=== PATIENT | female | born 1960 | race Caucasian/White ===

== ENCOUNTER 2023-08-29 21:48 | Outpatient (CLI) | payer MEDICAID, SELFPAY | END 2023-08-29 21:49 | disposition home or self-care (01) | LOC: AMB 09-05 05:24 | PROVIDERS: Visit Provider Emergency Medicine | DX: R07.89 Other chest pain (principal) | CPT/HCPCS: A0425; A0427 ==

== ENCOUNTER 2023-08-29 22:09 | Emergency (ER) | payer MEDICAID, SELFPAY ==
[2023-08-29 22:10] VITALS: BP 158/91; PULSE 96; RESP 16; TEMP 36.9; O2SAT 94; BMI 26.6
--- NOTE | 2023-08-29 22:28 | XR_ITS ---
Patient: SKY DUNN Facility:?[facility] Patient ID:?[id number] Site Patient ID:?[id number]. Site :?[id number] Study:?XRay-Chest 2v-08/29/2023 11:49:17 PM Ordering Physician:KWAKU Final Report: INDICATION: Chest pain. TECHNIQUE: Chest 2 views. COMPARISON: None. FINDINGS: Cardiovascular and mediastinum: Cardiomediastinal silhouette is within normal limits Lungs and pleural spaces: Lungs are clear. No sign of pleural effusion. No pneumothorax. Bones and soft tissues: No significant findings. IMPRESSION: No acute or significant findings. Dictated by John Ferrari MD @ 08/30/2023 1:07:24 AM Signed by:?John Ferrari MD @08/30/2023 1:07:24 AM (Electronic Signature)
--- NOTE | 2023-08-29 22:51 | ED.GENADULT ---
HPI - General Adult General Date Seen: 08/29/23 Chief complaint: Chest Pain Stated complaint: chest pain Time Seen by Provider: 08/29/23 22:28 History of Present Illness HPI narrative: 63-year-old female with a complex past medical history brought to the ER today by EMS from her independent. It past medical history according to the patient includes pancreatitis (possibly idiopathic, possibly related to gallbladder polyps? ) Chronic iron deficiency anemia, and 2 previous heart attacks (apparently had an angiogram done at [facility] in [facility] about 2 or 3 years ago after her 1st heart attack that showed no blockages). She is also on metoprolol for high blood pressure. No cholesterol meds. No diabetes. She had a hysterectomy at age 25 heavy vaginal bleeding. She has chronic neuropathy causing difficulty with sensory miramontes in her arms and legs which makes it hard for her to walk. She says it is possibly Cwebptf-Debty-Mjfmf. She has been rehabbing in 1st a shelter, then assisted living, and now an independent living for the past several months. She says she has been her current independent living since the end of June. She says initially she was not very nice when she got there because she had 3 friends who had in rapid succession. She was apparently told by the management today that they do not like her and that they want her to move out. Tonight she says she was in her apartment. She was worrying about her living situation. At around 9:00 p.m. or so she started having chest pain. She says she was just thinking about her situation with the pain started. It is in the center of her chest. It is not radiate. She felt short of breath. Her heart was racing. She was nauseous. She vomited 1 time per EMS. She is not able to describe the pain. No other symptoms. She called 911. Paramedics did an EKG that showed no ST elevations. Patient was refusing an IV. She had already taken aspirin 320 have 5 mg today so EMS did not administer any more. They did give 1 nitro which seemed to help her chest pain. She was nauseous and vomited once EN route. Initial heart rate was 130 but came down to about 100 in the rig. She does have chronic lower extremity edema worse in the right lower extremity than the left. This is unchanged from normal. No recent cough. No fever. In review of medical records I see she was in the hospital at [facility] last February. Past medical history according to [facility] care link includes: Coronary artery disease TIA Hypertension Graves disease Thyroidectomy Hypothyroidism Acute pancreatitis Foot cellulitis Degeneration of retina Posterior vitreous detachment Fatty liver Cervical radiculopathy Migraine headache Depressive disorder PTSD Alcohol use disorder, mild Tobacco use She was admitted to [facility] January 2023 for pancreatitis of unclear etiology. She had presented to the ER with right-sided abdominal pain radiating through to the back. Gallbladder ultrasound showed a polyp and possible stones. She was to follow up with surgery as an outpatient. She was seen in the ER 03/08/2023 for chest pain. D-dimer was normal. Troponin was normal. White count was 13.7. Hemoglobin 13.6. EKG showed sinus rhythm with an inferior infarct. Chest x-ray was normal. 2 hour delta troponin was ordered but the patient decline and requested to go home. Related Data Home Medications Medication Instructions Recorded Confirmed acyclovir 5 % topical ointment 1 applic topical 6XD 08/29/23 08/29/23 aspirin 81 mg capsule 81 mg PO DAILY 08/29/23 08/29/23 baclofen 10 mg tablet 10 mg PO Q8H 08/29/23 08/29/23 calcium carbonate 200 mg calcium 200 mg PO Q6H PRN 08/29/23 08/29/23 (500 mg) chewable tablet (Antacid (calcium carbonate)) cyanocobalamin (vitamin B-12) 1,000 mcg PO DAILY 08/29/23 08/29/23 1,000 mcg capsule folic acid 1 mg tablet 1 mg PO DAILY 08/29/23 08/29/23 furosemide 20 mg tablet (Lasix) 20 mg PO DAILY 08/29/23 08/29/23 gabapentin 300 mg capsule 900 mg PO Q8H 08/29/23 08/29/23 levothyroxine 112 mcg tablet 112 mcg PO DAILY 08/29/23 08/29/23 (Synthroid) loperamide 2 mg capsule (Imodium 2 mg PO Q6H PRN 08/29/23 08/29/23 A-D) methocarbamol 750 mg tablet 750 mg PO Q6H 08/29/23 08/29/23 metoprolol succinate 25 mg 25 mg PO DAILY 08/29/23 08/29/23 tablet,extended release 24 hr skvsxgle-dev-hpyzu acid 0.4 1 tab PO DAILY 08/29/23 08/29/23 mg-lycopene 300 mcg-lutein 250 mcg tablet (Cerovite Senior) ondansetron HCl 4 mg tablet 4 mg PO Q6-8H PRN 08/29/23 08/29/23 oxycodone-acetaminophen 5 mg-325 1 tab PO Q6H 08/29/23 08/29/23 mg tablet pantoprazole 40 mg tablet,delayed 40 mg PO BID 08/29/23 08/29/23 release (Protonix) peg 400-propylene glycol (PF) 0.4 1 drp ophthalmic (eye) DAILY PRN 08/29/23 08/29/23 %-0.3 % eye drops in a dropperette (Systane (PF)) prednisone 20 mg tablet 40 mg PO DAILY 08/29/23 08/29/23 sodium chloride 0.65 % nasal spray 1 spray intranasal Q4H PRN 08/29/23 08/29/23 aerosol (Saline Nasal) thiamine HCl (vitamin B1) 250 mg 250 mg PO DAILY 08/29/23 08/29/23 tablet triamcinolone acetonide 0.1 % 1 applic topical BID 08/29/23 08/29/23 topical cream Allergies Allergy/AdvReac Type Severity Reaction Status Date / Time clindamycin Allergy Severe Anaphylaxis Verified 08/29/23 22:46 cephalexin Allergy Mild Rash Verified 08/29/23 22:46 codeine Allergy Mild Itching Verified 08/29/23 22:46 erythromycin base Allergy Mild Rash Verified 08/29/23 22:46 meperidine [From Demerol] Allergy Mild Rash Verified 08/29/23 22:46 morphine Allergy Mild Rash Verified 08/29/23 22:46 propoxyphene Allergy Mild Rash Verified 08/29/23 22:46 Sulfa (Sulfonamide Allergy Mild Rash Verified 08/29/23 22:46 Antibiotics) tetracycline Allergy Mild Itching Verified 08/29/23 22:46 Penicillins Allergy Unknown Verified 08/29/23 22:46 cyclobenzaprine AdvReac Mild Anxiety Verified 08/29/23 22:46 Exam Narrative: Exam Narrative: Constitutional: Appears well-developed and well-nourished. Alert. Conversant. Non toxic. HENT: Head: Atraumatic. Nose: Nose normal. Mouth/Throat: Oral mucosa is clear and moist. no trismus. Pharynx normal. Tonsils symmetric. No tonsillar enlargement, erythema, or exudate. Eyes: Conjunctivae normal. EOM normal. Pupils equal, round, and reactive to light. No scleral icterus. Neck: Normal range of motion. Neck supple. No tracheal deviation present. No JVD Cardiovascular: Normal rate, regular rhythm. No gallop. No friction rub. No murmur heard. Symmetric radial and PT artery pulses Pulmonary/Chest: Effort normal. No stridor. No respiratory distress. No wheezes. No rales. No rhonchi . No tenderness. Abdominal: Soft. Bowel sounds normal. No distension. No mass. No tenderness. No rebound. No guarding. Musculoskeletal: RUE: Normal range of motion. No tenderness. No deformity LUE: Normal range of motion. No tenderness. No deformity RLE: Normal range of motion. 1+ edema. No tenderness. No deformity LLE: Normal range of motion. Trace edema. No tenderness. No deformity Patient's that she has has chronic asymmetric R>L lower extremity edema Neurological: Alert and oriented to person, place, and time. Normal strength. CN II-VII intact. No sensory deficit. GCS eye subscore is 4. GCS verbal subscore is 5. GCS motor subscore is 6. Normal coordination Skin: Skin is warm and dry. No rash noted. No pallor. Normal capillary refill. Psychiatric: Somewhat poor eye contact. She has a rambling historian. She is talking a lot about her difficult upbringing. She talks for a while about how she had heavy. Throughout her adolescent that led to a hysterectomy at age 21. She says her family does not like her and tell her that she is faking all of her illness. She says that the people at her independent living do not like her and have asked her to move out. She does not know why they do not like her. She says that 3 of her friends shortly after she moved into her independent living so she was ?not a very nice person for a while?. While she was grieving for their . She says she was told today that she would have to move out of the appended living. She has superficial healed scars on her left forearm which are apparently from self-harming behavior that occurred when she was an adolescent. She has not self harming lately. No thoughts of suicide. While the nurses are trying to start an IV to get a workup done she has an angry outburst at them. She initially shout that she just wants to go home. I responded to the room. I was able to deescalate her with verbal deescalation. Ultimately she agrees to allow them to try to start an IV and at least check labs. Const: Vital Signs, click to edit/add: Vital Signs - 24 hr 08/29/23 22:10 08/29/23 23:48 Temperature 98.4 F 98.6 F Pulse Rate [Pulse Oximeter] 96 86 Respiratory Rate 16 16 Blood Pressure [Le ft Upper Arm] 158/91 H 161/85 H Pulse Oximetry 94 93 Oxygen Delivery Me thod Room Air Room Air Course Course ED Course: Recheck-as the nurse was working on starting her IV she became angry and insisted on discharging to home. I went back to a room. I was able to calm her down. She agreed to go ahead with workup and allowed lab draw. Reevaluation(s) Reevaluation #1: Recheck-nurses are reporting that she has a difficult stick and they are having hard time getting an IV so we decided is to labs with butterfly. Patient does not want any further attempts at IV. We decided to go ahead with butterfly because At least we can get troponin to rule out NSTEMI that would be sufficient. If she does rule in she would need an IV for heparinization and further meds. Reevaluation #2: Recheck-labs were successfully drawn. Reevaluation #3: Recheck-at about 1145 patient is insisting on discharge. Unclear why she has changed her mind about staying. She wants discharge home. EKG nonischemic troponin negative. D-dimer pending. My review her chest x-ray shows no acute abnormality but formal radiology interpretation is not back yet. Vital Signs Vital signs: Initial Vital Signs Temperature 98.4 F 08/29/23 22:10 Temperature Source Temporal Artery Scan 08/29/23 22:10 Pulse Rate 96 08/29/23 22:10 Respiratory Rate 16 08/29/23 22:10 Blood Pressure 158/91 H 08/29/23 22:10 Blood Pressure Mean 113 H 08/29/23 22:10 Blood Pressure Position Supine 08/29/23 22:10 Pulse Oximetry 94 08/29/23 22:10 Oxygen Delivery Method Room Air 08/29/23 22:10 Vital Signs Temperature 98.4 F 08/29/23 22:10 Pulse Rate 96 08/29/23 22:10 Respiratory Rate 16 08/29/23 22:10 Blood Pressure 158/91 H 08/29/23 22:10 Pulse Oximetry 94 08/29/23 22:10 Oxygen Delivery Method Room Air 08/29/23 22:10 Temperature 98.6 F 08/29/23 23:48 Pulse Rate 86 08/29/23 23:48 Respiratory Rate 16 08/29/23 23:48 Blood Pressure 161/85 H 08/29/23 23:48 Pulse Oximetry 93 08/29/23 23:48 Oxygen Delivery Method Room Air 08/29/23 23:48 Medical Decision Making MDM Narrative Medical decision making narrative: This patient presents to the ER today for evaluation of chest pain that began about an hour prior to arrival tonight.. Differential was broad. No evidence of palpitations, syncope or other cardiac dysrhythmia. We considered possible ACS, however workup with EKG and troponin is negative. Given time since onset of symptoms this evening I do recommend that we keep the patient here in the ER for 2nd set of troponins. First troponin is normal but not enough time has elapsed since onset of her symptoms to confidently rule out ACS/NSTEMI. However the patient is adamantly demanding discharge and does not want stay. I expressed to her my concern that her chest pain is a concerning symptom and that I had advised her to stay here for further workup. However she is refusing. I do think she understands the diagnosis in question and the potential consequences of missed SC and the risk of . Ultimately I think she does have medical decision-making capacity and we cannot force her to stay in the ER for further workup. EKG shows no evidence for pericarditis. Clinical presentation not suggestive of myocarditis. Chest x-ray shows no evidence for pneumonia, pneumothorax, pulmonary edema, pleural effusion, rib fracture, cardiomegaly. Mediastinum is normal on the x-ray. The patient has no ripping or tearing pain through to the back and has symmetric pulses on exam, no other acute neuro findings so I doubt aortic dissection. Risk of radiation and contrast exposure would outweigh the benefit of CT angiogram. We considered PE for this patient. D-dimer is normal. Overall low risk for PE so would hold off on CT scan for now. She does have bilateral lower extremity edema, right more so than left. This is chronic for her and really not changed from baseline. Does not indicate the presence of an acute DVT. No wheezing or bronchospasm to suggest COPD/asthma. No signs of chest wall cellulitis, shingles, injury. She was very angry about her living situation. She apparently says that the management at her admitted living told her that they do not like her that she has to move out. She was angry and thinking about that tonight when her chest pain started. However she is requesting to be discharged back to her independent living at this time. Although it is against my advice medical advice, we will discharge the patient per her wishes. Discussed return precautions. Questions answered. Patient voices agreement with the plan. Lab Data Labs: Lab Results 08/29/23 Range/Units 23:20 WBC 8.78 (4.50-11.00) K/uL RBC 4.95 (4.00-5.20) m/uL Hgb 12.7 (12.0-16.0) gm/dL Hct 42.1 (33.0-51.0) % MCV 85 (80-100) fL MCH 26 (26-34) pg MCHC 30 L (32-36) gm/dL RDW Coeff of Sung 17.6 H (11.5-15.5) % Plt Count 197 (140-440) K/uL Neut % (Auto) 61.1 (42.0-72.0) % Lymph % (Auto) 27.3 (20-44) % Edmunds % (Auto) 9.3 (0.0-11.0) % Eos % (Auto) 0.5 (0.0-7.0) % Baso % (Auto) 0.9 (0.0-3.0) % Neut # (Auto) 5.36 (1.7-7.0) K/uL Lymph # (Auto) 2.40 (0.90-2.90) K/uL Edmunds # (Auto) 0.80 (0.00-0.90) K/UL Eos # (Auto) 0.04 (0.00-0.50) K/uL Baso # (Auto) 0.08 (0.00-0.30) K/uL Abs Immat Gran (auto) 0.08 (0.00-0.30) K/uL Imm/Tot Granulo (auto) 0.9 % D-Dimer Quant (PE/DVT) 0.44 (0.00-0.50) ug/ml Sodium 144 (135-149) mmol/L Potassium 4.0 (3.6-5.1) mmol/L Chloride 106 (96-114) mmol/L Carbon Dioxide 30 (20-32) mmol/L Anion Gap 8 (7-15) mEq/L BUN 12 (7-30) mg/dL Creatinine 0.6 (0.5-1.5) mg/dL Estimated Creat Clear 60.96 Estimated GFR 101 ml/min Glucose 118 H (60-115) mg/dL Calcium 9.1 (8.4-10.6) mg/dL Total Bilirubin 0.4 (0.1-1.5) mg/dL AST 19 (12-35) U/L ALT 13 (4-35) U/L Alkaline Phosphatase 93 (40-150) U/L Troponin I < 0.01 L (0.01-0.04) ng/mL Total Protein 7.3 (6.0-8.3) g/dL Albumin 4.2 (3.3-5.0) g/dL Lipase 82 (23-300) U/L Imaging Data Chest x-ray: My impression: Normal cardiac silhouette. Normal mediastinum. Lung stevens clear. No acute infiltrate. No pulmonary edema. No pleural effusion. No pneumothorax. Radiologist's impression: Formal radiology interpretation still pending at the time of discharge. Patient was insisting on discharge back to her independent living. ECG Data Attestation: I personally reviewed and interpreted this ECG as follows: Interpretation: Normal sinus rhythm . Artifact in leads V4, V5, V6 suggest possible PVCs but I do not see any on my read. Rate: 90 NH: 170 QRS axis: Normal axis. Tiny Q-waves in leads 2, 3. ST segment/T wave: No ST segment elevation or depression. QTc: 450 Discharge Plan Discharge Clinical Impression: Chest pain Patient Disposition: Home, Self-Care Condition: Stable Instructions: Chest Pain (DC) Additional Instructions: Please return to the ER right away if you have any worsening symptoms such as worsening chest pain, trouble breathing, dizzy spells, palpitations, or any other concerns. Even if you get better, please follow-up with your doctor within 2-4 days for a recheck Prescriptions: No Action ondansetron HCl 4 mg tablet 4 mg PO Q6-8H PRN oxycodone-acetaminophen 5-325 mg tablet 1 tab PO Q6H metoprolol succinate 25 mg tablet extended release 24 hr 25 mg PO DAILY loperamide [Imodium A-D] 2 mg capsule 2 mg PO Q6H PRN methocarbamol 750 mg tablet 750 mg PO Q6H thiamine HCl (vitamin B1) 250 mg tablet 250 mg PO DAILY triamcinolone acetonide 0.1 % cream 1 applic topical BID Saline Nasal 0.65 % aerosol,spray 1 spray intranasal Q4H PRN pantoprazole [Protonix] 40 mg tablet,delayed release (DR/EC) 40 mg PO BID prednisone 20 mg tablet 40 mg PO DAILY Rx Instructions: days 11-21 of therapy levothyroxine [Synthroid] 112 mcg tablet 112 mcg PO DAILY baclofen 10 mg tablet 10 mg PO Q8H calcium carbonate [Antacid (calcium carbonate)] 200 mg calcium (500 mg) tablet,chewable 200 mg PO Q6H PRN aspirin 81 mg capsule 81 mg PO DAILY acyclovir 5 % ointment 1 applic topical 6XD Systane (PF) 0.4-0.3 % dropperette 1 drp ophthalmic (eye) DAILY PRN furosemide [Lasix] 20 mg tablet 20 mg PO DAILY gabapentin 300 mg capsule 900 mg PO Q8H folic acid 1 mg tablet 1 mg PO DAILY Cerovite Senior 0.4 mg-300 mcg- 250 mcg tablet 1 tab PO DAILY cyanocobalamin (vitamin B-12) 1,000 mcg capsule 1,000 mcg PO DAILY Follow Up/Referrals: Provider,Not a Local [Primary Care Provider] - Stand Alone Forms: LOC&ALL Info Instructions
[2023-08-29 23:30] LABS: Basophils Absolute Auto 0.08 K/uL (0.00-0.30); Basophils Percent Auto 0.9 % (0.0-3.0); Eosinophils Absolute Auto 0.04 K/uL (0.00-0.50); Eosinophils Percent Auto 0.5 % (0.0-7.0); Hematocrit 42.1 % (33.0-51.0); Hemoglobin* 12.7 gm/dL (12.0-16.0); Immature Granulocytes Abs Auto 0.08 K/uL (0.00-0.30); Immature Granulocytes Pct Auto 0.9 %; Lymphocytes Percent Auto 27.3 % (20-44); Mean Corpuscular HGB Conc 30 gm/dL (32-36); Mean Corpuscular Hemoglobin 26 pg (26-34); Mean Corpuscular Volume 85 fL (80-100); Monocytes Percent Auto 9.3 % (0.0-11.0); Neutrophils Absolute Auto 5.36 K/uL (1.7-7.0); Neutrophils Percent Auto 61.1 % (42.0-72.0); Platelet Count* 197 K/uL (140-440); RDW Coefficient of Variation % 17.6 % (11.5-15.5); Red Blood Count 4.95 m/uL (4.00-5.20); White Blood Count* 8.78 K/uL (4.50-11.00)
[2023-08-29 23:40] LABS: Slide Review Reflex No
[2023-08-29 23:42] LABS: Albumin* 4.2 g/dL (3.3-5.0); Chloride* 106 mmol/L (96-114); Sodium* 144 mmol/L (135-149)
[2023-08-29 23:44] LABS: Creatinine* 0.6 mg/dL (0.5-1.5); Est. Creatinine Clearance* 60.96; Estimated Glomerular Filt Rate 101 ml/min
[2023-08-29 23:45] LABS: Alanine Aminotransferase* 13 U/L (4-35); Alkaline Phosphatase* 93 U/L (40-150); Anion Gap 8 mEq/L (7-15); Aspartate Amino Transferase* 19 U/L (12-35); Bilirubin Total* 0.4 mg/dL (0.1-1.5); Blood Urea Nitrogen* 12 mg/dL (7-30); Calcium* 9.1 mg/dL (8.4-10.6); Carbon Dioxide* 30 mmol/L (20-32); Glucose* 118 mg/dL (60-115); Lipase* 82 U/L (23-300); Total Protein* 7.3 g/dL (6.0-8.3)
[2023-08-29 23:48] VITALS: BP 161/85; PULSE 86; RESP 16; TEMP 37; O2SAT 93
[2023-08-29 23:48] LABS: D Dimer Quantitative* 0.44 ug/ml (0.00-0.50)
[2023-08-29 23:58] LABS: Troponin I* < 0.01 ng/mL (0.01-0.04)
== END 2023-08-30 00:24 | disposition home or self-care (01) ==
PROVIDERS: Emergency Provider Emergency Medicine
DX: R07.9 Chest pain, unspecified (principal)
CPT/HCPCS: 36415; 71046; 80053; 83690; 84484; 85025; 85379; 93005; 99284; 99285

== ENCOUNTER 2023-08-30 00:20 | Outpatient (CLI) | payer MEDICAID, SELFPAY | END 2023-08-30 00:21 | disposition home or self-care (01) | PROVIDERS: Visit Provider Family Medicine | DX: R51.9 Headache, unspecified (principal); Z99.3 Dependence on wheelchair | CPT/HCPCS: A0425; A0428 ==

== ENCOUNTER 2023-09-03 10:40 | Outpatient (CLI) | payer MEDICAID, SELFPAY | END 2023-09-03 10:41 | disposition home or self-care (01) | LOC: AMB 09-05 10:55 | PROVIDERS: Visit Provider Emergency Medicine | DX: R07.89 Other chest pain (principal) | CPT/HCPCS: A0998 ==

== ENCOUNTER 2023-09-20 23:47 | Outpatient (CLI) | payer MEDICAID, SELFPAY | END 2023-09-20 23:48 | disposition home or self-care (01) | LOC: AMB 09-26 07:21 | PROVIDERS: Visit Provider Internal Medicine | DX: S61.012A Laceration without foreign body of left thumb without damage to nail, initial encounter (principal); X78.1XXA Intentional self-harm by knife, initial encounter; Y92.030 Kitchen in apartment as the place of occurrence of the external cause | CPT/HCPCS: A0998 ==

== ENCOUNTER 2023-11-27 12:31 | Outpatient (CLI) | payer MEDICAID, SELFPAY ==
--- OUTSIDE RECORDS SUMMARY | 2023-11-27 12:39 | XMS_ITS | Encounter Summary ---
Author Organization [employer] Address [address], [place] [address] Care Team Providers Care Home Connect Lpn Name Role Phone Aashish Sosa MD Primary Care Provider [phone] Reason for Visit * Reason Comments Follow-up Encounter Details Date Type Department Care Team (Late st Contact Info) Description 11/25/2023 Telephone [facility] [address] [facility] [place] [phone] Aashish Sosa MD [address] [place] [phone] Follow-up Social History Tobacco Use Types Packs/Day Years Used Date Smoking Tobacco: Some Days Cigarettes 0.3 30 Started: 02/24/1990; Last attempted to quit: 02/25/2020 Smokeless Tobacco: Never Comments:rare Alcohol Use Standard Drinks/Week Comments Not Currently 0 (1 standard drink = 0.6 oz pur e alcohol) rare Sex and Gender Information Value Date Recorded Sex Assigned at Not on file Gender Identity Not on file Sexual Orientation Not on file documented as of this encounter Nursing Notes * Alaina Dillon RN - 11/25/2023 1:57 PM CDT Addressed in TE Orders 11/21 and refill 11/21. documented in this encounter Plan of Treatment Upcoming Encounters Date Type Department Care Team (Late st Contact Info) Description 01/21/2024 11:00 AM CDT Appointment [facility] [address] [facility] [place] [address] Aashish Sosa MD [address] [place] [phone] documented as of this encounter Visit Diagnoses Not on filedocumented in this encounter Care Teams Home Connect Lpn Relationship Specialty Start Date End Date Aashish Sosa MD [address] [place] [address] [place] [id number] PCP - General Family Practice 09/30/20 documented as of this encounter
--- OUTSIDE RECORDS SUMMARY | 2023-11-27 12:39 | XMS_ITS | Encounter Summary ---
Author Organization [employer] Address [address] [address] Care Team Providers Care Size Tester Name Role Phone Aashish Sosa MD Primary Care Provider Reason for Referral * Procedure/Equipment (Routine) - Incomplete Specialty Diagnoses / Procedures Referred By Contkierra t Referred To Contact Diagnoses Encounter for screening mammogram for malignant neoplasm of breast Procedures MM Mammogram Screening Bilat Aashish Dominique MD [address] [place] [address] [place] [address] Referral ID Status Reason Start Date Expiration Date V isits Requested Visits Authorized [id number] Incomplete 11/25/2023 02/23/2025 1 1 Reason for Visit * Reason Comments ORDERS Encounter Details Date Type Department Care Team (Late st Contact Info) Description 11/22/2023 Telephone [facility] [address] [facility] [place] [phone] Aashish Sosa MD [address] [place] [phone] ORDERS Social History Tobacco Use Types Packs/Day Years [...] as of this encounter Nursing Notes * Analilia Anthony MA - 11/25/2023 2:30 PM CDT Spoke to patient and advised that we just spoke with [facility] and they do have the orders so she can call and make appointment. * Alaina Dillon RN - 11/25/2023 1:53 PM CDT Pt states she called [place] [facility] and no faxed orders have been received. Routing to [facility] to follow up. * Analilia Anthony MA - 11/25/2023 10:30 AM CDT Spoke to patient and advised of the below. Patient verbalized understanding. Patient also inquired about oxyCODONE-acetaminophen (PERCOCET) 5-325 MG tablet and the refill. Advised that we are waitingon PCP to sign medication. See Refill Encounter 11.22.2023. * Analilia Anthony MA - 11/25/2023 10:[address] Abd Pelvis W IV Cont and CT Fusion Sinus WO IV Cont orders and faxed to [facility] [phone]. Ordered mammogram, printed, and faxed to [facility] [phone] * Subha Gates RN - 11/22/2023 10:50 AM CDT Patient wonders about having imaging orders sent to [facility] near her to have completed instead of doing at [facility]. Requesting the orders for CT Abd Pelvis W IV Cont and CT Fusion Sinus WO IV Cont that were ordered back in April to be sent to [facility]. Patient does not have the fax number, but the phone number for [facility] is [phone]. She is also due for a mammogram and wonders if there is way to have this ordered to [facility] as well? documented in this encounter Plan of Treatment Upcoming Encounters Date Type Department Care Team (Late st Contact Info) Description 01/21/2024 11:00 AM CDT Appointment [facility] [address] [facility] [place] [address] Aashish Sosa MD [address] [place] [phone] Scheduled Orders Name Type Priority Associated Diagnoses Orde r Schedule MM Mammogram Screening Bilat W CAD Imaging New Routine Encounter for screening mammogram for malignant neoplasm of breast Expected: 11/25/2023 (Approximate), Expires: 11/24/2024 documented as of this encounter Visit Diagnoses Diagnosis Encounter for screening mammogram for malignant neoplasm of breast- Primary Other screening mammogram documented in this encounter Care Teams Size Tester Relationship Specialty Start Date End Date Aashish Sosa MD [address] [place] [address] [place] [phone] PCP - General Family Practice 09/30/20 documented as of this encounter
--- OUTSIDE RECORDS SUMMARY | 2023-11-27 12:39 | XMS_ITS | Clinical Summary ---
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 3:10 PM CDT 03/06/2019 3:10 PM CDT Aashish Sosa MD LAB_1 [facility] [address] [place] [address], [facility] [address] [place] [id number], [facility] [phone] * CT Chest WO IV Cont Lung Screening (12/20/2017 10:55 AM CDT) Anatomical Region Laterality Modality Chest, Lung Computed Tomogra phy 12/20/2017 10:4 6 AM CDT Impressions 12/20/2017 12:58 PM CDT IMPRESSION: Stable 4 mm nodule right upper lobe. No new suspicious findings. ACR Lung-RADS Category 2: Benign appearance or behavior. Nodules with a very low likelihood of becoming a clinically active cancer due to size or lack of growth. Continue annual screening with low-dose chest CT in 12 months. Narrative 12/20/2017 12:58 PM CDT COMPARISON: 02/14/2017 TECHNIQUE: Images through the chest were obtained without contrast using a low dose lung screening technique. FINDINGS: The 4 mm nodule in the right upper lobe is unchanged now seen on slice 33 of series 4. No other new nodules. Minimal fibrotic changes at the lung bases left greater than right, stable. No new since or suspicious adenopathy. Minimal coronary calcifications. Upper abdomen grossly unremarkable. No aggressive bony lesions. Aashish Sosa MD RAD CT from Last 3 Months or Most Recently Relevant to Health Maintenance Advance Directives * Full Code (Latest Code Status on File) Date Activated Date Inactivated Comments 02/23/2019 4:36 PM 02/28/2019 1:13 PM Care Teams Emergency Management System Director Relationship Specialty Start Date End Date Aashish Sosa MD [address] [place] [address] [place] [address] PCP - General Family Practice 09/30/20
--- OUTSIDE RECORDS SUMMARY | 2023-11-27 12:39 | XMS_ITS | Encounter Summary ---
Author Organization [facility] Address [address], [place] [address] Care Team Providers Care Guide Alpine Name Role Phone Aashish Sosa MD Primary Care Provider Reason for Referral * Procedure/Equipment (Routine) - New Request Specialty Diagnoses / Procedures Referred By Contkierra t Referred To Contact Diagnoses Chronic bilateral low back pain with right-sided sciatica (HRC) Idiopathic peripheral neuropathy Unsteadiness Procedures Wheelchair - Manual Aashish Sosa MD [address] [place] [address] [place] [address] Referral ID Status Reason Start Date Expiration Date V isits Requested Visits Authorized [id number] New Request 11/14/2023 05/12/2024 1 1 Reason for Visit * Reason Comments Dme Supply Encounter Details Date Type Department Care Team (Late st Contact Info) Description 11/14/2023 Telephone [facility] Medicine [address] [facility] [place] [phone] Aashish Sosa MD [address] [place] [phone] Dme Supply Social History Tobacco Use Types Packs/Day Years [...] as of this encounter Nursing Notes * Suzi Monsivais CNA - 11/14/2023 3:59 PM CDT Wheelchair order faxed to caseworker at [phone] * Aashish Sosa MD - 11/14/2023 3:52 PM CDT DME order signed for manual wheelchair. Thank you. WK. * Suzi Monsivais CNA - 11/14/2023 2:50 PM CDT Clinician: Route to [facility] Patient/animal care taker request: New Order: DME wheelchair Specific Request: [facility] requesting order for manual wheel chair due to mobility issues. Order pended, please sign if appropriate documented in this encounter Plan of Treatment Upcoming Encounters Date Type Department Care Team (Late st Contact Info) Description 01/21/2024 11:00 AM CDT Appointment [facility] Medicine [address] [facility] [place] [address] Aashish Sosa MD [address] [place] [address] [place] [address] documented as of this encounter Visit Diagnoses Diagnosis Chronic bilateral low back pain with right-sided sciatica (HRC)- Primary Idiopathic peripheral neuropathy Unspecified hereditary and idiopathic peripheral neuropathy Unsteadiness Abnormality of gait documented in this encounter Care Teams Guide Alpine Relationship Specialty Start Date End Date Aashish Sosa MD [address] [place] [address] [place] [address] PCP - General Family Practice 09/30/20 documented as of this encounter
--- OUTSIDE RECORDS SUMMARY | 2023-11-27 12:39 | XMS_ITS | Encounter Summary ---
Author Organization [facility] Address [address] [address] Care Team Providers Care Chief Embalmer Name Role Phone Aashish Sosa MD Primary Care Provider [phone] Reason for Visit * Reason Comments Refill Oxycodone Encounter Details Date Type Department Care Team (Late st Contact Info) Description 11/22/2023 Refill [facility] Medicine [address] [facility] [place] [phone] Aashish Sosa MD [address] [place] [address] Refill (Oxycodone) Social History Tobacco Use Types Packs/Day Years [...] Notes * Alaina Dillon RN - 11/25/2023 1:54 PM CDT Notified pt Rx has been sent. * Subha Gates RN - 11/22/2023 10:43 AM CDT Further Assistance Needed on Refill from Clinician RN reviewed. Signed order needed. Medication not on Organizational Ambulatory Medication List Patient requesting refill of Oxycodone. Will need it filled Saturday so her pharmacy can deliver it prior to running out by Saturday morning. Last prescribed #180 tablets on 10/29/23. Last visit with PCP was 10/29/23. Has upcoming visit scheduled: Future Appointments Date Time Provider Department Center 01/21/2024 11:00 AM Aashish Sosa MD [facility] Review pended order for accuracy and sign if appropriate and Patient is expecting call back Requested Prescriptions Pending Prescriptions Disp Refills oxyCODONE-acetaminophen (PERCOCET) 5-325 MG tablet 180 Tablet 0 Sig: TAKE 1-2 TABLETS BY MOUTH EVERY 4-6 HOURS NEEDED FOR PAIN. Do not start before November 26, 2023. documented in this encounter Plan of Treatment Upcoming Encounters Date Type Department Care Team (Late st Contact Info) Description 01/21/2024 11:00 AM CDT Appointment [facility] [address] [place] [address] [place] [address] Aashish Sosa MD [address] [place] [address] [place] [address] documented as of this encounter Visit Diagnoses Diagnosis Chronic bilateral low back pain with right-sided sciatica (HRC) documented in this encounter Care Teams Chief Embalmer Relationship Specialty Start Date End Date Aashish Sosa MD [address] [place] [address] [place] [address] PCP - General Family Practice 09/30/20 documented as of this encounter
--- OUTSIDE RECORDS SUMMARY | 2023-11-27 12:39 | XMS_ITS | Encounter Summary ---
Author Organization [facility] Address [address] [place] [address] Care Team Providers Care Tool And Fixture Repairer Name Role Phone Aashish Sosa MD Primary Care Provider Reason for Visit * Reason Comments Order Questions Encounter Details Date Type Department Care Team (Late st Contact Info) Description 11/25/2023 Telephone [facility] Medicine [address] [facility] [place] [phone] Aashish Sosa MD [address] [facility] [place] [phone] Order Questions Social History Tobacco Use Types Packs/Day Years [...] Notes * Analilia Anthony MA - 11/25/2023 2:28 PM CDT Spoke to Sara at [place] and clarified what she had said regarding a sinus CT scan. Sara stated they have never seen ordered as CT Fusion but they will go ahead and get a CT scan done of the sinuses in the head region. * Emmie Weiner 11/25/2023 2:02 PM CDT Other Questions/Concerns/FYI Is this a symptom? No What is your question or concern? [facility] calling needsa call back unsure what CT Fusion sinus means. Please advise Have you recently been seen for this? N/A Preferred communication method: Phone Call. Is it okay to leave a detailed message on your voicemail? Yes Is there anything else I can help you with today? No documented in this encounter Plan of Treatment Upcoming Encounters Date Type Department Care Team (Late st Contact Info) Description 01/21/2024 11:00 AM CDT Appointment [facility] Medicine [address] [facility] [place] [address] Aashish Sosa MD [address] [place] [address] documented as of this encounter Visit Diagnoses Not on filedocumented in this encounter Care Teams Tool And Fixture Repairer Relationship Specialty Start Date End Date Aashish Sosa MD [address] [place] [address] PCP - General Family Practice 09/30/20 documented as of this encounter
--- OUTSIDE RECORDS SUMMARY | 2023-11-27 12:40 | XMS_ITS | Encounter Summary ---
Author Organization [employer] [facility] Address [address] [address] Care Team Providers Care Loading Machine Adjuster Name Role Phone Aashish Sosa MD Primary Care Provider Reason for Visit * Reason Comments Care Coordination Encounter Details Date Type Department Care Team (Late Contact Info) Description 03/11/2018 Care Conference [address] [place] [address] Aashish Sosa MD [address] [place] [address] [place] [address] Social History Tobacco Use Types Packs/Day Years Used Date Smoking Tobacco: Some Days Cigarettes Smokeless Tobacco: Never Comments:2 cig/day Alcohol Use Standard Drinks/Week Comments Yes 0 (1 standard drink = 0.6 oz pur e alcohol) rare Sex and Gender Information Value Date Recorded Sex Assigned at Not on file Gender Identity Not on file Sexual Orientation Not on file documented as of this encounter Plan of Treatment Upcoming Encounters Date Type Department Care Team ([facility] Contact Info) Description 01/21/2024 11:00 AM CDT Appointment [facility] Medicine [address] [facility] [place] [address] Aashish Sosa MD [address] [place] [address] [place] [address] documented as of this encounter Visit Diagnoses Not on filedocumented in this encounter Care Teams Loading Machine Adjuster Relationship Specialty Start Date End Date Aashish Sosa MD [address] [place] [address] PCP - General Family Practice 09/30/20 documented as of this encounter
--- OUTSIDE RECORDS SUMMARY | 2023-11-27 12:40 | XMS_ITS | Encounter Summary ---
Author Organization [facility] Address [address], [place] [address] Care Team Providers Care Information Manager Name Role Phone Aashish Sosa MD Primary Care Provider Reason for Referral * Therapies (Routine) - New Request Specialty Diagnoses / Procedures Referred By Erick t Referred To Contact Diagnoses Hammer toe of second toe of right foot Chronic bilateral low back pain with right-sided sciatica (HRC) Rotator cuff syndrome of left shoulder Aashish Sosa MD [address] [place] [address] [place] [address] Referral ID Status Reason Start Date Expiration Date V isits Requested Visits Authorized [id number] New Request 10/29/2023 10/28/2024 1 1 Scheduling Instructions This order is your clinician's recommendation for a service and is not an insurance referral which authorizes payment. The recommended service and/or location may not be covered by your insurance plan. Please call the number on your insurance card to find out your specific benefits and coverage for the recommended services and/or location. If you need help scheduling the recommended services, please ask your clinician's staff to assist you. Question Answer Appointment Urgency? Non-Urgent Requested Services Evaluate and treat May use saline for irrigation or cleansing Yes dexamethasone use Yes May check glucose per protocol (see policy link below) or if patient has symptoms? Yes Comments Reason for Visit * Reason Comments Follow-up Encounter Details Date Type Department Care Team (Late st Contact Info) Description 10/29/2023 11:00 AM CDT Office Visit [facility] [address] [place] [address] Aashish Sosa MD [address] [place] [address] Other chronic sinusitis (Primary Dx); Vasomotor rhinitis; Chronic pain syndrome; Chronic bilateral low back pain with right-sided sciatica (HRC); Rotator cuff syndrome of left shoulder; Type 2 diabetes mellitus with obesity (HRC); Hammer toe of second toe of right foot Social History Tobacco Use Types Packs/Day Years [...] on file documented as of this encounter Last Filed Vital Signs Vital Sign Reading Time Taken Comments Blood Pressure 151/70 10/29/2023 11:28 AM CDT Pulse 77 10/29/2023 11:28 AM CDT Temperature - - Respiratory Rate - - Oxygen Saturation - - Inhaled Oxygen Concentration - - Weight 78.5 kg (173 lb) 10/29/2023 11:28 AM CDT Height - - Body Mass Index 27.92 01/08/2023 2:38 PM CDT documented in this encounter Patient Instructions * Patient Instructions* Aashish Sosa MD - 10/29/2023 11:00 AM CDT PT for shoulder, back, foot. Refill oxycodone. Labs today. Enjoy [place]. See you in 3 months. documented in this encounter Progress Notes * Aashish Sosa MD - 10/29/2023 11:00 AM CDT SUBJECTIVE: Chief Complaint Patient presents with Follow-up HPI: Comes in today regarding chronic sinusitis rhinorrhea, chronic pain, diabetes. Chronic sinusitis and chronic vasomotor rhinitis. She has taken steroids low dose several times a year because of her chronic sinusitis vasomotor rhinitis. She has an upcoming appointment with ENT inthe next month. She has had recurrent sinus infections, chronic congestion, facial pain. The only thing relieves it as steroids. Her nose runs quite a bit as well. She has not tolerate nasal steroids as she gets bloody nose. No fever or chills now. No purulent drainage or epistaxis at this time. Nohistory of nasal polyps or NSAID allergy. Chronic pain syndrome, bilateral low back pain, rotator cuff syndrome left shoulder. She takes Percocet which he has been taking chronically. She has also peripheral neuropathy which she takes pain medications as well as gabapentin. Needs refill of her Percocet. Use has been stable. Painful right 2nd toe. This rubs on her shoe. She is form toe. She is never seen Podiatry. She doesnot do much walking as she is mostly wheelchair-bound but starting. He is being to walk more noticing more pain. Type 2 diabetes mellitus patient requiring medication. She has due for an A1c. She does have chronic peripheral neuropathy which has been evaluated by Neurology and not related to diabetes. Medications: Outpatient Medications Prior to Visit Medication Sig acetaminophen (SM PAIN RELIEVER) 325 MG tablet 2 TABS (650MG) BY MOUTH THREE TIMES DAILY (DX: PAIN)NOT TO EXCEED 4000MG APAP/24HRS acyclovir (ZOVIRAX) 5 % ointment APPLY TO AFFECTED AREA TOPICALLY DIRECTED NEEDED ammonium lactate (LAC-HYDRIN) 12 % lotion Apply topically two times a day. ANTIFUNGAL 2 % powder Apply topically two times a day. aspirin EC (ASPIRIN LOW DOSE) 81 MG enteric coated tablet Take 1 Tablet (81 mg) by mouth daily. azithromycin (ZITHROMAX) 250 MG tablet Take 1 Tablet (250 mg) by mouth daily. baclofen (LIORESAL) 10 MG tablet Take 1 Tablet (10 mg) by mouth three times a day. calcium carbonate (TUMS) 500 MG chewable tablet Chew and swallow 2 Tablets (1,000 mg) by mouth every 6 hours as needed for Heartburn. cholecalciferol (VITAMIN D3) 50 MCG (2000 UT) tablet TAKE 1 TABLET BY MOUTH ONCE DAILY EPINEPHrine (EPIPEN) 0.3 MG/0.3ML injection Inject 0.3 mL intramuscularly once as needed. ferrous sulfate 325 (65 Fe) MG tablet Take 1 Tablet (325 mg) by mouth daily with meal. fluticasone propionate (FLONASE) 50 MCG/ACT nasal solution Place 2 Sprays into both nostrils daily. folic acid 1 MG tablet Take 1 Tablet (1 mg) by mouth daily. furosemide (LASIX) 20 MG tablet Take 1 Tablet (20 mg) by mouth daily. gabapentin (NEURONTIN) 300 MG capsule TAKE 3 CAPSULES (900MG) BY MOUTH THREE TIMES DAILY gabapentin (NEURONTIN) 400 MG capsule Take 1 Capsule (400 mg) by mouth three times a day. HYDROXYPROPYL METHYLCELLULOSE (ISOPTO TEARS) 0.5 % eye drop solution INSTILL 1 DROP IN BOTH EYES FOUR TIMES DAILY ketoconazole (NIZORAL) 2 % shampoo Apply topically daily as needed levothyroxine (SYNTHROID) 112 MCG tablet Take 1 Tablet (112 mcg) by mouth daily. lidocaine (SALONPAS PAIN RELIEVING) 4 % patch Apply 1 Patch to skin daily. Leave on for up to 12 hours in a 24 hour period, then remove. loperamide (IMODIUM) 2 MG capsule Take 1 Capsule (2 mg) by mouth 4 times daily as needed for Diarrhea. methocarbamol (ROBAXIN) 750 MG tablet Take 1 Tablet (750 mg) by mouth 4 times a day. metoprolol succinate (TOPROL XL) 25 MG 24 hour release tablet Take 1 Tablet (25 mg) by mouth daily. Multiple Vitamins-Minerals (SENTRY SENIOR) TABS Take 1 Tablet by mouth daily. nicotine (NICODERM CQ) 21 MG/24HR patch Apply 1 Patch to skin every 24 hours. Remove old patch prior to new patch application nystatin (MYCOSTATIN) 328141 UNIT/GM powder APPLY TO AFFECTED AREA TOPICALLY DIRECTED ondansetron (ZOFRAN) 4 MG tablet Take 1 Tablet (4 mg) by mouth every 8 hours as needed. ondansetron (ZOFRAN-ODT) 4 MG disintegrating tablet Take 1 Tablet (4 mg) by mouth every 8 hours as needed for Nausea. pantoprazole DR (PROTONIX) 40 MG tablet Take 1 Tablet (40 mg) by mouth two times a day. polyethyl-propylene glycol (SYSTANE) 0.4-0.3 % PF eye drops Place 1-2 Drops into both eyes as needed for Dry Eyes. polyethylene glycol-propylene glycol (SYSTANE) 0.4-0.3 % eye drop solution Place 1-2 Drops into both eyes every 24 hours as needed. Pyridoxine HCl (VITAMIN B-6) 100 MG tablet TAKE 2 AND 1/2 TABLETS BY MOUTH ONCE DAILY. saline (OCEAN) 0.65 % nasal solution Place 2 Sprays into both nostrils every 2 hours as needed for Congestion. sucralfate (CARAFATE) 1 GM/10ML suspension Take 10 mL (1 g) by mouth 4 times a day. triamcinolone acetonide (KENALOG) 0.1 % ointment Apply topically two times a day. vitamin B-12 (AKA: CYANOCOBALAMIN) 1000 MCG tablet Take 1 Tablet (1,000 mcg) by mouth daily. [DISCONTINUED] oxyCODONE-acetaminophen (PERCOCET) 5-325 MG tablet TAKE 1-2 TABLETS BY MOUTH EVERY 4-6 HOURS NEEDED FOR PAIN. [DISCONTINUED] predniSONE (DELTASONE) 10 MG tablet Take 1 Tablet (10 mg) by mouth daily. [DISCONTINUED] thiamine 100 MG tablet VIALS* TAKE 2.5 TABS (250MG) BY MOUTH ONCE DAILY No facility-administered medications prior to visit. Adverse Drug Reactions: Allergies Allergen Reactions Clindamycin Hives and Rash Codeine Itching Doxycycline Other, see comments esophagitis Morphine Hives, Rash and Throat Irritation Penicillins Hives and Rash Sulfa Antibiotics Hives and Rash Flexeril [Cyclobenzaprine] Mental reaction Social: Nonsmoker. Review of systems: Cardiac, respiratory, neurologic negative other than the present complaints OBJECTIVE: Vital Signs: BP (!) 151/70 (BP Location: Left Arm, BP Cuff Size: Large) Pulse 77 Wt 173 lb (78.5 kg) BMI 27.92 kg/m?? General: Alert and oriented in no apparent distress. Eyes: Full EOM, PERRLA, without lesions or injection. Ears: Canals and TMs normal. Nose: Patent, without deformity. Neck: Supple, without masses, lymphadenopathy, or tenderness. Throat: Moist mucous membranes without lesions, erythema, or exudate. Heart: RR without murmurs, rubs, or gallops. Respiratory: Normal respiratory effort. Lungs clear with good breath sounds. Abdomen: Flat, soft and nontender without guarding rebound or masses. Normal bowel sounds. Extremities: No clubbing, cyanosis or edema. ASSESSMENT/PLAN: 1. Chronic sinusitis 2. Vasomotor rhinitis Assessment: I am very hesitant to give her steroids she has been on them several times this year. He states low-dose steroids help. She is very adamant about taking them until she sees ENT least for few days. She is unable to sleep due to the congestion. Risks benefits side effects discussed regarding systemic corticosteroids. Plan: 1. Astelin spray 2 sprays in each nostril b.i.d. 2. Prednisone 10 mg daily for 10 days. 3. ENT consultation 4. Report any signs or symptoms sinusitis. 3. Chronic pain syndrome 4. Chronic bilateral low back pain 5. Rotator cuff syndrome left shoulder Assessment: Think she would benefit physical therapy. PDMP checked and stable. Plan: 1. Physical therapy for evaluation treatment. 2. Refill Percocet 3. Follow up in 1 month. 6. Type 2 diabetes mellitus controlled Assessment: She is gained weight. Has been less active. Check A1c Plan: 1. Continue to increase activity and improve diet 2. Check A1c comprehensive panel today. 7. Hammertoe 2nd right Assessment: Inspection he has a classic hammertoe. She will observe at this time. Plan: 1. P.r.n. consultation with Podiatry 2. She will wear accommodative shoes. This dictation was generated with voice recognition software and may contain typographical errors. documented in this encounter Plan of Treatment Upcoming Encounters Date Type Department Care Team (Late st Contact Info) Description 01/21/2024 11:00 AM CDT Appointment [facility] [address] [place] [address] [place] [address] Aashish Sosa MD [address] [place] [address] [place] [address] Scheduled Referrals Name Type Priority Associated Diagnoses Orde r Schedule Physical Therapy Referral Routine Hammer toe of second toe of right foot Chronic bilateral low back pain with right-sided sciatica (HRC) Rotator cuff syndrome of left shoulder Ordered: 10/29/2023 documented as of this encounter Visit Diagnoses Diagnosis Other chronic sinusitis- Primary Vasomotor rhinitis Allergic rhinitis, cause unspecified Chronic pain syndrome Chronic bilateral low back pain with right-sided sciatica (HRC) Rotator cuff syndrome of left shoulder Disorders of bursae and tendons in shoulder region, unspecified Type 2 diabetes mellitus with obesity (HRC) Hammer toe of second toe of right foot documented in this encounter Care Teams Information Manager Relationship Specialty Start Date End Date Aashish Sosa MD [address] [place] [address] PCP - General Family Practice 09/30/20 documented as of this encounter
--- OUTSIDE RECORDS SUMMARY | 2023-11-27 12:40 | XMS_ITS | Encounter Summary ---
Author Organization [employer] Address [address] [address] Care Team Providers Care Precision Market Insights Name Role Phone Aashish Sosa MD Primary Care Provider [phone] Reason for Visit * Reason Comments Appt. Work In Request Encounter Details Date Type Department Care Team (Late st Contact Info) Description 09/03/2023 Telephone [facility] Medicine 300 [facility] [place] [phone] Aashish Sosa MD [address] [place] [phone] Appt. Work In Request Social History Tobacco Use Types Packs/Day Years [...] as of this encounter Nursing Notes * Manjula Kate - 09/04/2023 4:11 PM CDT Spoke with Pt notified 10/07 is the soonest with PCP. Pt will keep appointment. * Aashish Sosa MD - 09/04/2023 3:27 PM CDT Please schedule phone or video visit at next available appointment. This is not urgent. If she needs to be seen sooner she can follow up with 1 of my partners. Thank you. WK. * Alaina Dillon RN - 09/03/2023 11:27 AM CDT Clinician: Review and advise, Route to [facility], and Patient is expecting a call back from [facility]. Patient/medicare contact specialist request: Appointment Work In: phone follow up. Route to Clinic RN for transportation assistance if provider would like to see pt in person as she reports not having transpiration. Specific Request: Pt requesting phone follow up with PCP in the next few weeks. Reports recently moving facilities, living in [place] now. Reports feeling stressed as she does not like her residence. ER visit on 08/30/23 due to Chest pain, SOB & HTN. Pt states she was evaluated by ambulance today 09/02 at her facility given chest pain and SOB during meeting with staff. Pt states symptoms have resolved. Inquiring on medication adjustments. Design Inserter advised follow up with PCP is recommended. Routing message to PCP to review. Advised returning to ER if chest pain or SOB returns. Pt verbalized understanding. Future Appointments Provider Department Center 10/08/2023 2:00 PM Asahish Sosa MD [facility] 10/29/2023 11:00 AM Aashish Sosa MD [facility] documented in this encounter Plan of Treatment Upcoming Encounters Date Type Department Care Team (Late st Contact Info) Description 01/21/2024 11:00 AM CDT Appointment [facility] [address] [place] [address] Aashish Sosa MD [address] [place] [address] [place] [address] documented as of this encounter Visit Diagnoses Not on filedocumented in this encounter Care Teams [employer] Market Insights Relationship Specialty Start Date End Date Aashish Sosa MD [address] [place] [address] PCP - General Family Practice 09/30/20 documented as of this encounter
--- OUTSIDE RECORDS SUMMARY | 2023-11-27 12:40 | XMS_ITS | Encounter Summary ---
Author Organization [employer] Address [address], [place] [address] Care Team Providers Care Lamination Spinner Name Role Phone Aashish Sosa MD Primary Care Provider [phone] Reason for Visit * Reason Comments Medication Pharmacy Encounter Details Date Type Department Care Team (Late st Contact Info) Description 10/29/2023 Telephone [facility] [place] [phone] Aashish Sosa MD [address] [facility] [place] [phone] Medication Pharmacy Social History Tobacco Use Types Packs/Day Years [...] Nursing Notes * Suzi Monsivais CNA - 10/30/2023 2:29 PM CDT Pharmacy notified * Aashish Sosa MD - 10/30/2023 2:17 PM CDT Please discontinue thiamine. She does not need this medication. Thank you. WK. * Analilia Anthony MA - 10/30/2023 8:45 AM CDT Please clarify. RX was sent on 10.29.2023 for Thiamine. Should pharmacy discontinue? * Aashish Sosa MD - 10/29/2023 4:10 PM CDT She will get all of the vitamins she needs including thiamine from an OTC multivitamin she can takeby mouth. She does not need to take extra thiamine. Thank you. WK * Alaina Dillon RN - 10/29/2023 1:23 PM CDT Clinician: Review and advise, Route to [facility], and Pharmacy is expecting a call back from [facility] Patient/healthcare management consultant request: Outside pharmacy questions Specific Request: Pt's pharmacy inquiring on rx wording in sig. States vials on tablet order. Would like PCP to clarify how pharmacy should fill- vials or tablets? thiamine 100 MG tablet [[id number]] Order Details Dose, Route, Frequency: As Directed Dispense Quantity: 75 Tablet Refills: 3 Sig: VIALS* TAKE 2.5 TABS (250MG) BY MOUTH ONCE DAILY * Bonny Castaneda - 10/29/2023 1:14 PM CDT Medications - Pharmacy Calls Is your question or concern about a Prior Authorization? No. What is the question or concern? Pharmacy needs clarification of medicine What is the name and dose of the medication? thiamine 100 MG tablet Who prescribed it? Aashish Sosa MD Is it okay to leave a detailed message on your voicemail? Yes Is there anything else I can help you with today? documented in this encounter Plan of Treatment Upcoming Encounters Date Type Department Care Team (Late st Contact Info) Description 01/21/2024 11:00 AM CDT Appointment [place] [place] [address] Aashish Sosa MD [address] [place] [address] documented as of this encounter Visit Diagnoses Not on filedocumented in this encounter Care Teams Lamination Spinner Relationship Specialty Start Date End Date Aashish Sosa MD [address] [place] [address] [place] [address] PCP - General Family Practice 09/30/20 documented as of this encounter
--- OUTSIDE RECORDS SUMMARY | 2023-11-27 12:40 | XMS_ITS | Encounter Summary ---
Author Organization [employer] Address [address] [place] [address] Care Team Providers Care Bark Tanner Name Role Phone Aashish Sosa MD Primary Care Provider [phone] Reason for Visit * Reason Comments Prior Authorization For Medication Encounter Details Date Type Department Care Team (Late st Contact Info) Description 08/09/2023 [facility] [address] [employer] [place] [phone] Aashish Sosa MD [address] [place] [address] Prior Authorization For Medication Social History Tobacco Use Types Packs/Day Years [...] as of this encounter Nursing Notes * Nicole He MA - 08/23/2023 11:34 AM CDT Prior Authorization not needed for EPINEPHrine (EPIPEN) 0.3 MG/0.3ML injection . Informed by insurance that a PA is not needed on this medication. Pharmacy has been notified via fax. * Carolann Kim - 08/18/2023 9:24 PM CDT Images from the original note were not included. Updated portal with [place] Medicaid * Alicia Sotomayor - 08/09/2023 3:57 PM CDT Prior authorization has been initiated for . EPINEPHrine (EPIPEN) 0.3 MG/0.3ML injection documented in this encounter Plan of Treatment Upcoming Encounters Date Type Department Care Team (Late st Contact Info) Description 01/21/2024 11:00 AM CDT Appointment [facility] [address] Aashish Sosa MD [address] [place] [address] documented as of this encounter Visit Diagnoses Not on filedocumented in this encounter Care Teams Bark Tanner Relationship Specialty Start Date End Date Aashish Sosa MD [address] [place] [address] PCP - General Family Practice 09/30/20 documented as of this encounter
--- OUTSIDE RECORDS SUMMARY | 2023-11-27 12:40 | XMS_ITS | Encounter Summary ---
Author Organization [employer] Address [address] [address] Care Team Providers Care Naval Gunfire Spotter Name Role Phone Aashish Sosa MD Primary Care Provider [phone] Encounter Details Date Type Department Care Team (Late Contact Info) Description 10/29/2023 12:10 PM CDT Lab Visit [facility] 300 [facility] [place]re Perez [place] [address] Iron deficiency anemia due to chronic blood loss; Type 2 diabetes mellitus with obesity (HRC); Thrombocytopenia (HRC) Social History Tobacco Use Types Packs/Day Years [...] Encounters Date Type Department Care Team (Late Contact Info) Description 01/21/2024 11:00 AM CDT Appointment [facility] [address] [place] [address] Aashish Sosa MD 300 [place] [address] documented as of this encounter Procedures Procedure Name Priority Date/Time Associated Diagnosis Comments CBC AND DIFFERENTIAL PANEL Routine 10/29/2023 12:18 PM CDT Iron deficiency anemia due to chronic blood loss Type 2 diabetes mellitus with obesity (HRC) Thrombocytopenia (HRC) COMPLETE BLOOD COUNT-W/DIFF Routine 10/29/2023 12:18 PM [...] diabetes mellitus with obesity (HRC) Thrombocytopenia (HRC) documented in this encounter Results * (ABNORMAL) Complete Blood Count-W/Diff (10/29/2023 12:18 PM CDT) [facility] WBC 11.3(H) 3.5 - 10.5 x10(9)/L 10/29/2023 12:26 PM CDT [facility] RBC 4.91 3.90 - 5.03 x10(12)/L 10/29/2023 12:26 PM CDT [facility] Hemoglobin 13.0 12.0 - 15.5 g/dL 10/29/2023 12:26 PM CDT [facility] HCT 42.6 34.9 - 44.5 % 10/29/2023 12:26 PM [facility] MCV 86.8 80.0 - 100.0 fL 10/29/2023 12:26 PM [facility] MCH 26.5(L) 27.6 - 33.3 pg 10/29/2023 12:26 PM [facility] MCHC 30.5(L) 31.5 - 35.2 g/dL 10/29/2023 12:26 PM [facility] RDW 15.7(H) 11.9 - 15.5 % 10/29/2023 12:26 PM [facility] Platelets 179 150 - 450 x10(9)/L 10/29/2023 12:26 PM [facility] Automated NRBC 0 <=0 /100 WBC 10/29/2023 12:26 PM [facility] Neutrophil Absolute 6.6 1.7 - 7.0 10(9)/L 10/29/2023 12:26 PM [facility] Lymphocyte Absolute 3.3 1.0 - 4.8 10(9)/L 10/29/2023 12:26 PM [facility] Monocyte Absolute 0.7 0.2 - 0.9 10(9)/L 10/29/2023 12:26 PM [facility] Eosinophil Absolute 0.6(H) 0.0 - 0.5 10(9)/L 10/29/2023 12:26 PM [facility] Basophil Absolute 0.1 0.0 - 0.3 10(9)/L 10/29/2023 12:26 PM [facility] Immature Granulocyte % 0.4 0.0 - 0.5 % 10/29/2023 12:26 PM [facility] Blood Venipuncture / Unknown 10/29/2023 12:18 PM CDT 10/29/2023 12:19 PM T Aashish Sosa MD LAB_[address] [id number], [facility] * (ABNORMAL) Hgb A1C (10/29/2023 12:18 PM CDT) [facility] Hemoglobin A1C 6.7(H) <=5.6 % 10/29/2023 9:59 PM CDT [facility] Estimated Average Glucose (Calc) 146 < 117 mg/dL 10/29/2023 9:59 PM CDT [facility] Comment:Estimated average gl ucose (eAG) converts A1c into glucose units (mg/dL) and estimates average glucose over the past approximately 3 months. The eAG reference interval (<117 mg/dL) corresponds to an A1c of <5.7%. Blood Venipuncture / Unknown 10/29/2023 12:18 PM CDT 10/29/2023 12:19 PM CDT Narrative [facility] - 10/29/2023 9:59 PM CDT For patients not previously diagnosed with diabetes: 5.7-6.4%: Increased risk for diabetes 6.5% and greater: Diagnostic for diabetes For patients diagnosed with diabetes: <8.0%: Goal of therapy for ages 18-75 Clinicians may recommend a higher or lower goal for specific individuals. Aashish Sosa MD LAB_1 [facility] [address] * Ferritin (10/29/2023 12:18 PM CDT) [facility] Ferritin 10 9 - 204 ng/mL 10/29/2023 5:41 PM CDT [facility] Blood Venipuncture / Unknown 10/29/2023 12:18 PM CDT 10/29/2023 12:19 PM CDT Aashish Sosa MD LAB_1 [facility] [address] * TSH (10/29/2023 12:18 PM CDT) TSH, Sensitive 0.76 0.30 - 4.50 uIU/mL 10/29/2023 5:41 PM CDT [facility] Blood Venipuncture / Unknown 10/29/2023 12:18 PM CDT 10/29/2023 12:19 PM CDT Aashish Sosa MD LAB_1 Performing Organization Address [facility] Phone Number [facility] [address] * Lipase (10/29/2023 12:18 PM CDT) Pathologist [facility] Lipase 27 <=60 U/L 10/29/2023 5:37 PM CDT [facility] Blood Venipuncture / Unknown 10/29/2023 12:18 PM CDT 10/29/2023 12:19 PM CDT Aashish Sosa MD LAB_1 Performing Organization Address [facility] Phone Number [facility] [address] * Comp Metabolic Panel (10/29/2023 12:18 PM CDT) Pathologist [facility] Sodium 140 136 - 145 mmol/L 10/29/2023 5:37 PM CDT [facility] Potassium 4.2 3.5 - 5.1 mmol/L 10/29/2023 5:37 PM CDT [facility] Chloride 102 98 - 109 mmol/L 10/29/2023 5:37 PM CDT [facility] CO2 29 20 - 29 mmol/L 10/29/2023 5:37 PM CDT [facility] Anion Gap 9 6 - 16 mmol/L 10/29/2023 5:37 PM CDT [facility] Calcium 9.5 8.4 - 10.4 mg/dL 10/29/2023 5:37 PM CDT [facility] BUN 10 7 - 26 mg/dL 10/29/2023 5:37 PM CDT [facility] Creatinine 0.75 0.55 - 1.02 mg/dL 10/29/2023 5:37 PM CDT [facility] Alkaline Phosphatase 86 40 - 150 U/L 10/29/2023 5:37 PM CDT [facility] AST (SGOT) 21 10 - 40 U/L 10/29/2023 5:37 PM CDT [facility] ALT (SGPT) 14 <=55 U/L 10/29/2023 5:37 PM CDT [facility] Bilirubin, Total 0.2 0.2 - 1.2 mg/dL 10/29/2023 5:37 PM CDT [facility] Protein, Total 7.2 6.4 - 8.3 g/dL 10/29/2023 5:37 PM CDT [facility] Albumin 3.7 3.5 - 5.0 g/dL 10/29/2023 5:37 PM CDT [facility] Glucose 94 70 - 100 mg/dL 10/29/2023 5:37 PM CDT [facility] Comment:The given reference range is for the fasting state. Non-fasting reference range for glucose is 70 - 180 mg/dL. GFR, Estimated >60 >60 mL/min/1.7 3m2 10/29/2023 5:37 PM CDT [facility] Hours Fasting 0.0 8 - 12 Hours 10/29/2023 5:37 PM CDT [facility] Blood Venipuncture / Unknown 10/29/2023 12:18 PM CDT 10/29/2023 12:19 PM CDT Aashish Sosa MD LAB_1 Performing Organization Address City/State/[facility] Co de Phone Number [facility] [address] documented in this encounter Visit Diagnoses Diagnosis Iron deficiency anemia due to chronic blood loss Iron deficiency anemia secondary to blood loss (chronic) Type 2 diabetes mellitus with obesity (HRC) Thrombocytopenia (HRC) Thrombocytopenia, unspecified documented in this encounter Care Teams Naval Gunfire Spotter Relationship Specialty Start Date End Date Aashish Sosa MD [address] [place] [address] PCP - General Family Practice 09/30/20 documented as of this encounter
--- OUTSIDE RECORDS SUMMARY | 2023-11-27 12:40 | XMS_ITS | Encounter Summary ---
Author Organization [employer] Address [address] [place] [address] Care Team Providers Care Hot Patcher Name Role Phone Aashish Sosa MD Primary Care Provider [phone] Reason for Visit * Reason Onset Date Comments Medication Request 08/26/2023 Encounter Details Date Type Department Care Team (Late st Contact Info) Description 08/26/2023 Refill [facility] Medicine 300 [facility] [place] [phone] Aashish Sosa MD [address] [place] [phone] Medication Request Social History Tobacco Use Types Packs/Day [...] as of this encounter Nursing Notes * Bria Kendrick RN - 08/28/2023 2:55 PM CDT Clinic RN Note Spoke with pt. She states she started PT/OT and it has been helping a lot. She started the Prednisone but she is still having SOB. She is having someone who lives in her building drive her to the ER tonight or tomorrow so she can get a CT scan done and address this issue. Pt lives at [facility]. She has been without assistance from a COLD SAW OPERATOR for 5 weeks which has increased her pain. This is another reason she is going to go to ER. She has been working with [facility]. She was approved to have someone come in once a week to helpher with cleaning her apartment and taking out the trash. She states their are no spike maker available [facility], but she found a company that will send someone to help give her a shower once a week. Pt states transportation is slim in [facility], there is a [employer] company that charges $10/ride. She ishoping to get these rides covered through [facility] [employer]. Pt feels like things are getting better and has no further questions/concerns for screenplay writer. * Ramya Vogt RN - 08/26/2023 9:18 AM CDT Clinician: Review order(s) and sign as appropriate, Route to [facility], Patient is expecting a call back from [facility], and Close encounter Patient/care management specialist request: referral Specific Request: PT, aide referral, medication refills Spoke to patient who is calling to provide a couple updates to PCP and to request refills of 2 medications. Patient was prescribed Prednisone 10 tablets in June which she states did improve symptoms. Since moving to her new independent living facility in [place], her symptoms have returned. She has bought a humidifier which is not helping improve symptoms. She is requesting a refill of prednisone to cover her until she can get an appointment with the [facility] locally. She is also having increased pain and back spasms and requesting a refill of this medication. When she moved, she was supposed to get an aide for 20 hours a week. She has not had an aide or assistance for 5 weeks now. States she has been having to do everything on her own. Pain level has been high which she is usingher pain medication to help relieve but is needing more of her robaxin due to increased back spasms. She also has not had PT in 5 weeks. She is requesting to get a PT referral which needs to be sent to [facility]. There is also no coat agent waiver services available. Unable to get to [facility] due to this. [facility] for aide for now. Patient will also work on finding other possible aide services and will call the clinic back if she is able to find any. Future Appointments Provider Department Center 10/29/2023 11:00 AM Aashish Sosa MD [facility] documented in this encounter Plan of Treatment Upcoming Encounters Date Type Department Care Team (Late st Contact Info) Description 01/21/2024 11:00 AM CDT Appointment [facility] 300 [facility] [place] [address] Aashish Sosa MD [address] [place] [address] documented as of this encounter Visit Diagnoses Diagnosis Other chronic sinusitis documented in this encounter Care Teams Hot Patcher Relationship Specialty Start Date End Date Aashish Sosa MD [address] [place] [address] [place] [address] PCP - General Family Practice 09/30/20 documented as of this encounter
--- OUTSIDE RECORDS SUMMARY | 2023-11-27 12:40 | XMS_ITS | Encounter Summary ---
Author Organization [employer] Address [address], [place] [address] Care Team Providers Care Screener And Blender Operator Name Role Phone Aashish Sosa MD Primary Care Provider [phone] Reason for Visit * Reason Comments ERRONEOUS ENTRY Encounter Details Date Type Department Care Team (Late Contact Info) Description 08/02/[address] [place] [address] Aashish Soas MD [address] [place] [address] [place] [address] ERRONEOUS ENTRY Social History Tobacco Use Types Packs/Day Years [...] as of this encounter Nursing Notes * Kristin Levi - 08/02/2023 1:57 PM CST error OR NEWSPAPER documented in this encounter Plan of Treatment Upcoming Encounters Date Type Department Care Team (Late Contact Info) Description 01/21/2024 11:00 AM CDT Appointment [facility] 300 [facility] [place] [phone] Aashish Sosa MD [address] [place] [address] documented as of this encounter Visit Diagnoses Not on filedocumented in this encounter Care Teams Screener And Blender Operator Relationship Specialty Start Date End Date Aashish Sosa MD [address] [place] [address] PCP - General Family Practice 09/30/20 documented as of this encounter
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
--- OUTSIDE RECORDS SUMMARY | 2023-11-27 12:40 | XMS_ITS | Encounter Summary ---
Author Organization [email or web address] Address [address] [place] [address] Care Team Providers Care Remote Computer Terminal Operator Name Role Phone Aashish Sosa MD Primary Care Provider [phone] Reason for Visit * Reason Comments Refill Pyridoxine HCl (RUDDY MIN B-6) 100 MG tablet [Pharmacy Med Name: VITAMIN B- 6 100 MG TABS 100 Tablet] Encounter Details Date Type Department Care Team (Late st Contact Info) Description 10/04/2023 Refill [facility] [address] [facility] [place] [address] Aashihs Sosa MD [address] [place] [phone] Refill (Pyridoxine HCl (VITAMIN B-6) 100 MG tablet [Pharmacy Med Name: VITAMIN B-6 100 MG TABS 100 Tablet]) Social History Tobacco Use Types Packs/Day Years [...] as of this encounter Nursing Notes * Vincent Zapata [employer] - 10/04/2023 2:53 PM CDT Pyridoxine HCl (VITAMIN B-6) 100 MG tablet [Pharmacy Med Name: VITAMIN B-6 100 MG TABS 100 Tablet] -> The medication cannot be found in the patient's medication history. -> Medication cannot be delegated. Last qualifying visit: 07/16/2023 (with AASHISH SOSA) Next scheduled visit: 10/08/2023 (with AASHISH SOSA) [employer] Embedded Refills, Reference: [id number], 10/04/2023 2:53:46 PM CDT, Pool: [facility] - Primary Care [[id number]] ([id number]) documented in this encounter Plan of Treatment Upcoming Encounters Date Type Department Care Team (Late st Contact Info) Description 01/21/2024 11:00 AM CDT Appointment [facility] Medicine [address] [place] [address] [place] [phone] Aashish Sosa MD [address] [place] [address] [place] [address] documented as of this encounter Visit Diagnoses Not on filedocumented in this encounter Care Teams Remote Computer Terminal Operator Relationship Specialty Start Date End Date Aashish Sosa MD [address] [place] [place], [place] [address] PCP - General Family Practice 09/30/20 documented as of this encounter
--- OUTSIDE RECORDS SUMMARY | 2023-11-27 12:40 | XMS_ITS | Encounter Summary ---
Author Organization [employer] Address [address], [place] [address] Care Team Providers Care Nuclear Instructor Name Role Phone Aashish Sosa MD Primary Care Provider [phone] Reason for Visit * Reason Comments Pharmacy Encounter Details Date Type Department Care Team (Late st Contact Info) Description 09/06/2023 Telephone [facility] 300 [facility] [place] [phone] Aashish Sosa MD [address] [facility] [place] [phone] Pharmacy Social History Tobacco Use Types Packs/Day [...] Nursing Notes * Nicole He MA - 09/19/2023 11:25 AM CDT Need Assistance Answering Questions for Oxycodone-Acetaminophen 5-325 MG tablet I am unable to answer all the necessary prior authorization questions. The [facility] Tool for the Assessment and Management of Persistent Pain form is REQUIRED when requesting prior authorization for most long-acting opioids. Will the required information be provided? The following link is the form that will need completion for the prior authorization. Once completeplease follow the below instructions to complete PA and fax the form to [phone] [email or web address] Clinicians, please follow next steps: Click ???Answer Questions?? button, found on toolbar. Answer any questions with a red (!) warning symbol. Click ???Send to Payer?? button when complete. * Cassi Woowdard RN - 09/06/2023 3:40 PM CDT Pharmacy calls back to advise prescription authorization has been approved. * Alyse Orta - 09/06/2023 3:30 PM CDT PA initiated electronically. Waiting for payer response. * Cassi Woodward RN - 09/06/2023 2:58 PM CDT Routing to for assistance. Triage nurse spoke with Itzel at [facility] pharmacy. She attempted to enter code noted below, this did not work. Advised per Chronic pain syndrome on problem list, offered code G89.4. Thisworks. However, Itzel notes a second hard stop per insurance: Missing place of service code. Invalid place of service with this payer for service provider. Concern is that PCP may be out of geographic range to prescribe this medication to patient going forward. No prior authorization is required at this time. Pharmacy cannot dispense medication for mendoza out of pocket until a PA denial is in place. * Aashish Sosa MD - 09/06/2023 2:45 PM CDT Please call her pharmacy and let the pharmacy know that the diagnosis associated with the Percocet is chronic pain syndrome G84.4. Medications already been filled. Thank you. WK * Denae Zavala, RN - 09/06/2023 2:06 PM CDT Clinician: Review and advise Patient/healthcare insurance sales agent request: Medication question Specific Request: Pharmacy requesting diagnosis code for oxyCODONE-acetaminophen (PERCOCET) * Piyush Carreno - 09/06/2023 1:00 PM CDT Medications - Pharmacy Calls Is your question or concern about a Prior Authorization? No. What is the question or concern? Needing diagnosis codes What is the name and dose of the medication? oxyCODONE-acetaminophen (PERCOCET) 5-325 MG tablet Who prescribed it? Aashish Sosa MD Is it okay to leave a detailed message on your voicemail? Yes Is there anything else I can help you with today? documented in this encounter Plan of Treatment Upcoming Encounters Date Type Department Care Team (Late st Contact Info) Description 01/21/2024 11:00 AM CDT Appointment [facility] 300 [facility] [place] [address] Aashish Sosa MD [address] [place] [address] documented as of this encounter Visit Diagnoses Not on filedocumented in this encounter Care Teams Nuclear Instructor Relationship Specialty Start Date End Date Aashish Sosa MD [address] [place] [address] PCP - General Family Practice 09/30/20 documented as of this encounter
--- OUTSIDE RECORDS SUMMARY | 2023-11-27 12:40 | XMS_ITS | Encounter Summary ---
Author Organization [employer] Address [address] [place] [address] Care Team Providers Care Records Associate Name Role Phone Aashish Sosa MD Primary Care Provider [phone] Reason for Visit * Reason Comments Refill oxyCODONE-acetaminop hen (PERCOCET) 5-325 MG tablet [Pharmacy Med Name: OXYCODONE-ACETAMIN 5-325MG 5-325 Tablet] Encounter Details Date Type Department Care Team (Late st Contact Info) Description 09/05/2023 Refill [facility] 300 [facility] [place], [place] [phone] Aashish Sosa MD [address] [facility] [place] [phone] Refill (oxyCODONE-acetaminophen (PERCOCET) 5-325 MG tablet [Pharmacy Med Name: OXYCODONE-ACETAMIN 5-325MG 5-325 Tablet]) Social History Tobacco Use Types Packs/Day [...] Nursing Notes * Vincent Zapata [employer] - 09/05/2023 9:14 AM CDT oxyCODONE-acetaminophen (PERCOCET) 5-325 MG tablet [Pharmacy Med Name: OXYCODONE-ACETAMIN 5-325MG 5-325 Tablet] Medication started: 09/27/2017 Last ordered by AASHISH SOSA: 08/09/2023 (27 days ago) QTY: 180, Refills: 0, Sig: vials* take1-2 tablets by mouth every 4-6 hours as needed (changed) -> Unable to determine if sig has changed, review required. -> Medication cannot be delegated. Last qualifying visit: 07/16/2023 (with AASHISH SOSA) Next scheduled visit: 10/08/2023 (with AASHISH SOSA) [facility] Refills, Reference: [id number], 09/05/2023 9:14:46 AM CDT, Solitario: [facility] Services - Primary Care [[id number]] ([id number]) * Vincent Zapata - 09/05/2023 9:14 AM CDT No [facility] documented in this encounter Plan of Treatment Upcoming Encounters Date Type Department Care Team (Late st Contact Info) Description 01/21/2024 11:00 AM CDT Appointment [address] [place] [address] Aashish Sosa MD [address] [employer] [place] [address] documented as of this encounter Visit Diagnoses Not on filedocumented in this encounter Care Teams Records Associate Relationship Specialty Start Date End Date Aashish Sosa MD [address] [place] [address] [place] [address] PCP - General Family Practice 09/30/20 documented as of this encounter
--- OUTSIDE RECORDS SUMMARY | 2023-11-27 12:40 | XMS_ITS | Encounter Summary ---
Author Organization [employer] Address [address] [place] [address] Care Team Providers Care Electromechanical Equipment Tester Name Role Phone Aashish Sosa MD Primary Care Provider [phone] Reason for Visit * Reason Comments Refill oxyCODONE-acetaminop hen (PERCOCET) 5-325 MG tablet [Pharmacy Med Name: OXYCODONE-ACETAMINOPHEN 5-3 5-325 Tablet] Encounter Details Date Type Department Care Team (Late st Contact Info) Description 10/01/2023 Refill [facility] Medicine [address] [place], [place] [phone] Aashish Sosa MD [address] [place] [id number] Refill (oxyCODONE-acetaminophen (PERCOCET) 5-325 MG tablet [Pharmacy Med Name: OXYCODONE-ACETAMINOPHEN 5-3 5-325 Tablet]) Social History Tobacco Use Types [...] as of this encounter Nursing Notes * Amna Bergeron RN - 10/01/2023 9:35 AM CDT Clinician: Review order(s) and sign as appropriate and Patient is expecting a call back from [facility] Patient/career and transition teacher request: New medication Specific Request: Pt requesting refill of Oxycodone-acetaminophen (percocet) 5-325. Pt reports that latest pharmacy deliver on Saturday10/04/23 is 2-4 PM and that it is critical that rx gets sent by then as she will be out on Saturday and pharmacy is closed on weekends. Pt reports that she last filled the rx on 09/05. Requesting early refill on 10/03 due to pharmacy being closed on weekends Further Assistance Needed on Refill from Clinician RN reviewed. Medication not listed on standing order. Last qualifying visit with PCP 07/16/23. Rx last written 09/05. Pt has future appointment scheduled 10/08/23 Requested Prescriptions Pending Prescriptions Disp Refills oxyCODONE-acetaminophen (PERCOCET) 5-325 MG tablet [Pharmacy Med Name: OXYCODONE-ACETAMINOPHEN 5-3 5-325 Tablet] 180 Tablet 0 Sig: TAKE 1-2 TABLETS BY MOUTH EVERY 4-6 HOURS NEEDED FOR PAIN. * Vincent Zapata [employer] - 10/01/2023 9:33 AM CDT oxyCODONE-acetaminophen (PERCOCET) 5-325 MG tablet [Pharmacy Med Name: OXYCODONE-ACETAMINOPHEN 5-3 5-325 Tablet] Medication started: 10/25/2017 Last ordered by AASHISH SOSA: 09/06/2023 (25 days ago) QTY: 180, Refills: 0, Sig: take 1-2 tablets by mouth every 4-6 hours as needed for pain. (unchanged) -> Medication cannot be delegated. Last qualifying visit: 07/16/2023 (with AASHISH SOSA) Next scheduled visit: 10/08/2023 (with AASHISH SOSA) [facility] Embedded Refills, Reference: [id number], 10/01/2023 9:33:30 AM CDT, Pool: ZAK Refill Centralized Services - Primary Care [[id number]] ([id number]) * Vincent Zapata - 10/01/2023 9:33 AM CDT No Careplan note found by [employer]. documented in this encounter Plan of Treatment Upcoming Encounters Date Type Department Care Team (Late st Contact Info) Description 01/21/2024 11:00 AM CDT Appointment [facility] 300 [facility] [place] [phone] Aashish Sosa MD [address] [place] [phone] documented as of this encounter Visit Diagnoses Not on filedocumented in this encounter Care Teams Electromechanical Equipment Tester Relationship Specialty Start Date End Date Aashish Sosa MD [address] [place] [phone] PCP - General Family Practice 09/30/20 documented as of this encounter
--- OUTSIDE RECORDS SUMMARY | 2023-11-27 12:40 | XMS_ITS | Encounter Summary ---
Author Organization [employer] Address [address] [place] [address] Care Team Providers Care Demonstrator Knitting Name Role Phone Aashish Sosa MD Primary Care Provider [phone] Reason for Visit * Reason Comments FYI Encounter Details Date Type Department Care Team (Late st Contact Info) Description 09/06/2023 Telephone [facility] 300 [facility] [place] [phone] Aashish Sosa MD [address] [facility] [place] [address] FYI Social History Tobacco Use Types Packs/Day Years [...] as of this encounter Nursing Notes * Cassi Woodward RN - 09/06/2023 3:41 PM CDT See other telephone encounter from today. Closing this encounter. * Darryl Motta - 09/06/2023 3:23 PM CDT Other Questions/Concerns/FYI Is this a symptom? No What is your question or concern? Claim is processed and pain. Have you recently been seen for this? No Is it okay to leave a detailed message on your voicemail? Yes Is there anything else I can help you with today? no documented in this encounter Plan of Treatment Upcoming Encounters Date Type Department Care Team (Late st Contact Info) Description 01/21/2024 11:00 AM CDT Appointment [facility] 300 [facility] [place] [address] Aashish Sosa MD [address] [place] [address] documented as of this encounter Visit Diagnoses Not on filedocumented in this encounter Care Teams Demonstrator Knitting Relationship Specialty Start Date End Date Aashish Sosa MD [address] [place] [address] [place] [address] PCP - General Family Practice 09/30/20 documented as of this encounter
--- OUTSIDE RECORDS SUMMARY | 2023-11-27 12:40 | XMS_ITS | Encounter Summary ---
Author Organization [facility] Address [address], [place] [address] Care Team Providers Care Loan Administrator Name Role Phone Aashish Sosa MD Primary Care Provider [phone] Encounter Details Date Type Department Care Team (Late st Contact Info) Description 08/20/2023 Notes/Orders [facility] [address] [facility] [place] [id number] Aashish Sosa MD [address] [facility] [place] [address] Right-sided low back pain with right-sided sciatica, unspecified chronicity (HRC) (Primary Dx); Radiculopathy of lumbosacral region; Chronic pain syndrome; Other specified polyneuropathies; Nontraumatic tear of left rotator cuff, unspecified tear extent Social History Tobacco Use Types Packs/Day Years [...] as of this encounter Progress Notes * Krystin Kaplan - 08/20/2023 11:59 PM CDT Home Health Care or Hospice Certification Covering dates of service from 08/20/2023 to 10/18/2023. Date of Video or Office Visit: 07/16/2023 Frontline Action: Pend Home Health Certification (G0180) order* and associate to diagnosis listed on [facility] form. *If this is for Hospice, do not pend an order. Route encounter to clinician and place paper form in inbox. Clinician Action: Review patient status, careplan, and Home Health Certification and Plan of Care Form ([facility] 485). Locate and sign paper form and place in outbox (for scanning). Sign pended order in Epic. (If hospice certification, there will not be an order to sign) Leave encounter open. * Aashish Sosa MD - 08/20/2023 11:59 PM CDT Medication recertification form signed. WK. Thank you. * Suzi Monsivais CNA - 08/20/2023 11:59 PM CDT Aashish Sosa MD reviewed patient status, careplan, and completed the Home Health Certification and Plan of Care Form ([facility] 485). Form faxed to [phone] on 08/27/2023. A copy of the form has also been scanned into this patient's record. Suzi Monsivais CNA documented in this encounter Plan of Treatment Upcoming Encounters Date Type Department Care Team (Late st Contact Info) Description 01/21/2024 11:00 AM CDT Appointment [facility] [address] [place] [address] Aashish Sosa MD [address] [place] [address] [place] [address] documented as of this encounter Visit Diagnoses Diagnosis Right-sided low back pain with right-sided sciatica, unspecified chronicity (HRC)- Primary Radiculopathy of lumbosacral region Thoracic or lumbosacral neuritis or radiculitis, unspecified Chronic pain syndrome Other specified polyneuropathies Nontraumatic tear of left rotator cuff, unspecified tear extent documented in this encounter Care Teams Loan Administrator Relationship Specialty Start Date End Date Aashish Sosa MD [address] [place] [address] PCP - General Family Practice 09/30/20 documented as of this encounter
--- OUTSIDE RECORDS SUMMARY | 2023-11-27 12:40 | XMS_ITS | Encounter Summary ---
Author Organization [facility] Address [address] [place] [address] Care Team Providers Care Model And Pattern Supervisor Name Role Phone Aashish Sosa MD Primary Care Provider [phone] Reason for Referral * Therapies (Routine) - New Request Specialty Diagnoses / Procedures Referred By Erick kennedy Referred To Contact Diagnoses Chronic pain syndrome Unsteadiness Aashish Sosa MD [address] [place] [address] [place] [address] Referral ID Status Reason Start Date Expiration Date V isits Requested Visits Authorized [id number] New Request 08/21/2023 08/19/2024 1 1 Scheduling Instructions Your clinician has recommended an appointment with Physical Therapy [facility] Rehabilitation Services. You can quickly make your appointment online at [email or web address]. You can also call [phone] for help scheduling your appointment. We suggest you call your health insurance company about your coverage and benefits for this appointment. Question Answer Appointment Urgency? Non-Urgent Requested Services Evaluate and treat May use saline for irrigation or cleansing Yes dexamethasone use Yes May check glucose per protocol (see policy link below) or if patient has symptoms? Yes * Therapies (Routine) - New Request Specialty Diagnoses / Procedures Referred By Erick kennedy Referred To Contact Occupational Therapy Diagnoses Chronic pain syndrome Unsteadiness Aashish Sosa MD [address] [place] [address] Occup[facility] Therapy [address] [place] [address]. [place] [address] Referral ID Status Reason Start Date Expiration Date V isits Requested Visits Authorized [id number] New Request 08/21/2023 08/19/2024 1 1 Scheduling Instructions Your clinician has recommended an appointment with Rehabilitation Services. You can quickly make your appointment online at [email or web address]. You can also call [phone] for help scheduling your appointment. We suggest you call your health insurance company about your coverage and benefits for this appointment. Question Answer Appointment Urgency? Non-Urgent Requested Services Evaluate and treat May use saline for irrigation or cleansing Yes dexamethasone use Yes May check glucose per protocol (see policy link below) or if patient has symptoms? Yes Reason for Visit * Reason Comments Orders Needed Encounter Details Date Type Department Care Team (Late Contact Info) Description 08/20/2023 Telephone [facility] [address] [place], [place] [phone] Aashish Sosa MD [address] [place] [address] Orders Needed Social History Tobacco Use Types Packs/Day Years [...] Nursing Notes * Suzi Monsivais CNA - 08/21/2023 3:17 PM CDT Order faxed to [facility] * Aashish Sosa MD - 08/21/2023 2:32 PM CDT PT and OT order signed epic. Thank you. WK. * Suzi Monsivais CNA - 08/20/2023 2:36 PM CDT Clinician: Route to [facility] Patient/healthcare consulting manager request: New Order: pt and ot Specific Request: [email or web address] requesting outpatient pt and ot orders. Orders pended * Binh Rosario - 08/20/2023 2:04 PM CDT Orders - Specialty/Other What order is being requested? outpatient OT, PT Why is this order being requested? Chronic pain and unsteadiness When were you seen last for this concern? By whom? Unknown Additional comments (related to the above concern): [facility] requesting outpatient PT, OT orders faxed to [facility] fax# , PH# [phone] Is it okay to leave a detailed message on your voicemail? Yes Is there anything else I can help you with today? documented in this encounter Plan of Treatment Upcoming Encounters Date Type Department Care Team (Late st Contact Info) Description 01/21/2024 11:00 AM CDT Appointment [facility] [address] [place] [address] [place] [address] Aashish Sosa MD [address] [place] [address] [place] [address] Scheduled Referrals Name Type Priority Associated Diagnoses Orde r Schedule Occupational Therapy Referral Routine Chronic pain syndrome Unsteadiness Ordered: 08/21/2023 Physical Therapy Referral Routine Chronic pain syndrome Unsteadiness Ordered: 08/21/2023 documented as of this encounter Visit Diagnoses Diagnosis Chronic pain syndrome- Primary Unsteadiness Abnormality of gait documented in this encounter Care Teams Model And Pattern Supervisor Relationship Specialty Start Date End Date Aashish Sosa MD [address] [place], [place] [address] PCP - General Family Practice 09/30/20 documented as of this encounter
--- OUTSIDE RECORDS SUMMARY | 2023-11-27 12:40 | XMS_ITS | Encounter Summary ---
Author Organization [facility] Address [address], [place] [address] Care Team Providers Care Custodian Supervisor Name Role Phone Aashish Sosa MD Primary Care Provider [phone] Reason for Visit * Reason Comments Refill gabapentin (NEURONTI N) 300 MG capsule [Pharmacy Med Name: GABAPENTIN 300 MG CAPS 300 Capsule] Encounter Details Date Type Department Care Team (Late st Contact Info) Description 11/02/2023 Refill [facility] 300 [facility] [address] Aashish Sosa MD 300 [facility] [place] [phone] Refill (gabapentin (NEURONTIN) 300 MG capsule [Pharmacy Med Name: GABAPENTIN 300 MG CAPS 300 Capsule]) Social History Tobacco Use Types Packs/Day Years [...] Nursing Notes * Vincent Zapata [facility] - 11/02/2023 11:59 AM CDT gabapentin (NEURONTIN) 300 MG capsule [Pharmacy Med Name: GABAPENTIN 300 MG CAPS 300 Capsule] Medication started: 11/15/2017 Last ordered by AASHISH SOSA: 08/09/2023 (85 days ago) QTY: 810, Refills: 0, Sig: take 3 capsules (900mg) by mouth three times daily (unchanged) -> The requested strength (300 mg oral capsule) was last ordered on 08/09/2023. The patient is taking 400 mg oral capsule as of 08/09/2023. -> The medication is active at more than one strength (300 mg on 08/09/2023, 400 mg on 08/09/2023). -> Medication cannot be delegated. Last qualifying visit: 10/29/2023 (with AASHISH SOSA) Next scheduled visit: None [facility] Embedded Refills, Reference: [id number], 11/02/2023 11:58:59 AM CDT, Solitario: ZAK Refill [facility] Services - Primary Care [23405] ([id number]) documented in this encounter Plan of Treatment Upcoming Encounters Date Type Department Care Team (Late st Contact Info) Description 01/21/2024 11:00 AM CDT Appointment [address] [place] [address] Aashish Sosa MD [address] [place] [address] [place] [address] documented as of this encounter Visit Diagnoses Not on filedocumented in this encounter Care Teams Custodian Supervisor Relationship Specialty Start Date End Date Aashish Sosa MD [address] [place] [address] PCP - General Family Practice 09/30/20 documented as of this encounter
--- OUTSIDE RECORDS SUMMARY | 2023-11-27 12:40 | XMS_ITS | Encounter Summary ---
Author Organization [employer] Address [address] [address] Care Team Providers Care Plant Mechanic Name Role Phone Aashish Sosa MD Primary Care Provider [phone] Encounter Details Date Type Department Care Team (Late st Contact Info) Description 09/20/2023 Notes/Orders [facility] [place] [phone] Aashish Sosa MD [address] [place], [place] [phone] Chronic pain syndrome (Primary Dx); Gastro-esophageal reflux disease without esophagitis; Dysphagia, unspecified type; Opioid dependence, uncomplicated (HRC) Social History Tobacco Use Types Packs/Day [...] as of this encounter Progress Notes * Manjula Kate - 09/20/2023 11:59 PM CDT Home Health Care or Hospice Certification Covering dates of service from 09/20/23 to 11/18/23. Date of Video or Office Visit: 07/16/23 Frontline Action: Pend Home Health Certification (G0180) order* and associate to diagnosis listed on [facility] form. *If this is for Hospice, do not pend an order. Route encounter to clinician and place paper form in inbox. Clinician Action: Review patient status, careplan, and Home Health Certification and Plan of Care Form ([facility] 485). Locate and sign paper form and place in outbox (for scanning). Sign pended order in Epic. (If hospice certification, there will not be an order to sign) Leave encounter open. * Aashish Sosa MD - 09/20/2023 11:59 PM CDT Medicare certification sign. WK. Thank you. * Alyse Orta - 09/20/2023 11:59 PM CDT Aashish Sosa MD reviewed patient status, careplan, and completed the Home Health Certification and Plan of Care Form ([facility] 485). Form faxed to [facility] on 10/22/2023. A copy of the form will be scanned into this patient's record. Alyse Orta documented in this encounter Plan of Treatment Upcoming Encounters Date Type Department Care Team (Late st Contact Info) Description 01/21/2024 11:00 AM CDT Appointment [facility] [address] [facility] [place] [address] Aashish Sosa MD [address] [place] [address] [place] [address] documented as of this encounter Visit Diagnoses Diagnosis Chronic pain syndrome- Primary Gastro-esophageal reflux disease without esophagitis Esophageal reflux Dysphagia, unspecified type Opioid dependence, uncomplicated (HRC) documented in this encounter Care Teams Plant Mechanic Relationship Specialty Start Date End Date Aashish Sosa MD NPI: [id number] [place] [address] [place] [address] PCP - General Family Practice 09/30/20 documented as of this encounter
--- NOTE | 2023-11-27 13:00 | CRLHL7_ITS ---
For Patients: As a result of the Century Cures Act, medical imaging exams and procedure reports are released immediately into your electronic medical record. You may view this report before your referring provider. If you have questions, please contact your health care provider. Indication: Chronic sinusitis. Technique: Noncontrast axial CT of the paranasal sinuses with coronal reformats are provided. No comparisons. Findings: 5 millimeter circumferential mucosal thickening within the right maxillary sinus. 2 millimeter mucosal thickening within floor the left maxillary sinus. Minor mucosal thickening in scattered ethmoid air cells. The remainder of the visualized paranasal sinuses are clear. The ostiomeatal complexes are patent bilaterally. Incidental right-sided kyrie bullosa. The visualized intraorbital contents appear within normal limits. Impression: 1. Moderate right and mild left maxillary sinus mucosal thickening with minor mucosal thickening in scattered ethmoid air cells. Please note that all CT scans at this facility use dose modulation, iterative reconstruction, and/or weight-based dosing when appropriate to reduce radiation dose to as low as reasonably achievable. Dictated by Edilberto Robertson MD @ 11/28/2023 12:48:20 PM (Electronically Signed)
[2023-11-27 13:22] LABS: Creatinine* 0.7 mg/dL (0.5-1.5); Estimated Glomerular Filt Rate 98 ml/min
--- NOTE | 2023-11-27 13:30 | CRLHL7_ITS ---
For Patients: As a result of the Century Cures Act, medical imaging exams and procedure reports are released immediately into your electronic medical record. You may view this report before your referring provider. If you have questions, please contact your health care provider. Indication: Chronic abd pain, abnormal weight loss Technique: CT Abdomen/Pelvis w/ 84cc [id number] Please note that all CT scans at this facility use dose modulation, iterative reconstruction, and/or weight-based dosing when appropriate to reduce radiation dose to as low as reasonably achievable. Comparison: 02/08/2023 Findings: Mild atelectasis noted in both lung bases. No pleural effusion. No intrahepatic mass. Gallbladder is normal. Normal tapering of the common bile duct. Pancreas is unremarkable. Normal spleen. Adrenal glands are normal. Normal kidneys. Atherosclerotic changes. No aneurysm. Bladder normal. No pelvic mass. Mild colonic diverticulosis. No diverticulitis. No free air, free fluid or abscess. Normal appendix. Chronic changes to the left posterior iliac bone and chronic postop changes to the left posterolateral flank soft tissues. Degenerative disc disease L3-4 and L4-5. Rightward curvature of the lumbar spine. A few scattered subcentimeter mesenteric lymph nodes are present. Impression: No bowel obstruction. Mild colonic diverticulosis. Postop changes to the left abdominal wall laterally. Please note that all CT scans at this facility use dose modulation, iterative reconstruction, and/or weight-based dosing when appropriate to reduce radiation dose to as low as reasonably achievable. Dictated by Gerald Perry MD @ 11/29/2023 1:02:03 PM (Electronically Signed)
== END 2023-11-27 12:32 | disposition home or self-care (01) ==
PROVIDERS: PCP Internal Medicine; Visit Provider Family Medicine
DX: J32.9 Chronic sinusitis, unspecified (principal); J32.0 Chronic maxillary sinusitis; R10.9 Unspecified abdominal pain; K57.30 Diverticulosis of large intestine without perforation or abscess without bleeding; R63.4 Abnormal weight loss; G89.29 Other chronic pain
CPT/HCPCS: 36415; 70486; 74177; 82565; Q9967

== ENCOUNTER 2024-02-03 14:37 | Outpatient (CLI) | payer MEDICAID, SELFPAY ==
--- OUTSIDE RECORDS SUMMARY | 2024-02-03 14:41 | XMS_ITS | Encounter Summary ---
Author Organization [facility] Address [address] [place] [address] Care Team Providers Care Color Maker Name Role Phone Aashish Sosa MD Primary Care Provider Reason for Referral * Consult/Transfer Care (Routine) - New Request Specialty Diagnoses / Procedures Referred By Erick kennedy Referred To Contact Diagnoses Interstitial cystitis Aashish Sosa MD [address] [place] [address] [place] [address] Referral ID Status Reason Start Date Expiration Date V isits Requested Visits Authorized [id number] New Request 01/21/2024 04/21/2025 1 1 Scheduling Instructions Your clinician has recommended an appointment with [facility]. You can quickly make your appointment online at Entitle/schedule. You can also call [phone] for help scheduling your appointment. We suggest you call your health insurance company about your coverage and benefits for this appointment. Question Answer Appointment Urgency? Non-Urgent Reason for visit? interstitial cystitis * Consult/Transfer Care (Routine) - New Request Specialty Diagnoses / Procedures Referred By Erick kennedy Referred To Contact Diagnoses Other chronic sinusitis Aashish Sosa MD [address] [place] [address] Referral ID Status Reason Start Date Expiration Date V isits Requested Visits Authorized [id number] New Request 01/21/2024 04/21/2025 1 1 Scheduling Instructions Your clinician has recommended an appointment with [facility] ([facility]) - Head & Neck [facility]. You may call [phone] for help scheduling your appointment. We suggest you call your health insurance company about your coverage and benefits for this appointment. Question Answer Appointment Urgency? Non-Urgent Reason for visit? chronic sinusitis * Procedure/Equipment (Routine) - New Request Specialty Diagnoses / Procedures Referred By Erick kennedy Referred To Contact Diagnoses Chronic bilateral low back pain with right-sided sciatica (HRC) Idiopathic peripheral neuropathy Disorder of rotator cuff of both shoulders Procedures Wheelchair - Manual Aashish Sosa MD [address] [place] [address] Referral ID Status Reason Start Date Expiration Date V isits Requested Visits Authorized [id number] New Request 01/21/2024 07/19/2024 1 1 Reason for Visit * Reason Comments Follow-up MEDICATION CHECK Encounter Details Date Type Department Care Team (Late st Contact Info) Description 01/21/2024 11:00 AM CDT Office Visit [facility] [address] [facility] [place] [id number] Aashish Sosa MD [address] [place] [phone] Dysuria (Primary Dx); Urinary frequency; Interstitial cystitis; Chronic bilateral low back pain with right-sided sciatica (HRC); Disorder of rotator cuff of both shoulders; Tinea corporis; Psoriasis; Other chronic sinusitis; Idiopathic peripheral neuropathy; Muscle cramp; Constipation, unspecified constipation type Social History Tobacco Use Types Packs/Day Years [...] Sign Reading Time Taken Comments Blood Pressure 151/61 01/21/2024 11:16 AM CDT Pulse 75 01/21/2024 11:16 AM CDT Temperature - - Respiratory Rate - - Oxygen Saturation - - Inhaled Oxygen Concentration - - Weight 80.3 kg (177 lb) 01/21/2024 11:16 AM CDT Height - - Body Mass Index 28.57 01/08/2023 2:38 PM CDT documented in this encounter Patient Instructions * Patient Instructions* Aashish Sosa MD - 01/21/2024 11:00 AM CDT Urinalysis today. Triamcinolone oint twice a day for up to one month for psoriasis. Ketoconazole cream twice a day for one month under breasts and on forehead. Wheelchair order. ENT consult. Urology consult. documented in this encounter Progress Notes * Aashish Sosa MD - 01/21/2024 11:00 AM CDT SUBJECTIVE: Chief Complaint Patient presents with Follow-up MEDICATION CHECK HPI: Comes in reporting chronic dysuria urinary frequency. She states that she has been told she has interstitial cystitis. She has not seen a urologist. Thinks she might have UTI now. She reports frequent urination and dysuria. No flank pain but she has a reports suprapubic pain which again is chronic. She had a recent CT scan of her abdomen pelvis did not show any abnormalities of the bladder or kidney. Chronic low back pain and chronic rotator cuff disease. She uses Percocet. She has been using this for many years. Use has been stable although she has wanted to increase the dose at times. No new symptoms. Rash under breasts. She gets recurrent fungal infection under her breast. She would like a refill of her ketoconazole cream. This is effective but it does recur. The cream as effective. She was psoriasis she has been diagnosed with she gets on her hands primarily sometimes on her trunk. Responds to triamcinolone. She has not seen a potter or ceramic artist for long time. Chronic sinusitis. She has recurrent he was congestion, recurrent sinusitis. She was going to see an ENT outside of our system but this was canceled. She would like to see ENT to determine if varus longer-term solution. Flonase usually not effective and she gets a few steroid burst orally every year. She knows this is not healthy weight to manage this. She would like to see ENT. Her idiopathic neuropathy peripheral is stable. Uses gabapentin.. She gets chronic muscle cramps. She uses baclofen. She also uses methocarbamol. Constipation. This has been chronic. She has it was from opioids. She uses senna. This is stable. Medications: Outpatient Medications Prior to Visit Medication [...] 1 Tablet (81 mg) by mouth daily. azelastine (ASTELIN) 0.1 % nasal solution Place 1 Pattison into both nostrils two times a day. azithromycin (ZITHROMAX) 250 MG tablet Take 1 [...] DROP IN BOTH EYES FOUR TIMES DAILY lidocaine (SALONPAS PAIN RELIEVING) 4 % patch Apply 1 Patch to skin daily. Leave on for up to 12 hours in a 24 hour period, then remove. loperamide (IMODIUM) 2 MG capsule Take 1 Capsule (2 mg) by mouth 4 times daily as needed for Diarrhea. metoprolol succinate (TOPROL XL) 25 MG 24 hour release tablet Take 1 Tablet (25 mg) by mouth daily. Multiple Vitamins-Minerals (SENTRY SENIOR) TABS Take 1 Tablet by mouth daily. nicotine (NICODERM CQ) 21 MG/24HR patch Apply 1 Patch to skin every 24 hours. Remove old patch prior to new patch application nystatin (MYCOSTATIN) 264569 UNIT/GM powder APPLY TO AFFECTED AREA TOPICALLY [...] both eyes every 24 hours as needed. predniSONE (DELTASONE) 10 MG tablet Take 1 Tablet (10 mg) by mouth daily. Pyridoxine HCl (VITAMIN B-6) 100 MG tablet TAKE 2 AND 1/2 TABLETS BY MOUTH ONCE DAILY. saline (OCEAN) 0.65 % nasal solution Place 2 Sprays into both nostrils every 2 hours as needed for Congestion. sucralfate (CARAFATE) 1 GM/10ML suspension Take 10 mL (1 g) by mouth 4 times a day. vitamin B-12 (AKA: CYANOCOBALAMIN) 1000 MCG tablet Take 1 Tablet (1,000 mcg) by mouth daily. [DISCONTINUED] ketoconazole (NIZORAL) 2 % shampoo Apply topically daily as needed [DISCONTINUED] levothyroxine (SYNTHROID) 112 MCG tablet Take 1 Tablet (112 mcg) by mouth daily. [DISCONTINUED] methocarbamol (ROBAXIN) 750 MG tablet Take 1 Tablet (750 mg) by mouth 4 times a day. [DISCONTINUED] oxyCODONE-acetaminophen (PERCOCET) 5-325 MG tablet TAKE 1-2 TABLETS BY MOUTH EVERY 4-6 HOURS NEEDED FOR PAIN. [DISCONTINUED] triamcinolone acetonide (KENALOG) 0.1 % ointment Apply topically two times a day. No facility-administered medications prior to visit. Adverse Drug Reactions: Allergies Allergen Reactions Clindamycin Hives and Rash Codeine Itching Doxycycline Other, see comments esophagitis Morphine Hives, Rash and Throat Irritation Penicillins Hives and Rash Sulfa Antibiotics Hives and Rash Erythromycin Base Rash Flexeril [Cyclobenzaprine] Mental reaction Meperidine Rash Propoxyphene Rash Social: Nonsmoker. Review of systems: Complete review of systems negative other than the present complaints. OBJECTIVE: Vital Signs: BP (!) 151/61 (BP Location: Left Arm, BP Cuff Size: Large) Pulse 75 Wt 177 lb (80.3 kg) BMI 28.57 kg/m?? General: Alert and oriented in no [...] No clubbing, cyanosis or edema. ASSESSMENT/PLAN: 1. Dysuria 2. Urinary frequency 3. Interstitial cystitis by history Assessment: Urinalysis today is unremarkable. Will obtain urology consultation. CT not show any evidence of malignancy. She has been a long-term smoker unless she has quit smoking. Plan: 1. Urology consultation 2. Follow up after consultation 3. Report any increase or change in symptoms. She was see me within 1 month. 4. Bilateral low back pain chronic 5. Rotator cuff disease 6. Osteoarthritis knees Assessment: PDMP checked and appropriate. Will continue present dose of Percocet. Continue home exercise program. Plan: As above. 7. Tinea corporis Assessment: She has evidence of erythematous rash under both breasts. No drainage. Consistent with tinea corporis/cruris. Plan: 1 ketoconazole cream b.i.d. for 1 month 2. Keep the areas dry. 3. Follow up in 1 month. 8. Psoriasis Assessment: My pictures she has shown me this is consistent with psoriasis Plan: 1. [place] use of moisturizers 2. Triamcinolone ointment applied b.i.d. for up to 1 month 3. Consider dermatologic consultation. 4. Avoid excessive use of topical steroids to avoid skin atrophy. 9. Chronic sinusitis Assessment plan: She gets recurrent sinus infections in his chronically congested. Will obtain ENT consultation within [facility]. 10. Muscle cramping chronic 11. Idiopathic peripheral neuropathy Assessment plan: Will continue present medications. BMP, CBC and magnesium today 12. Constipation related to opioid use Assessment plan: Refill Senokot. Appropriate use discussed. Maintain good hydration and fiber intake. Total time 45 minutes counseling time 30 minutes. This dictation was generated with voice recognition software and may contain typographical errors. documented in this encounter Plan of Treatment Upcoming Encounters Date Type Department Care Team (Late st Contact Info) Description 03/31/2024 11:00 AM LUMBER STACKER OPERATOR Appointment [facility] [address] [place] [address] [place] [address] Aashish Sosa MD [address] [place] [address] [place] [address] Scheduled Referrals Name Type Priority Associated Diagnoses Orde r Schedule Otolaryngology Consult Adult/Peds Referral Routine Other chronic sinusitis Ordered: 01/21/2024 Urology Consult-Adults Referral Routine Interstitial cystitis Ordered: 01/21/2024 documented as of this encounter Procedures Procedure Name Priority Date/Time Associated Diagnosis Comments URINALYSIS ROUTINE, MICRO/CULTURE IF POS Routine 01/21/2024 12:39 PM CDT Dysuria Urinary frequency documented in this encounter Results * Urinalysis Routine, Micro/Culture if Pos: Clean Catch (01/21/2024 12:39 PM CDT) Urine Culture Comment Urinalysis results do not meet criteria for urine culture reflex. 01/21/2024 12:45 PM [facility] Urine Color Yellow 01/21/2024 12:45 PM [facility] Urine Clarity Clear Clear 01/21/2024 12:45 PM [facility] Specific [place], Urine 1.010 1.005 - 1.030 01/21/2024 12:45 PM [facility] PH Urine 6.0 5.0 - 8.0 01/21/2024 12:45 PM [facility] Protein, Urine Qual (mg/dL) Negative Neg/Trace 01/21/2024 12:45 PM [facility] Glucose Urine Qual (mg/dL) Negative Negative 01/21/2024 12:45 PM [facility] Ketones, Urine (mg/dL) Negative Negative 01/21/2024 12:45 PM [facility] Urobilinogen, Urine (EU/dL) 0.2 <2.0 01/21/2024 12:45 PM [facility] Bilirubin Urine Negative Negative 01/21/2024 12:45 PM [facility] Blood, Urine Negative Neg/Trace 01/21/2024 12:45 PM [facility] Nitrite Urine Negative Negative 01/21/2024 12:45 PM [facility] Leukocyte Est. Negative Negative 01/21/2024 12:45 PM [facility] Urine Source Clean Catch 01/21/2024 12:45 PM [facility] Urine URINE SPECIMEN COLLECTION, CLEAN CATCH / Unknown Non-blood Collection / Unknown 01/21/2024 12:39 PM CDT 01/21/2024 12:40 PM CDT Aashish Sosa MD LAB_1 [facility] [address] [place] [address], [facility] * Basic Metabolic Panel (01/21/2024 12:27 PM CDT) Sodium 138 136 - 145 mmol/L 01/21/2024 5:04 PM CDT [facility] Potassium 3.9 3.5 - 5.1 mmol/L 01/21/2024 5:04 PM CDT [facility] Chloride 103 98 - 109 mmol/L 01/21/2024 5:04 PM CDT [facility] CO2 27 20 - 29 mmol/L 01/21/2024 5:04 PM CDT [facility] Anion Gap 8 6 - 16 mmol/L 01/21/2024 5:04 PM CDT [facility] Calcium 9.8 8.4 - 10.4 mg/dL 01/21/2024 5:04 PM CDT [facility] BUN 9 7 - 26 mg/dL 01/21/2024 5:04 PM CDT [facility] Creatinine 0.73 0.55 - 1.02 mg/dL 01/21/2024 5:04 PM CDT [facility] Glucose 95 70 - 100 mg/dL 01/21/2024 5:04 PM CDT [facility] Comment:The given reference range is for the fasting state. Non-fasting reference range for glucose is 70 - 180 mg/dL. GFR, Estimated >60 >60 mL/min/1.7 3m2 01/21/2024 5:04 PM CDT [facility] Hours Fasting 0.0 8 - 12 Hours 01/21/2024 5:04 PM CDT [facility] Blood Venipuncture / Unknown 01/21/2024 12:27 PM CDT 01/21/2024 12:27 PM CDT Aashish Sosa MD LAB_1 [facility] [address] [place] [address], [facility] * Magnesium (01/21/2024 12:27 PM CDT) Magnesium 2.2 1.6 - 2.6 mg/dL 01/21/2024 5:04 PM CDT [facility] Blood Venipuncture / Unknown 01/21/2024 12:27 PM CDT 01/21/2024 12:27 PM CDT Aashish Sosa MD LAB_1 [facility] [address] [place], [place] [id number] [place] [address] documented in this encounter Visit Diagnoses Diagnosis Dysuria- Primary Urinary frequency Interstitial cystitis Chronic interstitial cystitis Chronic bilateral low back pain with right-sided sciatica (HRC) Disorder of rotator cuff of both shoulders Disorders of bursae and tendons in shoulder region, unspecified Tinea corporis Dermatophytosis of the body Psoriasis Other psoriasis Other chronic sinusitis Idiopathic peripheral neuropathy Unspecified hereditary and idiopathic peripheral neuropathy Muscle cramp Cramp of limb Constipation, unspecified constipation type documented in this encounter Care Teams Color Maker Relationship Specialty Start Date End Date Aashish Sosa MD [address] [place] [address] PCP - General Family Practice 09/30/20 documented as of this encounter
--- OUTSIDE RECORDS SUMMARY | 2024-02-03 14:41 | XMS_ITS | Encounter Summary ---
Author Organization [facility] Address [address] [place] [address] Care Team Providers Care Plant Operator Control Room Operator Name Role Phone Aashish Sosa MD Primary Care Provider [phone] Encounter Details Date Type Department Care Team (Late st Contact Info) Description 12/24/2023 Telephone [facility] [address] [place] [address] Asahish Sosa MD [address] [place] [address] [place] [address] Social History Tobacco Use Types Packs/Day Years [...] as of this encounter Nursing Notes * Aashish Sosa MD - 12/24/2023 5:19 PM CDT Appointment completed 12/24/23. WK. * Josefina Melendez RN - 12/24/2023 12:22 PM CDT Clinician: Review and advise and Patient is expecting a call back from [facility] Patient/child care director request: Appointment Work In: missed appointment today Specific Request: Patient would still like appointment today but is has to be by phone if that's possible? Spoke to patient who states she was told that Dr. Sosa was running late for her video appointment at 10 am today but has not heard from him. Patient's phone over heated and is having difficulty therefore the appointment has to be by phone only. documented in this encounter Plan of Treatment Upcoming Encounters Date Type Department Care Team (Late st Contact Info) Description 03/31/2024 11:00 AM PIPE ASSEMBLY WORKER Appointment [facility] [address] [facility] [place] [address] Aashish Sosa MD [address] [place] [address] documented as of this encounter Visit Diagnoses Not on filedocumented in this encounter Care Teams Plant Operator Control Room Operator Relationship Specialty Start Date End Date Aashish Sosa MD [address] [place] [id number] PCP - General Family Practice 09/30/20 documented as of this encounter
--- OUTSIDE RECORDS SUMMARY | 2024-02-03 14:41 | XMS_ITS | Encounter Summary ---
Author Organization [employer] Address [address] [place] [address] Care Team Providers Care Corporate Compliance Director Name Role Phone Aashish Sosa MD Primary Care Provider [phone] Reason for Visit * Reason Comments Order Questions Encounter Details Date Type Department Care Team (Late st Contact Info) Description 11/25/2023 Telephone [facility] [address] [facility] [place] [phone] Aashish Sosa MD [address] [facility] [place] [phone] Order Questions Social History Tobacco Use Types [...] 2:28 PM CDT Spoke to Sara at [facility] and clarified what she had said regarding a sinus CT scan. Sara stated they have never seen ordered as CT Fusion but they will go ahead and get a CT scan done of the sinuses in the head region. * Emmie Weiner 11/25/2023 2:02 PM CDT Other Questions/Concerns/FYI Is this a symptom? No What is your question or concern? [facility] calling needsa call back unsure what CT [...] st Contact Info) Description 03/31/2024 11:00 AM SPECIAL ORDER JEWELER Appointment [facility] [address] [facility] [place] [address] Aashish Sosa MD [address] [place] [address] documented as of this encounter Visit Diagnoses Not on filedocumented in this encounter Care Teams Corporate Compliance Director Relationship Specialty Start Date End Date Aashish Sosa MD [address] [place] [address] PCP - General Family Practice 09/30/20 documented as of this encounter
--- OUTSIDE RECORDS SUMMARY | 2024-02-03 14:41 | XMS_ITS | Encounter Summary ---
Author Organization [facility] Address [address], [place] [address] Care Team Providers Care Applications Support Specialist Name Role Phone Aashish Sosa MD Primary Care Provider [phone] Reason for Visit * Reason Comments Questions Encounter Details Date Type Department Care Team (Late st Contact Info) Description 12/20/2023 Telephone [facility] [address] [place] [address] Aashish Sosa MD [address] [place] [address] DR [address] [place], [place] [phone] Questions Social History Tobacco Use Types Packs/Day [...] Nursing Notes * Analilia Anthony MA - 12/20/2023 10:24 AM CDT Left message for patient and advised that upcoming appointment with PCP was changed to a video visit per patient's request. * Lisbet Mason RN - 12/20/2023 1:17 AM CDT Clinician: Review and advise Patient/patient care assistant request: Change appointment type. Specific Request: Pt calling, declines triage and states she just needs to vent as she is feeling frustrated. Has ongoing bladder issues and pain and states local [facility] would not treat her at this time. Statesshe will not go to the ED for this issue anymore. Pt has upcoming appointment with PCP and is unsure of a ride at this time and would like to change it to a phone or video visit if unable to confirm a ride to appointment. Would like to discuss this option. Would like to discuss with PCP about palliative care during next appointment. documented in this encounter Plan of Treatment Upcoming Encounters Date Type Department Care Team (Late st Contact Info) Description 03/31/2024 11:00 AM PRODUCE ASSISTANT Appointment [facility] [address] [facility] [place] [address] Aashish Sosa MD [address] [place] [address] documented as of this encounter Visit Diagnoses Not on filedocumented in this encounter Care Teams Applications Support Specialist Relationship Specialty Start Date End Date Aashish Sosa MD [address] [place] [address] [place] [address] PCP - General Family Practice 09/30/20 documented as of this encounter
--- OUTSIDE RECORDS SUMMARY | 2024-02-03 14:41 | XMS_ITS | Encounter Summary ---
Author Organization [facility] Address [address], [place] [address] Care Team Providers Care Layaway Clerk Name Role Phone Aashish Sosa MD Primary Care Provider [phone] Reason for Visit * Reason Comments Pharmacy methocarbamol (ROBAX IN) 750 MG tablet Encounter Details Date Type Department Care Team (Late st Contact Info) Description 12/02/2023 Telephone [facility] 300 [facility] [place] [phone] Aashish Sosa MD [address] [place] [phone] Pharmacy (methocarbamol (ROBAXIN) 750 MG tablet ) Social History Tobacco Use Types Packs/Day Years [...] Nursing Notes * Cassi Woodward RN - 12/04/2023 8:47 AM CDT Triage nurse spoke with pharmacist and relayed note below verbatim. Pharmacist in agreement, no further follow-up from PCP needed at this time. * Aashish Sosa MD - 12/03/2023 7:29 PM CDT Please let the pharmacist know that she should not have any early refills for Robaxin or any controlled substance. All controlled substances should be filled only 1 month at a time so I can review the refill date and the PDMP. If the pharmacy he would like to talk to me please let me know and I will give them a call back. Again the prescription should be filled every 30 days know sooner. Thank you. WK. 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 Orders are for 4x/day use, but pt told pharmacist that often she needs rx more frequently. Should orders have updated note for okay to fill every 28 days or every 30 days or list as limited 30 day supply on order, to avoid pt picking up and taking extra medication that has been used over the whole year (accumulating to 1 extra month in 1 year), with insurance requiring an override due to increased use? Or pcp to have better control over medication need and possible need to change to other pain management? Last visit 10/29/23. * Barby Lopez - 12/02/2023 3:00 PM CDT Medications - Pharmacy Calls Is your question or concern about a Prior Authorization? No. What is the question or concern? Pharmacy calling in to advise patient has been filling her medication a few days early and they arewanting to know if provider would like to change the directions for dosage for patient to take moreif needed that way they can put it through insurance Patient has picked up the following amounts: 4/4 - 30 day supply 5/2 - 15 day supply 14 - 30 day supply 8 - 30 day supply 5 - 30 day supply What is the name and dose of the medication? methocarbamol (ROBAXIN) 750 MG tablet Who prescribed it? Aashish Sosa MD Preferred communication method: Phone Call. Is it okay to leave a detailed message on your voicemail? Yes Is there anything else I can help you with today? documented in this encounter Plan of Treatment Upcoming Encounters Date Type Department Care Team (Late st Contact Info) Description 03/31/2024 11:00 AM BISQUE TILE BURNER Appointment [facility] 300 [facility] [place] [address] Aashish Sosa MD [address] [place] [address] documented as of this encounter Visit Diagnoses Not on filedocumented in this encounter Care Teams Layaway Clerk Relationship Specialty Start Date End Date Aashish Sosa MD [address] [place] [id number] PCP - General Family Practice 09/30/20 documented as of this encounter
--- OUTSIDE RECORDS SUMMARY | 2024-02-03 14:41 | XMS_ITS | Encounter Summary ---
Author Organization [employer] Address [address] [place] [address] Care Team Providers Care Health Services Rn Name Role Phone Aashish Sosa MD Primary Care Provider [phone] Encounter Details Date Type Department Care Team (Late st Contact Info) Description 12/03/2023 Nurse Triage [facility] [address] [place] [address] Aashish Sosa MD [address] [place] [address] [address] [place], [place] [id number] Social History Tobacco Use Types Packs/Day Years [...] Notes * Cassi Woodward RN - 12/04/2023 8:35 AM CDT Triage nurse spoke with patient and relayed note below, she verbalizes understanding. She is speaking in full sentences at time of this call, no acute distress noted. She also plans to follow up with ENT at local [facility] facility for chronic sinusitis. Pt has internal referral for otolaryngology consult, made on 07/16/2023. Finally, she requests 12/23 visit with PCP be changed to virtual due to lack of ride access. Warm transferred to call center for assistance with this request. * Aashish Sosa MD - 12/03/2023 7:42 PM CDT If he is any further shortness breath or any increasing symptoms she should go to the emergency department immediately. Any respiratory symptoms should be addressed urgently. Any other concerning or new symptoms she would be addressed at urgent care or emergency department. I will see you on 12/24/2023. 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 (Pt has future OV 12/24/23 but requesting input from PCP prior to then) Pt requests that PCP be informed that the prednisone that was prescribed for her sinus symptoms wasvery helpful. Pt initially called to question whether or not we had received the results of the CT scan of abdomen/pelvis completed on 11/27/23 at [facility]. Informed pt that the results have been scannedinto her chart. Pt then reported that she has been experiencing difficulty with breathing for the last couple of week and questions if the atelectasis documented on CT results could be the cause? She reports that she has been noticing shortness of breath for the last couple of weeks but her oxygen saturation levelhas been averaging 96% or higher. The shortness of breath primarily occurs with activity but sometime she feels like she needs to take a deep breath or feels mildly short of breath at rest as well. She states that she has an occasional rare cough. Denies fainting, or audible wheezing. Speaking in complete sentences without difficulty. Alert, answering questions appropriately. Pt declined ER at time of call despite recommendation to proceed. Pt provided with rationale for recommendation. Pt opted to scheduled first available appointment with PCP on 12/24/23 Reason for Disposition MODERATE difficulty breathing (e.g., speaks in phrases, SOB even at rest, pulse 100-120) of new-onset or worse than normal Protocols used: Breathing [id number] documented in this encounter Plan of Treatment Upcoming Encounters Date Type Department Care Team (Late st Contact Info) Description 03/31/2024 11:00 AM NIGHT TIME BABYSITTER Appointment [facility] [address] [facility] [place] [address] Aashish Sosa MD [address] [place] [address] documented as of this encounter Visit Diagnoses Not on filedocumented in this encounter Care Teams Health Services Rn Relationship Specialty Start Date End Date Aashish Sosa MD [address] [place] [address] [place] [address] PCP - General Family Practice 09/30/20 documented as of this encounter
--- OUTSIDE RECORDS SUMMARY | 2024-02-03 14:41 | XMS_ITS | Encounter Summary ---
Author Organization [facility] Address [address] [place] [address] Care Team Providers Care High School Science Tutor Name Role Phone Aashish Sosa MD Primary Care Provider [phone] Encounter Details Date Type Department Care Team (Late Contact Info) Description 01/29/2024 E-Visit [facility] - Urology [address] [facility]. [place], [place] [address] Mychart, [place] [address] Social History Tobacco Use Types Packs/Day Years [...] Department Care Team (Late Contact Info) Description 03/31/2024 11:00 AM COOK SOUP Appointment [facility] [address] [facility] [place] [address] Aashish Sosa MD [address] [place] [address] documented as of this encounter Visit Diagnoses Not on filedocumented in this encounter Care Teams High School Science Tutor Relationship Specialty Start Date End Date Aashish Sosa MD NPI: [id number] [place] [address] [place] [address] PCP - General Family Practice 09/30/20 documented as of this encounter
--- OUTSIDE RECORDS SUMMARY | 2024-02-03 14:41 | XMS_ITS | Encounter Summary ---
Author Organization [employer] Address [address], [place] [address] Care Team Providers Care Side Framer Name Role Phone Aashish Sosa MD Primary Care Provider [phone] Encounter Details Date Type Department Care Team (Late Contact Info) Description 01/21/2024 12:05 PM CDT Lab Visit [facility] [address] [facility] [place] [phone] Muscle cramp; Dysuria; Interstitial cystitis Social History Tobacco Use Types Packs/Day Years [...] (Late Contact Info) Description 03/31/2024 11:00 AM CONTRACT GRAPHIC DESIGNER Appointment [facility] [address] [place] [address] Aashish Sosa MD [address] [place] [address] [place] [id number] documented as of this encounter Procedures Procedure Name Priority Date/Time Associated Diagnosis Comments BASIC METABOLIC PANEL Routine 01/21/2024 12:27 PM CDT Muscle cramp MAGNESIUM Routine 01/21/2024 12:27 PM CDT Muscle cramp CBC AND DIFFERENTIAL PANEL Routine 01/21/2024 12:20 PM CDT Dysuria Interstitial cystitis COMPLETE BLOOD COUNT-W/DIFF Routine 01/21/2024 12:20 PM CDT Dysuria Interstitial cystitis documented in this encounter Results * Basic Metabolic Panel (01/21/2024 12:27 PM CDT) Sodium 138 136 - 145 mmol/L 01/21/2024 5:04 PM CDT [facility] Potassium 3.9 3.5 - 5.1 mmol/L 01/21/2024 5:04 PM CDT [facility] Chloride 103 98 - 109 mmol/L 01/21/2024 5:04 PM CDT [facility] CO2 27 20 - 29 mmol/L 01/21/2024 5:04 PM CDT [facility] Anion Gap 8 6 - 16 mmol/L 01/21/2024 5:04 PM CDT [facility] Calcium 9.8 8.4 - 10.4 mg/dL 01/21/2024 5:04 PM CDT [facility] BUN 9 7 - 26 mg/dL 01/21/2024 5:04 PM CDT [facility] Creatinine 0.73 0.55 - 1.02 mg/dL 01/21/2024 5:04 PM CDT [facility] Glucose 95 70 - 100 mg/dL 01/21/2024 5:04 PM CDT [facility] Comment:The given reference range is for the fasting state. Non-fasting reference range for glucose is 70 - 180 mg/dL. GFR, Estimated >60 >60 mL/min/1.7 3m2 01/21/2024 5:04 PM CDT [facility] Hours Fasting 0.0 8 - 12 Hours 01/21/2024 5:04 PM CDT [facility] Blood Venipuncture / Unknown 01/21/2024 12:27 PM CDT 01/21/2024 12:27 PM CDT Aashish Sosa MD LAB_1 [facility] [address] * Magnesium (01/21/2024 12:27 PM CDT) [facility] Magnesium 2.2 1.6 - 2.6 mg/dL 01/21/2024 5:04 PM CDT [facility] Blood Venipuncture / Unknown 01/21/2024 12:27 PM CDT 01/21/2024 12:27 PM CDT Aashish Sosa MD LAB_1 Performing Organization Address [facility] Co de Phone Number [facility] [address] * (ABNORMAL) Complete Blood Count-W/Diff (01/21/2024 12:20 PM CDT) [facility] WBC 11.9(H) 3.5 - 10.5 x10(9)/L 01/21/2024 1:15 PM CDT [facility] RBC 4.78 3.90 - 5.03 x10(12)/L 01/21/2024 1:15 PM CDT [facility] Hemoglobin 12.9 12.0 - 15.5 g/dL 01/21/2024 1:15 PM CDT [facility] HCT 41.7 34.9 - 44.5 % 01/21/2024 1:15 PM CDT [facility] MCV 87.2 80.0 - 100.0 fL 01/21/2024 1:15 PM CDT [facility] MCH 27.0(L) 27.6 - 33.3 pg 01/21/2024 1:15 PM CDT [facility] MCHC 30.9(L) 31.5 - 35.2 g/dL 01/21/2024 1:15 PM CDT [facility] RDW 14.7 11.9 - 15.5 % 01/21/2024 1:15 PM CDT [facility] Platelets 192 150 - 450 x10(9)/L 01/21/2024 1:15 PM CDT [facility] Automated NRBC 0 <=0 /100 WBC 01/21/2024 1:15 PM CDT [facility] Neutrophil Absolute 8.3(H) 1.7 - 7.0 10(9)/L 01/21/2024 1:15 PM CDT [facility] Lymphocyte Absolute 2.5 1.0 - 4.8 10(9)/L 01/21/2024 1:15 PM CDT [facility] Monocyte Absolute 0.7 0.2 - 0.9 10(9)/L 01/21/2024 1:15 PM CDT [facility] Eosinophil Absolute 0.3 0.0 - 0.5 10(9)/L 01/21/2024 1:15 PM CDT [facility] Basophil Absolute 0.1 0.0 - 0.3 10(9)/L 01/21/2024 1:15 PM CDT [facility] Immature Granulocyte % 0.6(H) 0.0 - 0.5 % 01/21/2024 1:15 PM CDT [facility] Blood Venipuncture / Unknown 01/21/2024 12:20 PM CDT 01/21/2024 1:13 PM CDT Aashish Sosa MD LAB_1 [facility] [address] [place] [address], [facility] documented in this encounter Visit Diagnoses Diagnosis Muscle cramp Cramp of limb Dysuria Interstitial cystitis Chronic interstitial cystitis documented in this encounter Care Teams Side Framer Relationship Specialty Start Date End Date Aashish Sosa MD [address] [place] [address] [place] [address] PCP - General Family Practice 09/30/20 documented as of this encounter
--- OUTSIDE RECORDS SUMMARY | 2024-02-03 14:41 | XMS_ITS | Encounter Summary ---
Author Organization [employer] Address [address] [place] [address] Care Team Providers Care Sterile Processing Tech Name Role Phone Aashish Sosa MD Primary Care Provider Encounter Details Date Type Department Care Team (Latest Contact Info) Description 12/03/2023 Orders Only [facility] DEPART[facility] ProviderLissy [place] [address] Social History Tobacco Use Types Packs/Day Years [...] st Contact Info) Description 03/31/2024 11:00 AM CREDIT VERIFICATION CLERK Appointment [facility] Medicine [address] [facility] [place] [address] Aashish Sosa MD [address] [place] [address] documented as of this encounter Procedures Procedure Name Priority Date/Time Associated Diagnosis Comments CT 12/03/2023 documented in this encounter Results * CT (12/03/2023) Anatomical Region Laterality Modality Other Interface Provider DUMMY/OTHER/AR documented in this encounter Visit Diagnoses Not on filedocumented in this encounter Care Teams Sterile Processing Tech Relationship Specialty Start Date End Date Aashish Sosa MD [address] [place] [address] PCP - General Family Practice 09/30/20 documented as of this encounter
--- OUTSIDE RECORDS SUMMARY | 2024-02-03 14:41 | XMS_ITS | Encounter Summary ---
Author Organization [employer] Address [address] [place] [address] Care Team Providers Care Sephora Product Consultant Name Role Phone Aashish Sosa MD Primary Care Provider [phone] Encounter Details Date Type Department Care Team (Latest Contact Info) Description 12/03/2023 Orders Only [facility] DEPARTMENT ProviderLissy [place] [address] Social History Tobacco Use Types Packs/Day Years [...] st Contact Info) Description 03/31/2024 11:00 AM COAL HAULER Appointment [facility] Medicine [address] [facility] [place] [address] Aashish Sosa MD [address] [place] [address] documented as of this encounter Procedures Procedure Name Priority Date/Time Associated Diagnosis Comments CT 12/03/2023 documented in this encounter Results * CT (12/03/2023) Anatomical Region Laterality Modality Other Interface Provider DUMMY/OTHER/AR documented in this encounter Visit Diagnoses Not on filedocumented in this encounter Care Teams Sephora Product Consultant Relationship Specialty Start Date End Date Aashish Sosa MD [address] [place] [address] PCP - General Family Practice 09/30/20 documented as of this encounter
--- OUTSIDE RECORDS SUMMARY | 2024-02-03 14:41 | XMS_ITS | Encounter Summary ---
Author Organization [employer] Address [address], [place] [address] Care Team Providers Care Cdl Flatbed Truck Driver Name Role Phone Aashish Sosa MD Primary Care Provider [phone] Reason for Visit * Reason Comments Dental Concerns Any abx? Encounter Details Date Type Department Care Team (Late st Contact Info) Description 01/30/2024 2:45 PM CDT E-Visit [facility] [address] [facility] [place] [phone] Aashish Sosa MD [address] [facility] [place], [place] [phone] Chief Comp: Dental Concerns Social History Tobacco Use Types Packs/Day Years [...] as of this encounter Nursing Notes * Lillie Mathew RN - 01/31/2024 2:13 PM CDT Clinician: Review and advise, Patient is expecting a [employer] message from [employer], and Bill for E-Visit as appropriate Patient/care director request: Input needed: Dental issue Specific Request: Pt requesting pcp to review MyChart note and advise if any antibiotic is recommended Last pcp visit 01/21/24. * Za Austin - 01/31/2024 10:16 AM CDT Patient notes symptoms in their message. Please review and respond to patient. RN: Review [employer] message. If appointment is necessary and you are unable to reach the patient respond to message using .[email or web address] documented in this encounter Plan of Treatment Upcoming Encounters Date Type Department Care Team (Late st Contact Info) Description 03/31/2024 11:00 AM LICENSED PROSTHETIST/ORTHOTIST Appointment [facility] [address] [facility] [place] [address] Aashish Sosa MD [address] [place] [address] documented as of this encounter Visit Diagnoses Not on filedocumented in this encounter Care Teams Cdl Flatbed Truck Driver Relationship Specialty Start Date End Date Aashish Sosa MD [address] [place] [address] [place] [address] PCP - General Family Practice 09/30/20 documented as of this encounter
--- OUTSIDE RECORDS SUMMARY | 2024-02-03 14:41 | XMS_ITS | Encounter Summary ---
Author Organization [facility] Address [address] [place] [address] Care Team Providers Care Barn Worker Name Role Phone Aashish Sosa MD Primary Care Provider [phone] Reason for Visit * Reason Comments Refill levothyroxine (SYNTH ROID) 112 MCG tablet [Pharmacy Med Name: LEVOTHYROXINE SODIUM 112 MC 112 Tablet] Encounter Details Date Type Department Care Team (Late st Contact Info) Description 01/23/2024 Refill [facility] Medicine [address] [place] [address] Aashish Sosa MD [address] [place], [place] [phone] Refill (levothyroxine (SYNTHROID) 112 MCG tablet [Pharmacy Med Name: LEVOTHYROXINE SODIUM 112 MC 112 Tablet]) Social History Tobacco Use Types Packs/Day [...] as of this encounter Nursing Notes * Elizabeth Miranda, RN - 01/23/2024 4:10 PM CDT Renewed medication per medication refill protocol. Requested Prescriptions Pending Prescriptions Disp Refills levothyroxine (SYNTHROID) 112 MCG tablet [Pharmacy Med Name: LEVOTHYROXINE SODIUM 112 MC 112 Tablet] 90 Tablet 3 Sig: Take 1 Tablet (112 mcg) by mouth daily. * Toi Zapatalawrence Xrwcomm - 01/23/2024 1:16 PM CDT levothyroxine (SYNTHROID) 112 MCG tablet [Pharmacy Med Name: LEVOTHYROXINE SODIUM 112 MC 112 Tablet] Medication started: 07/22/2018 Last ordered by AASHISH SOSA: 08/09/2023 (167 days ago) QTY: 90, Refills: 1, Sig: take 1 tablet(112 mcg) by mouth daily. (unchanged) -> Refill x 12 months, qty: 90, refills: 3 (until due for a(n) TSH check) Last qualifying visit: 01/21/2024 (with AASHISH SOSA) Next scheduled visit: None TSH: 0.76 mIU/L on 10/29/2023 [facility] Embedded Refills, Reference: [id number], 01/23/2024 1:16:52 PM CDT, Pool: [facility] - Primary Care [[id number]] ([id number]) documented in this encounter Plan of Treatment Upcoming Encounters Date Type Department Care Team (Late st Contact Info) Description 03/31/2024 11:00 AM MANUFACTURING OPERATIONS MANAGER Appointment [address] [place] [address] Aashish Sosa MD [address] [place] [address] documented as of this encounter Visit Diagnoses Not on filedocumented in this encounter Care Teams Barn Worker Relationship Specialty Start Date End Date Aashish Sosa MD [address] [place] [address] PCP - General Family Practice 09/30/20 documented as of this encounter
--- OUTSIDE RECORDS SUMMARY | 2024-02-03 14:41 | XMS_ITS | Encounter Summary ---
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 She would follow up regarding her chronic pain chronic rhinitis. She did get number sinuses. She canceled her ENT appointment. Chronic pain syndrome, chronic low back pain with intermittent radiculopathy, osteoarthritis right knee. Symptoms stable. She did kidney stone he weeks ago until 5 through Percocet but otherwise doneon schedule. It was no plan to proceed with total knee arthroplasty of the right knee or any back surgery. Reported. No bowel or bladder Incontinence or constitutional symptoms. Chronic rhinitis. Se has chronic nasal congestion. She has required bursa steroids several times a year. She was going to see ENT but canceled the appointment. She had developed recurrent sinus has continuous chronic nasal congestion which has not been responsive to nasal corticosteroids. It was aware she should not be using steroids chronic nasal congestion. Denies fever, chills, epistaxis or purulent nasal discharge. 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 Primary osteoarthritis of right knee Chronic rhinitis 1. Chronic pain syndrome 2. Chronic bilateral low back pain with intermittent right-sided sciatica 3. Osteoarthritis right knee advanced Assessment: Pain at baseline. Adequately controlled present dose Percocet. Plan: 1. PDMP checked and appropriate 2. Refill Percocet 5- 325, 180 tablets, 1 tablet q.4 hours p.r.n. maximum 6 tablets per day. 4. Chronic rhinitis Assessment: Reviewed her CT scan that was done out of our system. He was mucosal thickening right greater than left but the ostiomeatal complexes are open. He will reschedule her ENT consultation Plan: 1. . Advised to continue use of Flonase 2. ENT consultation 3. Follow up with me in 1 month. 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
--- OUTSIDE RECORDS SUMMARY | 2024-02-03 14:41 | XMS_ITS | Encounter Summary ---
Author Organization [employer] Address [address] [address] Care Team Providers Care Power Barker Name Role Phone Aashish Sosa MD Primary Care Provider [phone] Reason for Visit * Reason Comments Refill baclofen (LIORESAL) 10 MG tablet [Pharmacy Med Name: BACLOFEN 10 MG TABS 10 Tablet] Encounter Details Date Type Department Care Team (Late st Contact Info) Description 01/23/2024 [facility] 300 [facility] [place] [address] Aashish Sosa MD 300 [facility] [place] [phone] Refill (baclofen (LIORESAL) 10 MG tablet [Pharmacy Med Name: BACLOFEN 10 MG TABS 10 Tablet]) Social History Tobacco Use Types Packs/Day [...] Nursing Notes * Vincent Zapata Xrwcomm - 01/23/2024 1:16 PM CDT baclofen (LIORESAL) 10 MG tablet [Pharmacy Med Name: BACLOFEN 10 MG TABS 10 Tablet] Medication started: 09/27/2020 Last ordered by AASHISH SOSA: 08/09/2023 (167 days ago) QTY: 90, Refills: 5, Sig: take 1 tablet(10 mg) by mouth three times a day. (unchanged) -> Medication cannot be delegated. Last qualifying visit: 01/21/2024 (with AASHISH SOSA) Next scheduled visit: None [employer] Embedded Refills, Reference: [id number], 01/23/2024 1:16:52 PM CDT, Solitario: ZAK [facility] Services - Primary Care [[id number]] ([id number]) documented in this encounter Plan of Treatment Upcoming Encounters Date Type Department Care Team (Late st Contact Info) Description 03/31/2024 11:00 AM AUTO WINDER Appointment [place] [facility] Medicine 300 [facility] [place] [address] Aashish Sosa MD [address] [place] [phone] documented as of this encounter Visit Diagnoses Not on filedocumented in this encounter Care Teams Power Barker Relationship Specialty Start Date End Date Aashish Sosa MD [address] [place] [address] PCP - General Family Practice 09/30/20 documented as of this encounter
--- OUTSIDE RECORDS SUMMARY | 2024-02-03 14:41 | XMS_ITS | Encounter Summary ---
Author Organization [employer] Address [address] [place] [address] Care Team Providers Care Security Control Room Officer Name Role Phone Aashish Sosa MD Primary Care Provider [phone] Reason for Visit * Reason Comments Follow-up, NOS Entered automaticall y based on patient selection in [employer]. Encounter Details Date Type Department Care Team (Late st Contact Info) Description 01/23/2024 10:15 PM CDT E-Visit [address] [place] [address] Aashish Sosa MD [address] [place] [address] [phone] Chief Comp: Follow-up, NOS Social History Tobacco Use Types Packs/Day Years [...] as of this encounter Nursing Notes * Khurram Dorman - 01/24/2024 10:19 AM CDT Clinician: Review and advise and Patient is expecting a [employer] message from [employer] Patient/manager urgent care request: Input needed: lab results Specific Request: Patient has questions regarding recent lab results and MRI results. Please see e-visit for additional details and advise. documented in this encounter Plan of Treatment Upcoming Encounters Date Type Department Care Team (Late st Contact Info) Description 03/31/2024 11:[address] MARKER INSTALLER Appointment [address] [place] [address] Aashish Sosa MD [address] [place] [address] documented as of this encounter Visit Diagnoses Not on filedocumented in this encounter Care Teams Security Control Room Officer Relationship Specialty Start Date End Date Aashish Sosa MD [address] [place] [address] [place] [id number] PCP - General Family Practice 09/30/20 documented as of this encounter
--- OUTSIDE RECORDS SUMMARY | 2024-02-03 14:41 | XMS_ITS | Encounter Summary ---
Author Organization [employer] Address [address], [place] [address] Care Team Providers Care Robotype Operator Name Role Phone Aashish Sosa MD Primary Care Provider [phone] Reason for Visit * Reason Comments Refill baclofen (LIORESAL) 10 MG tablet [Pharmacy Med Name: BACLOFEN 10 MG TABS 10 Tablet] Encounter Details Date Type Department Care Team (Late st Contact Info) Description 01/23/[facility] [address] [facility] [address] Aashish Sosa MD [address] [facility] [place] [id number] Refill (baclofen (LIORESAL) 10 MG tablet [Pharmacy [...] Notes * Vincent Zapata Xrwcomm - 01/23/2024 1:17 PM CDT gabapentin (NEURONTIN) 300 MG capsule [Pharmacy Med Name: GABAPENTIN 300 MG CAPS 300 Capsule] Medication started: 03/31/2020 Last ordered by AASHISH SOSA: 11/04/2023 (80 days ago) QTY: 810, Refills: 0, Sig: take 3 capsules (900mg) by mouth three times daily (unchanged) -> The medication is active at more than one strength (300 mg on 11/04/2023, 400 mg on 08/09/2023). -> Medication cannot be delegated. Last qualifying visit: 01/21/2024 (with AASHISH SOSA) Next scheduled visit: None [employer] Embedded Refills, Reference: [id number], 01/23/2024 1:17:24 PM CDT, Pool: ZAK Refill Centralized Services - Primary Care [[id number]] ([id number]) documented in this encounter Plan of Treatment Upcoming Encounters Date Type Department Care Team (Late st Contact Info) Description 03/31/2024 11:00 AM EDGERMAN Appointment [facility] Medicine [address] [place] [address] [place] [address] Aashish Sosa MD [address] [place] [address] [place] [address] documented as of this encounter Visit Diagnoses Not on filedocumented in this encounter Care Teams Robotype Operator Relationship Specialty Start Date End Date Aashish Sosa MD [address] [place] [address] PCP - General Family Practice 09/30/20 documented as of this encounter
--- OUTSIDE RECORDS SUMMARY | 2024-02-03 14:41 | XMS_ITS | Encounter Summary ---
Author Organization [employer] Address [address], [place] [address] Care Team Providers Care Branch Rental Manager Name Role Phone Aashish Sosa MD Primary Care Provider [phone] Reason for Visit * Reason Onset Date Comments Refill 01/21/2024 Encounter Details Date Type Department Care Team (Late st Contact Info) Description 01/21/2024 Refill [facility] Medicine [address] [facility] [place] [phone] Aashish Sosa MD [address] [place] [id number] Refill Social History Tobacco Use Types Packs/Day Years [...] as of this encounter Nursing Notes * Padmini Huerta RN - 01/21/2024 12:44 PM CDT Spoke with patient. She is wanting to confirm that her Methocarbamol and Percocet can be sent to [facility]. Called [facility] and they report that patient has only a partial fill of Methocarbamol for #60 tablets on file that they can fill, however pharmacy would prefer new prescription for the #120 tablet prescription for patient to get 30- day supply. At some point (likely due to not having medication in stock) the pharmacy dispensed only a partial fill for patient. Further Assistance Needed on Refill from Clinician RN reviewed. Signed order needed. Requested medication needs an order signed by an authorized prescriber. Last prescription Methocarbamol 08/26/23 #120 tabs with 5 refills Last prescription percocet 5-325 mg 12/24/23 #[address] Sosa today 01/20 Review pended order for accuracy and sign if appropriate, Route to care team, and Patient is expecting call back Requested Prescriptions Pending Prescriptions Disp Refills oxyCODONE-acetaminophen (PERCOCET) 5-325 MG tablet 180 Tablet 0 Sig: TAKE 1-2 TABLETS BY MOUTH EVERY 4-6 HOURS NEEDED FOR PAIN. methocarbamol (ROBAXIN) 750 MG tablet 120 Tablet 5 Sig: Take 1 Tablet (750 mg) by mouth 4 times a day. documented in this encounter Plan of Treatment Upcoming Encounters Date Type Department Care Team (Late st Contact Info) Description 03/31/2024 11:00 AM FILTER CLOTH MAKER Appointment [facility] [address] [facility] [place] [address] Aashish Sosa MD [address] [place] [address] documented as of this encounter Visit Diagnoses Diagnosis Chronic bilateral low back pain with right-sided sciatica ([facility]) documented in this encounter Care Teams Branch Rental Manager Relationship Specialty Start Date End Date Aashish Sosa MD [address] [place] [address] PCP - General Family Practice 09/30/20 documented as of this encounter
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
--- OUTSIDE RECORDS SUMMARY | 2024-02-03 14:41 | XMS_ITS | Encounter Summary ---
Author Organization Wire Address [address], [place] [address] Care Team Providers Care Property Adjuster Name Role Phone Aashish Sosa MD Primary Care Provider [phone] Reason for Visit * Reason Comments Follow-up Encounter Details Date Type Department Care Team (Late st Contact Info) Description 11/25/[address] [place] [phone] Aashish Sosa MD [address] [place] [address] [address] [place] [id number] Follow-up Social History Tobacco Use Types Packs/Day [...] st Contact Info) Description 03/31/2024 11:00 AM MARINE WATER TENDER Appointment [address] [place] [address] Aashish Sosa MD [address] [place] [address] documented as of this encounter Visit Diagnoses Not on filedocumented in this encounter Care Teams Property Adjuster Relationship Specialty Start Date End Date Aashish Sosa MD [address] [place] [address] [place] [address] PCP - General Family Practice 09/30/20 documented as of this encounter
--- OUTSIDE RECORDS SUMMARY | 2024-02-03 14:42 | XMS_ITS | Encounter Summary ---
Author Organization [employer] Address [address] [place] [address] Care Team Providers Care Geospatial Program Management Officer Name Role Phone Aashish Sosa MD Primary Care Provider [phone] Reason for Visit * Reason Comments Refill Oxycodone Encounter Details Date Type Department Care Team (Late st Contact Info) Description 11/22/2023 Refill [facility] Medicine [address] [facility] [place] [phone] Aashish Sosa MD [address] [place] [address] Refill (Oxycodone) Social History Tobacco Use Types [...] Center 01/21/2024 11:00 AM Aashish Sosa MD [facility] Review pended order for accuracy [...] st Contact Info) Description 03/31/2024 11:00 AM BACK FACER Appointment [facility] Medicine [address] [place] [address] [place] [address] Aashish Sosa MD [address] [place] [address] [place] [address] documented as of this encounter Visit Diagnoses Diagnosis Chronic bilateral low back pain with right-sided sciatica (HRC) documented in this encounter Care Teams Geospatial Program Management Officer Relationship Specialty Start Date End Date Aashish Sosa MD [address] [place] [address] [place] [address] PCP - General Family Practice 09/30/20 documented as of this encounter
--- OUTSIDE RECORDS SUMMARY | 2024-02-03 14:42 | XMS_ITS | Encounter Summary ---
Author Organization [employer] Address [address], [place] [address] Care Team Providers Care Bag Bleacher Name Role Phone Aashish Sosa MD Primary Care Provider [phone] Reason for Visit * Reason Comments Medication Pharmacy Encounter Details Date Type Department Care Team (Late st Contact Info) Description 10/29/2023 Telephone [facility] [address] [facility] [place] [id number] Aashish Sosa MD [address] [facility] [place] [id number] Medication Pharmacy Social History Tobacco Use Types [...] CDT Clinician: Review and advise, Route to [facility], and Pharmacy is expecting a call back from [facility] Patient/animal care specialist request: Outside pharmacy questions Specific Request: Pt's pharmacy inquiring on rx wording in sig. States vials on tablet order. Would like PCP to clarify how pharmacy should fill- vials or tablets? thiamine 100 MG tablet [[id number]] Order Details Dose, Route, Frequency: As Directed [...] st Contact Info) Description 03/31/2024 11:00 AM UTILITY MAINTENANCE WORKER Appointment [address] [place] [address] Aashish Sosa MD [address] [place] [address] documented as of this encounter Visit Diagnoses Not on filedocumented in this encounter Care Teams Bag Bleacher Relationship Specialty Start Date End Date Aashish Sosa MD [address] [place] [address] [place] [address] PCP - General Family Practice 09/30/20 documented as of this encounter
--- OUTSIDE RECORDS SUMMARY | 2024-02-03 14:42 | XMS_ITS | Encounter Summary ---
Author Organization [employer] Address [address], [place] [address] Care Team Providers Care Diamond Cleaver Name Role Phone Aashish Sosa MD Primary Care Provider Reason for Referral * Therapies (Routine) - New Request Specialty Diagnoses / Procedures Referred By Erick t Referred To Contact Diagnoses Hammer toe of second toe of right foot Chronic bilateral low back pain with right-sided sciatica (HRC) Rotator cuff syndrome of left shoulder Aashish Sosa MD [address] [place] [address] [place] [address] Referral ID Status Reason Start Date Expiration Date V isits Requested Visits Authorized [id number] New Request 10/29/2023 10/28/2024 1 1 Scheduling [...] Description 10/29/2023 11:00 AM CDT Office Visit [facility] [address] [place] [address] Aashish Sosa MD [address] [place] [address] Other chronic sinusitis (Primary Dx); Vasomotor rhinitis; [...] back, foot. Refill oxycodone. Labs today. Enjoy [place]. See you in 3 months. documented in [...] prior to new patch application nystatin (MYCOSTATIN) [id number] UNIT/GM powder APPLY TO AFFECTED AREA TOPICALLY [...] st Contact Info) Description 03/31/2024 11:00 AM EMPLOYEE BENEFITS ATTORNEY Appointment [facility] [address] [place] [address] [place] [address] Aashish Sosa MD [address] [place] [address] [place] [address] Scheduled Referrals Name Type Priority Associated Diagnoses [...] foot documented in this encounter Care Teams Diamond Cleaver Relationship Specialty Start Date End Date Aashish Sosa MD [address] [place] [address] PCP - General Family Practice 09/30/20 documented as of this encounter
--- OUTSIDE RECORDS SUMMARY | 2024-02-03 14:42 | XMS_ITS | Encounter Summary ---
Author Organization [employer] Address [address], [place] [address] Care Team Providers Care Customer Account Administrator Name Role Phone Aashish Sosa MD Primary Care Provider [phone] Reason for Referral * Procedure/Equipment (Routine) - Incomplete Specialty Diagnoses / Procedures Referred By Contkierra t Referred To Contact Diagnoses Encounter for screening mammogram for malignant neoplasm of breast Procedures MM Mammogram Screening Bilat Aashish Dominique MD [address] [place] [address] [place] [address] Referral ID Status Reason Start Date Expiration Date V isits Requested Visits Authorized [id number] Incomplete 11/25/2023 02/23/2025 1 1 Reason for Visit * Reason Comments ORDERS Encounter Details Date Type Department Care Team (Late st Contact Info) Description 11/22/2023 Telephone [facility] [address] [facility] [place] [phone] Aashish Sosa MD [address] [place] [phone] ORDERS Social History Tobacco Use Types Packs/Day [...] and advised that we just spoke with [facility] and they do have the orders so she can call and make appointment. * Alaina Dillon RN - 11/25/2023 1:53 PM CDT Pt states she called [facility] and no faxed orders have been received. Routing to [facility] to follow up. * Analilia Anthony MA [...] WO IV Cont orders and faxed to [facility] [phone]. Ordered mammogram, printed, and faxed to [facility] [phone] * Subha Gates RN - 11/22/2023 10:50 AM CDT Patient wonders about having imaging orders sent to [facility] near her to have completed instead of doing at [facility]. Requesting the orders for CT Abd Pelvis W IV Cont and CT Fusion Sinus WO IV Cont that were ordered back in April to be sent to [facility]. Patient does not have the fax number, but the phone number for [facility] is [phone]. She is also due for a mammogram and wonders if there is way to have this ordered to [facility] as well? documented in this encounter Plan of Treatment Upcoming Encounters Date Type Department Care Team (Late st Contact Info) Description 03/31/2024 11:00 AM EXPLORATION ENGINEER Appointment [facility] [address] [facility] [place] [address] Aashish Sosa MD [address] [place] [address] Scheduled Orders Name Type Priority Associated Diagnoses Orde r Schedule MM Mammogram Screening Bilat W CAD Imaging New Routine Encounter for screening mammogram for malignant neoplasm of breast Expected: 11/25/2023 (Approximate), Expires: 11/24/2024 documented as of this encounter Visit Diagnoses Diagnosis Encounter for screening mammogram for malignant neoplasm of breast- Primary Other screening mammogram documented in this encounter Care Teams Customer Account Administrator Relationship Specialty Start Date End Date Aashish Sosa MD [address] [place] [address] PCP - General Family Practice 09/30/20 documented as of this encounter
--- OUTSIDE RECORDS SUMMARY | 2024-02-03 14:42 | XMS_ITS | Encounter Summary ---
Author Organization [employer] Address [address], [place] [address] Care Team Providers Care Elementary Librarian Name Role Phone Aashish Sosa MD Primary Care Provider [phone] Reason for Visit * Reason Comments Care Coordination Encounter Details Date Type Department Care Team (Late Contact Info) Description 03/11/2018 Care Conference [facility] [address] [place] [place] [address] Aashish Sosa MD [address] [place] [address] [address] [place] [id number] Social History Tobacco Use Types Packs/Day Years [...] (Late Contact Info) Description 03/31/2024 11:00 AM BUTTER PRINTER Appointment [facility] 300 [facility] [place] [address] Aashish Sosa MD [address] [place] [address] [place] [address] documented as of this encounter Visit Diagnoses Not on filedocumented in this encounter Care Teams Elementary Librarian Relationship Specialty Start Date End Date Aashish Sosa MD [address] [place] [address] PCP - General Family Practice 09/30/20 documented as of this encounter
--- OUTSIDE RECORDS SUMMARY | 2024-02-03 14:42 | XMS_ITS | Encounter Summary ---
Author Organization [employer] Address [address] [address] Care Team Providers Care Rolling Up Machine Operator Name Role Phone Aashish Sosa MD Primary Care Provider [phone] Reason for Visit * Reason Comments ERRONEOUS ENTRY Encounter Details Date Type Department Care Team (Late Contact Info) Description 08/02/[address] [place] [address] Aashish Sosa MD [address] [place] [address] [place] [address] ERRONEOUS ENTRY Social History Tobacco Use Types [...] Levi - 08/02/2023 1:57 PM CST error RAL RESOURCE TECHNICIAN documented in this encounter Plan of Treatment Upcoming Encounters Date Type Department Care Team (Late Contact Info) Description 03/31/2024 11:00 AM NATURAL RESOURCE TECHNICIAN Appointment [address] [place] [address] Aashish Sosa MD [address] [place] [address] documented as of this encounter Visit Diagnoses Not on filedocumented in this encounter Care Teams Rolling Up Machine Operator Relationship Specialty Start Date End Date Aashish Sosa MD [address] [place] [address] PCP - General Family Practice 09/30/20 documented as of this encounter
--- OUTSIDE RECORDS SUMMARY | 2024-02-03 14:42 | XMS_ITS | Encounter Summary ---
Author Organization [employer] Address [address], [place] [address] Care Team Providers Care Investment Banking Analyst Name Role Phone Aashish Sosa MD Primary Care Provider [phone] Reason for Visit * Reason Comments Refill gabapentin (NEURONTI N) 300 MG capsule [Pharmacy Med Name: GABAPENTIN 300 MG CAPS 300 Capsule] Encounter Details Date Type Department Care Team (Late st Contact Info) Description 11/02/2023 Refill [facility] 300 [place] [address] Aashish Sosa MD [address] [facility] [place] [id number] Refill (gabapentin (NEURONTIN) 300 MG capsule [Pharmacy [...] (with AASHISH SOSA) Next scheduled visit: None [facility] Embedded Refills, Reference: [id number], 11/02/2023 11:58:59 AM CDT, Solitario: ZAK Refill Centralized Services - Primary Care [[id number]] ([id number]) documented in this encounter Plan of Treatment Upcoming Encounters Date Type Department Care Team (Late st Contact Info) Description 03/31/2024 11:00 AM AGRICULTURAL CHEMICALS INSPECTOR Appointment [address] [place] [address] Aahsish Sosa MD [address] [place] [address] [place] [address] documented as of this encounter Visit Diagnoses Not on filedocumented in this encounter Care Teams Investment Banking Analyst Relationship Specialty Start Date End Date Aashish Sosa MD [address] [place] [address] PCP - General Family Practice 09/30/20 documented as of this encounter
--- OUTSIDE RECORDS SUMMARY | 2024-02-03 14:42 | XMS_ITS | Encounter Summary ---
Author Organization [employer] Address [address] [address] Care Team Providers Care Paint Process Engineer Name Role Phone Aashish Sosa MD Primary Care Provider Reason for Referral * Procedure/Equipment (Routine) - New Request Specialty Diagnoses / Procedures Referred By Contkierra t Referred To Contact Diagnoses Chronic bilateral low back pain with right-sided sciatica (HRC) Idiopathic peripheral neuropathy Unsteadiness Procedures Wheelchair - Manual Aashish Sosa MD [address] [place] [address] [place] [address] Referral ID Status Reason Start Date Expiration Date V isits Requested Visits Authorized [id number] New Request 11/14/2023 05/12/2024 1 1 Reason for Visit * Reason Comments Dme Supply Encounter Details Date Type Department Care Team (Late st Contact Info) Description 11/14/2023 Telephone [facility] 300 [facility] [place] [id number] Aashish Sosa MD [address] [place] [phone] Dme Supply Social History Tobacco Use Types [...] 3:59 PM CDT Wheelchair order faxed to [employer] at [phone] * Aashish Sosa MD - 11/14/2023 3:52 PM CDT DME order signed for manual wheelchair. Thank you. WK. * Suzi Monsivais CNA - 11/14/2023 2:50 PM CDT Clinician: Route to [facility] Patient/rn primary care request: New Order: DME wheelchair Specific Request: [facility] requesting order for manual wheel chair due to mobility issues. Order pended, please sign if appropriate documented in this encounter Plan of Treatment Upcoming Encounters Date Type Department Care Team (Late st Contact Info) Description 03/31/2024 11:00 AM SLUSHER OPERATOR Appointment [facility] [address] [facility] [place] [address] Aashish Sosa MD [address] [place] [address] [place] [address] documented as of this encounter Visit Diagnoses Diagnosis Chronic bilateral low back pain with right-sided sciatica (HRC)- Primary Idiopathic peripheral neuropathy Unspecified hereditary and idiopathic peripheral neuropathy Unsteadiness Abnormality of gait documented in this encounter Care Teams Paint Process Engineer Relationship Specialty Start Date End Date Aashish Sosa MD [address] [place] [address] [place] [address] PCP - General Family Practice 09/30/20 documented as of this encounter
--- OUTSIDE RECORDS SUMMARY | 2024-02-03 14:42 | XMS_ITS | Encounter Summary ---
Author Organization [employer] Address [address], [place] [address] Care Team Providers Care Global Technical Writer Name Role Phone Aashish Sosa MD Primary Care Provider [phone] Encounter Details Date Type Department Care Team (Late Contact Info) Description 10/29/2023 12:10 PM CDT Lab Visit [facility] [address] [place] [id number] Iron deficiency anemia due to chronic blood [...] st Contact Info) Description 03/31/2024 11:00 AM ARABIC LINGUIST Appointment [facility] [address] [place] [address] Aashish Sosa MD [address] [place] [address] documented as of this encounter Procedures Procedure [...] Complete Blood Count-W/Diff (10/29/2023 12:18 PM CDT) [facility] WBC 11.3(H) 3.5 - 10.5 x10(9)/L 10/29/2023 12:26 PM CDT [facility] RBC 4.91 3.90 - 5.03 x10(12)/L 10/29/2023 12:26 PM CDT [facility] Hemoglobin 13.0 12.0 - 15.5 g/dL 10/29/2023 12:26 PM CDT [facility] HCT 42.6 34.9 - 44.5 % 10/29/2023 12:26 PM [facility] MCV 86.8 80.0 - 100.0 fL 10/29/2023 12:26 PM [facility] MCH 26.5(L) 27.6 - 33.3 pg 10/29/2023 12:26 PM [facility] MCHC 30.5(L) 31.5 - 35.2 g/dL 10/29/2023 12:26 PM [facility] RDW 15.7(H) 11.9 - 15.5 % 10/29/2023 12:26 PM [facility] Platelets 179 150 - 450 x10(9)/L 10/29/2023 12:26 PM [facility] Automated NRBC 0 <=0 /100 WBC 10/29/2023 12:26 PM [facility] Neutrophil Absolute 6.6 1.7 - 7.0 10(9)/L 10/29/2023 12:26 PM [facility] Lymphocyte Absolute 3.3 1.0 - 4.8 10(9)/L 10/29/2023 12:26 PM [facility] Monocyte Absolute 0.7 0.2 - 0.9 10(9)/L 10/29/2023 12:26 PM [facility] Eosinophil Absolute 0.6(H) 0.0 - 0.5 10(9)/L 10/29/2023 12:26 PM [facility] Basophil Absolute 0.1 0.0 - 0.3 10(9)/L 10/29/2023 12:26 PM [facility] Immature Granulocyte % 0.4 0.0 - 0.5 % 10/29/2023 12:26 PM [facility] Blood Venipuncture / Unknown 10/29/2023 12:18 PM CDT 10/29/2023 12:19 PM T Aashish Sosa MD LAB_[address] [address], [facility] * (ABNORMAL) Hgb A1C (10/29/2023 12:18 PM CDT) [facility] Hemoglobin A1C 6.7(H) <=5.6 % 10/29/2023 9:59 PM CDT [facility] Estimated Average Glucose (Calc) 146 < 117 mg/dL 10/29/2023 9:59 PM CDT [facility] Comment:Estimated average gl ucose (eAG) converts A1c into glucose units (mg/dL) and estimates average glucose over the past approximately 3 months. The eAG reference interval (<117 mg/dL) corresponds to an A1c of <5.7%. Blood Venipuncture / Unknown 10/29/2023 12:18 PM CDT 10/29/2023 12:19 PM CDT Narrative [facility] - 10/29/2023 9:59 PM CDT For patients not previously diagnosed with diabetes: 5.7-6.4%: Increased risk for diabetes 6.5% and greater: Diagnostic for diabetes For patients diagnosed with diabetes: <8.0%: Goal of therapy for ages 18-75 Clinicians may recommend a higher or lower goal for specific individuals. Aashish Sosa MD LAB_1 Performing Organization Address City/[facility]/ZIP Co de Phone Number [facility] [address] * Ferritin (10/29/2023 12:18 PM CDT) [facility] Ferritin 10 9 - 204 ng/mL 10/29/2023 5:41 PM CDT [facility] Blood Venipuncture / Unknown 10/29/2023 12:18 PM CDT 10/29/2023 12:19 PM CDT Aashish Sosa MD LAB_1 [facility] [address] * TSH (10/29/2023 12:18 PM CDT) TSH, Sensitive 0.76 0.30 - 4.50 uIU/mL 10/29/2023 5:41 PM CDT [facility] Blood Venipuncture / Unknown 10/29/2023 12:18 PM CDT 10/29/2023 12:19 PM CDT Aashish Sosa MD LAB_1 Performing Organization Address [facility] Phone Number [facility] [address] * Lipase (10/29/2023 12:18 PM CDT) Lipase 27 <=60 U/L 10/29/2023 5:37 PM CDT [facility] Blood Venipuncture / Unknown 10/29/2023 12:18 PM CDT 10/29/2023 12:19 PM CDT Aashish Sosa MD LAB_1 Performing Organization Address [facility] Phone Number [facility] [address] * Comp Metabolic Panel (10/29/2023 12:18 PM CDT) Sodium 140 136 - 145 mmol/L 10/29/2023 5:37 PM CDT [facility] Potassium 4.2 3.5 - 5.1 mmol/L 10/29/2023 5:37 PM CDT [facility] Chloride 102 98 - 109 mmol/L 10/29/2023 5:37 PM CDT [facility] CO2 29 20 - 29 mmol/L 10/29/2023 5:37 PM CDT [facility] Anion Gap 9 6 - 16 mmol/L 10/29/2023 5:37 PM CDT [facility] Calcium 9.5 8.4 - 10.4 mg/dL 10/29/2023 5:37 PM CDT [facility] BUN 10 7 - 26 mg/dL 10/29/2023 5:37 PM CDT [facility] Creatinine 0.75 0.55 - 1.02 mg/dL 10/29/2023 5:37 PM CDT [facility] Alkaline Phosphatase 86 40 - 150 U/L 10/29/2023 5:37 PM CDT [facility] AST (SGOT) 21 10 - 40 U/L 10/29/2023 5:37 PM CDT [facility] ALT (SGPT) 14 <=55 U/L 10/29/2023 5:37 PM CDT [facility] Bilirubin, Total 0.2 0.2 - 1.2 mg/dL 10/29/2023 5:37 PM CDT [facility] Protein, Total 7.2 6.4 - 8.3 g/dL 10/29/2023 5:37 PM CDT [facility] Albumin 3.7 3.5 - 5.0 g/dL 10/29/2023 5:37 PM CDT [facility] Glucose 94 70 - 100 mg/dL 10/29/2023 5:37 PM CDT [facility] Comment:The given reference range is for the fasting state. Non-fasting reference range for glucose is 70 - 180 mg/dL. GFR, Estimated >60 >60 mL/min/1.7 3m2 10/29/2023 5:37 PM CDT [facility] Hours Fasting 0.0 8 - 12 Hours 10/29/2023 5:37 PM CDT [facility] Blood Venipuncture / Unknown 10/29/2023 12:18 PM CDT 10/29/2023 12:19 PM CDT Aashish Sosa MD LAB_1 Performing Organization Address City/State/[facility] Co de Phone Number [facility] [address] documented in this encounter Visit Diagnoses Diagnosis Iron deficiency anemia due to chronic blood loss Iron deficiency anemia secondary to blood loss (chronic) Type 2 diabetes mellitus with obesity (HRC) Thrombocytopenia (HRC) Thrombocytopenia, unspecified documented in this encounter Care Teams Global Technical Writer Relationship Specialty Start Date End Date Aashish Sosa MD [address] [place] [address] PCP - General Family Practice 09/30/20 documented as of this encounter
--- NOTE | 2024-02-03 15:00 | CRLHL7_ITS ---
For Patients: As a result of the Cures Act, medical imaging exams and procedure reports are released immediately into your electronic medical record. You may view this report before your referring provider. If you have questions, please contact your health care provider. BILATERAL DIGITAL SCREENING MAMMOGRAM WITH COMPUTER-AIDED DETECTION AND TOMOSYNTHESIS CLINICAL HISTORY: Routine screening exam. COMPARISON: None. TECHNIQUE: Digital mammogram in CC and MLO projections including computer-aided detection (CAD). Tomosynthesis was used in this interpretation. BREAST COMPOSITION: There are scattered areas of fibroglandular density. FINDINGS: RIGHT Breast: Focal nodular density within the upper outer quadrant 4 cm from the nipple. LEFT Breast: No suspicious findings. IMPRESSION: RIGHT breast asymmetry/mass. RECOMMENDATIONS: Additional mammographic views of the RIGHT breast including 3D spot compression CC/MLO. RIGHT breast ultrasound may also be required. The [facility] will contact the patient for follow-up. BI-RADS Category 0: Incomplete: Need Additional Imaging Evaluation and/or Prior Mammograms for Comparison A lay language report of this examination will be provided to the patient. Dictated by Gerald Perry MD @ 02/04/2024 10:22:48 AM /geri/[email or web address] SP/Dictated by: Gerald Perry MD @ 02/04/2024 10:37:00 AM (Electronically Signed)
== END 2024-02-03 14:38 | disposition home or self-care (01) ==
LOC: MAMMO 14:38
PROVIDERS: PCP Internal Medicine; Visit Provider Family Medicine
DX: Z12.31 Encounter for screening mammogram for malignant neoplasm of breast (principal); N63.10 Unspecified lump in the right breast, unspecified quadrant
CPT/HCPCS: 77063; 77067

== ENCOUNTER 2024-02-12 10:19 | Outpatient (CLI) | payer MEDICAID, SELFPAY ==
--- OUTSIDE RECORDS SUMMARY | 2024-02-12 10:23 | XMS_ITS | Clinical Summary ---
Author Organization [employer] Address [address] [place] [address] Care Team Providers Care Database Consultant Name Role Phone Aashish Sosa MD Primary Care Provider [phone] Source Comments You are receiving this document [...] for each transition of care or referral. [facility] Allergies Active Allergy Reactions Criticality Noted Date [...] Tablet 2 08/09/19 24 Active nystatin (MYCOSTATIN) 110155 UNIT/GM powder APPLY TO AFFECTED AREA TOPICALLY DIRECTED 45 g 3 08/09/19 24 Active nicotine (NICODERM CQ) 21 MG/24HR patchIndications:T obacco abuse ([facility]) Apply 1 Patch to skin every [...] % nasal solutionIndication s:Vasomotor rhinitis Place 1 [place] into both nostrils two times a day. [...] liver 10/29/2019 Atherosclerotic heart diseas e of [place] coronary artery without angina pectoris 10/29/2019 Thrombocytopenia [...] Encounters Date Type Department Care Team Description 02/07/2024 1:25 PM CDT E-Visit [address] [place] [address] Aashish Sosa MD Chief Comp: QUESTIONS, GENERAL 02/05/[address] [facility] [address] [place] [address] Aashish Sosa MD Refill 02/03/2024 Orders Only HIM DEPARTMENT Provider, MD Lissy 01/30/2024 2:45 PM CDT E-Visit [address] [place] [address] Aashish Sosa MD Chief Comp: Dental Concerns 01/29/2024 E-Visit [facility] - Urology [address] [facility] [place] [address] Mychart, Generic Provider 01/23/2024 10:15 PM CDT E-[place] [address] [place] [address] Aashish Sosa MD Chief Comp: Follow-up, NOS 01/23/2024 [address] [place] [address] Aashish Sosa MD Refill (baclofen (LIORESAL) 10 MG tablet [Pharmacy Med Name: BACLOFEN 10 MG TABS 10 Tablet]) 01/23/[address] [address] Aashish Sosa MD Refill (baclofen (LIORESAL) 10 MG tablet [Pharmacy Med Name: BACLOFEN 10 MG TABS 10 Tablet]) 01/23/[address] [address] Aashish Sosa MD Refill (levothyroxine (SYNTHROID) 112 MCG tablet [Pharmacy Med Name: LEVOTHYROXINE SODIUM 112 MC 112 Tablet]) 01/21/2024 12:05 PM CDT Lab Visit [address] [place] [address] Muscle cramp; Dysuria; Interstitial cystitis 01/21/2024 11:00 AM CDT Office Visit [address] [place] [address] Aashish Sosa MD Dysuria (Primary Dx); Urinary frequency; Interstitial cystitis; Chronic bilateral low back pain with right-sided sciatica (HRC); Disorder of rotator cuff of both shoulders; Tinea corporis; Psoriasis; Other chronic sinusitis; Idiopathic peripheral neuropathy; Muscle cramp; Constipation, unspecified constipation type 01/21/[address] [place] [address] Aashish Sosa MD Refill 12/24/2023 10:00 AM CDT Telemedicine [address] [address] Aashish Sosa MD Chronic pain syndrome (Primary Dx); Chronic bilateral low back pain with right-sided sciatica (HRC); Primary osteoarthritis of right knee; Chronic rhinitis 12/24/[address] [facility] [address] [place] [address] Aashish Sosa MD 12/20/2023 Telephone [facility] Nurse Line [address] [place] [address] Aashish Sosa MD Questions 12/03/[address] [facility] [address] [place] [address] Aashish Sosa MD 12/03/2023 Orders Only HIM DEPARTMENT ProviderLissy MD 12/03/2023 Orders Only HIM DEPARTMENT Provider, Lissy, 12/02/[address] [place] [address] Aashish Sosa MD Pharmacy (methocarbamol (ROBAXIN) 750 MG tablet ) 11/25/[address] [place] [address] Aashish Sosa MD Order Questions 11/25/[address] [place] [address] Aashish Sosa MD Follow-up 11/22/[address] [place] [address] Aashish Sosa MD ORDERS 11/22/[address] [place] [address] Aashish Sosa MD Refill (Oxycodone) 11/14/[address] [place] [address] Aashish Sosa MD Dme Supply from Last 3 [...] (Late Contact Info) Description 03/31/2024 11:00 AM CONSTRUCTION ANALYST Appointment [facility] [place] [facility] [address] [facility] [place] [address] Aashish Sosa MD [address] [place] [address] Health Maintenance Due Date Last Done Comments MTM Targeted 1961 Pneumococcal (1 - PCV) 1967 Adult Preventive Visit 1979 DTaP/Tdap/Td (1 - Tdap) 1980 FIT Colon Cancer Screening 2005 Zoster/Shingles (1 of 2) 2011 Lung Cancer Screening 12/20/2018 12/20/2017, 017 RSV (1 - Risk 60-74 years 1-dose series) 2021 Diabetes: Eye Exam 01/23/2024 01/22/2023, 0 01/22/2023, 08/14/2021, Additional history exists COVID-19 Vaccine ( season) 2024 11/07/2021, 04/28/2021, 08/05/2020, Additional history exists Influenza (#1) 2024 Diabetes: HGBA1C 01/29/2024 10/29/2023, , 01/08/2023, Additional history exists Diabetes: Foot Exam 02/14/2024 02/13/2023 Diabetes: Urine Microalbumin 02/14/2024 02/13/2023 Diabetes: Lipid Panel 03/06/2024 03/06/2019 , 01/04/2009, 10/06/2002 Diabetes: Creatinine 01/20/2025 01/21/2024, 10/29/2023, 02/13/2023, Additional history exists Mammogram 02/02/2025 02/03/2024, 01/2024 (Completed), 05/10/2015, Additional history exists Cholesterol Discontinued 03/06/2019, 01/04/2009 [...] Procedure Name Priority Date/Time Associated Diagnosis Comments MAMMOGRAM SC 02/03/2024 URINALYSIS ROUTINE, MICRO/CULTURE IF POS Routine 01/21/2024 [...] Recently Relevant to Health Maintenance Results * MAMMOGRAM SC (02/03/2024) Interface Provider DUMMY/OTHER/AR * Urinalysis Routine, Micro/Culture if Pos: Clean Catch (01/21/2024 12:39 PM CDT) Urine Culture Comment Urinalysis results do not meet criteria for urine culture reflex. 01/21/2024 12:45 PM [facility] Urine Color Yellow 01/21/2024 12:45 PM [facility] Urine Clarity Clear Clear 01/21/2024 12:45 PM [facility] Specific [place], Urine 1.010 1.005 - 1.030 01/21/2024 12:45 PM [facility] PH Urine 6.0 5.0 - 8.0 01/21/2024 12:45 PM [facility] Protein, Urine Qual (mg/dL) Negative Neg/Trace 01/21/2024 12:45 PM [facility] Glucose Urine Qual (mg/dL) Negative Negative 01/21/2024 12:45 PM [facility] Ketones, Urine (mg/dL) Negative Negative 01/21/2024 12:45 PM [facility] Urobilinogen, Urine (EU/dL) 0.2 <2.0 01/21/2024 12:45 PM [facility] Bilirubin Urine Negative Negative 01/21/2024 12:45 PM [facility] Blood, Urine Negative Neg/Trace 01/21/2024 12:45 PM [facility] Nitrite Urine Negative Negative 01/21/2024 12:45 PM CDT [facility] Leukocyte Est. Negative Negative 01/21/2024 12:45 PM CDT [facility] Urine Source Clean Catch 01/21/2024 12:45 PM CDT [facility] Urine URINE SPECIMEN COLLECTION, CLEAN CATCH / Unknown Non-blood Collection / Unknown 01/21/2024 12:39 PM CDT 01/21/2024 12:40 PM CDT Aashish Sosa MD LAB_1 [facility] [address] [place] [id number], [facility] * Basic Metabolic Panel (01/21/2024 12:27 PM [...] Aashish Sosa MD LAB_1 Performing Organization Address [facility]/ZIP Co de Phone Number [facility] [address] * Magnesium (01/21/2024 12:27 PM CDT) Magnesium 2.2 1.6 - 2.6 mg/dL 01/21/2024 5:04 PM CDT [facility] Blood Venipuncture / Unknown 01/21/2024 12:27 PM CDT 01/21/2024 12:27 PM CDT Aashish Sosa MD LAB_1 Performing Organization Address [facility] de Phone Number [facility] [address] * (ABNORMAL) Complete Blood Count-W/Diff (01/21/2024 12:20 PM CDT) WBC 11.9(H) 3.5 - 10.5 x10(9)/L 01/21/2024 1:15 PM CDT [facility] RBC 4.78 3.90 - 5.03 x10(12)/L 01/21/2024 1:15 PM CDT [facility] Hemoglobin 12.9 12.0 - 15.5 g/dL 01/21/2024 1:15 PM CDT [facility] HCT 41.7 34.9 - 44.5 % 01/21/2024 1:15 PM CDT [facility] MCV 87.2 80.0 - 100.0 fL 01/21/2024 1:15 PM CDT [facility] MCH 27.0(L) 27.6 - 33.3 pg 01/21/2024 1:15 PM CDT [facility] MCHC 30.9(L) 31.5 - 35.2 g/dL 01/21/2024 1:15 PM CDT [facility] RDW 14.7 11.9 - 15.5 % 01/21/2024 1:15 PM CDT [facility] Platelets 192 150 - 450 x10(9)/L 01/21/2024 1:15 PM CDT [facility] Automated NRBC 0 <=0 /100 WBC 01/21/2024 1:15 PM CDT [facility] Neutrophil Absolute 8.3(H) 1.7 - 7.0 10(9)/L 01/21/2024 1:15 PM CDT [facility] Lymphocyte Absolute 2.5 1.0 - 4.8 10(9)/L 01/21/2024 1:15 PM CDT [facility] Monocyte Absolute 0.7 0.2 - 0.9 10(9)/L 01/21/2024 1:15 PM CDT [facility] Eosinophil Absolute 0.3 0.0 - 0.5 10(9)/L 01/21/2024 1:15 PM CDT [facility] Basophil Absolute 0.1 0.0 - 0.3 10(9)/L 01/21/2024 1:15 PM CDT [facility] Immature Granulocyte % 0.6(H) 0.0 - 0.5 % 01/21/2024 1:15 PM [facility] Blood Venipuncture / Unknown 01/21/2024 12:20 PM CDT 01/21/2024 1:13 PM CDT Aashish Sosa MD LAB_[address] [phone] * CT (12/03/2023) Only the most recent of2 resultswithin the time period is included. Anatomical Region Laterality Modality Other Interface Provider DUMMY/OTHER/AR * (ABNORMAL) Hgb A1C (10/29/2023 12:18 PM CDT) Hemoglobin A1C 6.7(H) <=5.6 % 10/29/2023 9:59 PM CDT COUNTS INCLUDE 234 BEDS AT [facility] Estimated Average Glucose (Calc) 146 < 117 mg/dL 10/29/2023 9:59 PM CDT [facility] Comment:Estimated average gl ucose (eAG) converts A1c into glucose units (mg/dL) and estimates average glucose over the past approximately 3 months. The eAG reference interval (<117 mg/dL) corresponds to an A1c of <5.7%. Blood Venipuncture / Unknown 10/29/2023 12:18 PM CDT 10/29/2023 12:19 PM CDT Narrative [facility] - 10/29/2023 9:59 PM CDT For patients not previously diagnosed with diabetes: 5.7-6.4%: Increased risk for diabetes 6.5% and greater: Diagnostic for diabetes For patients diagnosed with diabetes: <8.0%: Goal of therapy for ages 18-75 Clinicians may recommend a higher or lower goal for specific individuals. Aashish Sosa MD LAB_1 Performing Organization Address City/[facility]/ZIP Co de Phone Number [facility] [address] * Albumin/Creatinine Ratio,Random Urine (02/13/2023 12:15 [...] 12:15 PM CDT Aashish Sosa MD LAB_1 [facility] [address] [place], [place] [id number] [place] [address] * Hepatitis Panel with Reflex to Confirmation [...] Suzan Manzano PA-C LAB_1 Performing Organization Address [facility] Co de Phone Number [facility] [address] [place] [address] * HIV 1/2 Ag/Ab 4th Generation (03/06/2019 3:10 PM CDT) HIV 1/2 Antigen/Antib adán (4th generation) Negative (Non Reactive) Negative (Non Reactive) 03/06/2019 7:24 PM CDT [facility] Comment:HIV-1 p24 Antigen an d HIV-1/HIV-2 Antibody not detected Blood Venipuncture / Unknown 03/06/2019 3:10 PM CDT 03/06/2019 3:10 PM CDT Aashish Sosa MD LAB_1 Performing Organization Address [facility]/ZIP Co de Phone Number [facility] [address] * Lipid Panel and Direct LDL(If [...] Hours Fasting 10 03/06/2019 7:10 PM CDT [facility] Blood Venipuncture / Unknown 03/06/2019 3:10 PM CDT 03/06/2019 3:10 PM CDT Aashish Sosa MD LAB_1 [facility] [address] LABORAT[address] [place] [phone] [phone] * CT Chest WO IV Cont Lung [...] 4:36 PM 02/28/2019 1:13 PM Care Teams Database Consultant Relationship Specialty Start Date End Date Aashish Sosa MD [address] [place] [address] [place] [address] PCP - General Family Practice 09/30/20
--- OUTSIDE RECORDS SUMMARY | 2024-02-12 10:23 | XMS_ITS | Encounter Summary ---
Author Organization [employer] Address [address] [place] [address] Care Team Providers Care Project Associate Name Role Phone Aashish Sosa MD Primary Care Provider [phone] Encounter Details Date Type Department Care Team (Late st Contact Info) Description 12/03/2023 Nurse Triage [facility] [address] [place] [address] Aashish Sosa MD [address] [place] [address] [address] [place], [place] [phone] Social History Tobacco Use Types Packs/Day Years [...] to follow up with ENT at local [facility] facility for chronic sinusitis. Pt has internal [...] 2:05 PM CDT Clinician: Review and advise Patient/acute care nurse practitioner request: Input needed: imaging results Specific Request: Pt questions if PCP thinks that the atelectasis noted on CT scan done 11/27/23 at [facility](results scanned into pt's chart) could be the [...] scan of abdomen/pelvis completed on 11/27/[address] [facility]. Informed pt that the results have been [...] or worse than normal Protocols used: Breathing [id number] documented in this encounter Plan of Treatment Upcoming Encounters Date Type Department Care Team (Late st Contact Info) Description 03/31/2024 11:00 AM SENIOR INVESTIGATOR Appointment [facility] [address] [facility] [place] [address] Aashish Sosa MD [address] [place] [address] documented as of this encounter Visit Diagnoses Not on filedocumented in this encounter Care Teams Project Associate Relationship Specialty Start Date End Date Aashish Sosa MD [address] [place] [address] [place] [address] PCP - General Family Practice 09/30/20 documented as of this encounter
--- OUTSIDE RECORDS SUMMARY | 2024-02-12 10:23 | XMS_ITS | Encounter Summary ---
Author Organization [facility] Address [address] [place] [address] Care Team Providers Care Cloth Winder Name Role Phone Aashish Sosa MD Primary Care Provider Reason for Referral * Consult/Transfer Care (Routine) - New Request Specialty Diagnoses / Procedures Referred By Erick kennedy Referred To Contact Diagnoses Interstitial cystitis Aashish Sosa MD [address] [place] [address] [place] [address] Referral ID Status Reason Start Date Expiration Date V isits Requested Visits Authorized [id number] New Request 01/21/2024 04/21/2025 1 1 Scheduling Instructions Your clinician has recommended an appointment with [facility]. You can quickly make your appointment online at [employer]/schedule. You can also call [phone] for help scheduling your appointment. We suggest you call your health insurance company about your coverage and benefits for this appointment. Question Answer Appointment Urgency? Non-Urgent Reason for visit? interstitial cystitis * Consult/Transfer Care (Routine) - New Request Specialty Diagnoses / Procedures Referred By Erick kennedy Referred To Contact Diagnoses Other chronic sinusitis Aashish Sosa MD [address] [place] [address] Referral ID Status Reason Start Date Expiration Date V isits Requested Visits Authorized [id number] New Request 01/21/2024 04/21/2025 1 1 Scheduling Instructions Your clinician has recommended an appointment with [facility] ([facility]) - Head & Neck Surgery. You may call [phone] for help scheduling your appointment. We suggest [...] Wheelchair - Manual Aashish Sosa MD [address] [place] [address] Referral ID Status Reason Start Date Expiration Date V isits Requested Visits Authorized [id number] New Request 01/21/2024 07/19/2024 1 1 Reason for Visit * Reason Comments Follow-up MEDICATION CHECK Encounter Details Date Type Department Care Team (Late st Contact Info) Description 01/21/2024 11:00 AM CDT Office Visit [facility] [address] [facility] [place] [phone] Aashish Sosa MD [address] [place] [phone] Dysuria (Primary Dx); Urinary frequency; Interstitial cystitis; [...] to triamcinolone. She has not seen a medical lab tech instructor for long time. Chronic sinusitis. She has [...] (ASTELIN) 0.1 % nasal solution Place [address] [place] into both nostrils two times a day. [...] prior to new patch application nystatin (MYCOSTATIN) [id number] UNIT/GM powder APPLY TO AFFECTED AREA TOPICALLY [...] this is consistent with psoriasis Plan: 1. [place] use of moisturizers 2. Triamcinolone ointment applied b.i.d. for up to 1 month 3. Consider dermatologic consultation. 4. Avoid excessive use of topical steroids to avoid skin atrophy. 9. Chronic sinusitis Assessment plan: She gets recurrent sinus infections in his chronically congested. Will obtain E[facility] consultation within [facility] 10. Muscle cramping chronic 11. Idiopathic peripheral [...] st Contact Info) Description 03/31/2024 11:00 AM GAS WELDER APPRENTICE Appointment [facility] [address] [place] [address] [place] [address] Aashish Sosa MD [address] [place] [address] [place] [address] Scheduled Referrals Name Type Priority Associated Diagnoses [...] urine culture reflex. 01/21/2024 12:45 PM [facility] Urine Color Yellow 01/21/2024 12:45 PM [facility] Urine Clarity Clear Clear 01/21/2024 12:45 PM [facility] Specific [place], Urine 1.010 1.005 - 1.030 01/21/2024 12:45 PM [facility] PH Urine 6.0 5.0 - 8.0 01/21/2024 12:45 PM [facility] Protein, Urine Qual (mg/dL) Negative Neg/Trace 01/21/2024 12:45 PM [facility] Glucose Urine Qual (mg/dL) Negative Negative 01/21/2024 12:45 PM [facility] Ketones, Urine (mg/dL) Negative Negative 01/21/2024 12:45 PM [facility] Urobilinogen, Urine (EU/dL) 0.2 <2.0 01/21/2024 12:45 PM [facility] Bilirubin Urine Negative Negative 01/21/2024 12:45 PM [facility] Blood, Urine Negative Neg/Trace 01/21/2024 12:45 PM [facility] Nitrite Urine Negative Negative 01/21/2024 12:45 PM [facility] Leukocyte Est. Negative Negative 01/21/2024 12:45 PM [facility] Urine Source Clean Catch 01/21/2024 12:45 PM [facility] Urine URINE SPECIMEN COLLECTION, CLEAN CATCH / Unknown Non-blood Collection / Unknown 01/21/2024 12:39 PM CDT 01/21/2024 12:40 PM CDT Aashish Sosa MD LAB_1 [facility] [address] [place] [address], [facility] * Basic Metabolic Panel (01/21/2024 12:27 PM CDT) Sodium 138 136 - 145 mmol/L 01/21/2024 5:04 PM CDT [facility] Potassium 3.9 3.5 - 5.1 mmol/L 01/21/2024 5:04 PM CDT [facility] Chloride 103 98 - 109 mmol/L 01/21/2024 5:04 PM CDT [facility] CO2 27 20 - 29 mmol/L 01/21/2024 5:04 PM CDT [facility] Anion Gap 8 6 - 16 mmol/L 01/21/2024 5:04 PM CDT [facility] Calcium 9.8 8.4 - 10.4 mg/dL 01/21/2024 5:04 PM CDT [facility] BUN 9 7 - 26 mg/dL 01/21/2024 5:04 PM CDT [facility] Creatinine 0.73 0.55 - 1.02 mg/dL 01/21/2024 5:04 PM CDT [facility] Glucose 95 70 - 100 mg/dL 01/21/2024 5:04 PM CDT [facility] Comment:The given reference range is for the fasting state. Non-fasting reference range for glucose is 70 - 180 mg/dL. GFR, Estimated >60 >60 mL/min/1.7 3m2 01/21/2024 5:04 PM CDT [facility] Hours Fasting 0.0 8 - 12 Hours 01/21/2024 5:04 PM CDT [facility] Blood Venipuncture / Unknown 01/21/2024 12:27 PM CDT 01/21/2024 12:27 PM CDT Aashish Sosa MD LAB_1 [facility] [address] [place] [address], [facility] * Magnesium (01/21/2024 12:27 PM CDT) Magnesium 2.2 1.6 - 2.6 mg/dL 01/21/2024 5:04 PM CDT [facility] Blood Venipuncture / Unknown 01/21/2024 12:27 PM CDT 01/21/2024 12:27 PM CDT Aashish Sosa MD LAB_1 [facility] [address] [place], [place] [phone] [place] [address] documented in this encounter Visit Diagnoses Diagnosis [...] type documented in this encounter Care Teams Cloth Winder Relationship Specialty Start Date End Date Aashish Sosa MD [address] [place] [address] PCP - General Family Practice 09/30/20 documented as of this encounter
--- OUTSIDE RECORDS SUMMARY | 2024-02-12 10:23 | XMS_ITS | Encounter Summary ---
Author Organization [employer] Address [address] [place] [address] Care Team Providers Care Cyber Security Instructor Name Role Phone Aashish Sosa MD Primary Care Provider [phone] Encounter Details Date Type Department Care Team (Latest Contact Info) Description 12/03/2023 Orders Only [facility] DEPARTMENT ProviderLissy [place] [address] Social History Tobacco Use Types Packs/Day Years [...] st Contact Info) Description 03/31/2024 11:00 AM SASH REPAIRER Appointment [facility] 300 [facility] [place] [address] Aashish Sosa MD [address] [place] [address] documented as of this encounter Procedures Procedure Name Priority Date/Time Associated Diagnosis Comments CT 12/03/2023 documented in this encounter Results * CT (12/03/2023) Anatomical Region Laterality Modality Other Interface Provider DUMMY/OTHER/AR documented in this encounter Visit Diagnoses Not on filedocumented in this encounter Care Teams Cyber Security Instructor Relationship Specialty Start Date End Date Aashish Sosa MD [address] [place] [address] PCP - General Family Practice 09/30/20 documented as of this encounter
--- OUTSIDE RECORDS SUMMARY | 2024-02-12 10:23 | XMS_ITS | Encounter Summary ---
Author Organization [employer] Address [address] [address] Care Team Providers Care Testing Projects Administrator Name Role Phone Aashish Sosa MD Primary Care Provider [phone] Encounter Details Date Type Department Care Team (Late Contact Info) Description 01/21/2024 12:05 PM CDT Lab Visit [facility] 300 [facility] [place] [id number] Muscle cramp; Dysuria; Interstitial cystitis Social History [...] (Late Contact Info) Description 03/31/2024 11:00 AM DEMONSTRATOR ELECTRIC GAS APPLIANCES Appointment [facility] 300 [facility] [place] [address] Aashish Sosa MD [address] [place] [address] [place] [id number] documented as of this encounter Procedures Procedure [...] - 145 mmol/L 01/21/2024 5:04 PM CDT [facility] Potassium 3.9 3.5 - 5.1 mmol/L 01/21/2024 5:04 PM CDT [facility] Chloride 103 98 - 109 mmol/L 01/21/2024 5:04 PM CDT [facility] CO2 27 20 - 29 mmol/L 01/21/2024 5:04 PM CDT [facility] Anion Gap 8 6 - 16 mmol/L 01/21/2024 5:04 PM CDT [facility] Calcium 9.8 8.4 - 10.4 mg/dL 01/21/2024 5:04 PM CDT [facility] BUN 9 7 - 26 mg/dL 01/21/2024 5:04 PM CDT [facility] Creatinine 0.73 0.55 - 1.02 mg/dL 01/21/2024 5:04 PM CDT [facility] Glucose 95 70 - 100 mg/dL 01/21/2024 5:04 PM CDT [facility] Comment:The given reference range is for the fasting state. Non-fasting reference range for glucose is 70 - 180 mg/dL. GFR, Estimated >60 >60 mL/min/1.7 3m2 01/21/2024 5:04 PM CDT [facility] Hours Fasting 0.0 8 - 12 Hours 01/21/2024 5:04 PM CDT [facility] Blood Venipuncture / Unknown 01/21/2024 12:27 PM CDT 01/21/2024 12:27 PM CDT Aashish Sosa MD LAB_1 [facility] [address] * Magnesium (01/21/2024 12:27 PM CDT) [facility] Magnesium 2.2 1.6 - 2.6 mg/dL 01/21/2024 5:04 PM CDT [facility] Blood Venipuncture / Unknown 01/21/2024 12:27 PM CDT 01/21/2024 12:27 PM CDT Aashish Sosa MD LAB_1 Performing Organization Address [facility] Co de Phone Number [facility] [address] * (ABNORMAL) Complete Blood Count-W/Diff (01/21/2024 12:20 PM CDT) [facility] WBC 11.9(H) 3.5 - 10.5 x10(9)/L 01/21/2024 1:15 PM CDT [facility] RBC 4.78 3.90 - 5.03 x10(12)/L 01/21/2024 1:15 PM CDT [facility] Hemoglobin 12.9 12.0 - 15.5 g/dL 01/21/2024 1:15 PM CDT [facility] HCT 41.7 34.9 - 44.5 % 01/21/2024 1:15 PM CDT [facility] MCV 87.2 80.0 - 100.0 fL 01/21/2024 1:15 PM CDT [facility] MCH 27.0(L) 27.6 - 33.3 pg 01/21/2024 1:15 PM CDT [facility] MCHC 30.9(L) 31.5 - 35.2 g/dL 01/21/2024 1:15 PM CDT [facility] RDW 14.7 11.9 - 15.5 % 01/21/2024 1:15 PM CDT [facility] Platelets 192 150 - 450 x10(9)/L 01/21/2024 1:15 PM CDT [facility] Automated NRBC 0 <=0 /100 WBC 01/21/2024 1:15 PM CDT [facility] Neutrophil Absolute 8.3(H) 1.7 - 7.0 10(9)/L 01/21/2024 1:15 PM CDT [facility] Lymphocyte Absolute 2.5 1.0 - 4.8 10(9)/L 01/21/2024 1:15 PM CDT [facility] Monocyte Absolute 0.7 0.2 - 0.9 10(9)/L 01/21/2024 1:15 PM CDT [facility] Eosinophil Absolute 0.3 0.0 - 0.5 10(9)/L 01/21/2024 1:15 PM CDT [facility] Basophil Absolute 0.1 0.0 - 0.3 10(9)/L 01/21/2024 1:15 PM CDT [facility] Immature Granulocyte % 0.6(H) 0.0 - 0.5 % 01/21/2024 1:15 PM CDT [facility] Blood Venipuncture / Unknown 01/21/2024 12:20 PM CDT 01/21/2024 1:13 PM CDT Aashish Sosa MD LAB_1 [facility] [address] [place] [address], [facility] documented in this encounter Visit Diagnoses Diagnosis Muscle cramp Cramp of limb Dysuria Interstitial cystitis Chronic interstitial cystitis documented in this encounter Care Teams Testing Projects Administrator Relationship Specialty Start Date End Date Aashish Sosa MD [address] [place] [address] [place] [address] PCP - General Family Practice 09/30/20 documented as of this encounter
--- OUTSIDE RECORDS SUMMARY | 2024-02-12 10:23 | XMS_ITS | Encounter Summary ---
Author Organization [employer] Address [address], [place] [address] Care Team Providers Care Medical Technologist Chief Name Role Phone Aashish Sosa MD Primary Care Provider [phone] Reason for Visit * Reason Comments Refill baclofen (LIORESAL) 10 MG tablet [Pharmacy Med Name: BACLOFEN 10 MG TABS 10 Tablet] Encounter Details Date Type Department Care Team (Late st Contact Info) Description 01/23/2024 [facility] 300 [place] [address] Aashish Sosa MD [address] [facility] [place] [phone] Refill (baclofen (LIORESAL) 10 MG tablet [Pharmacy [...] (with AASHISH SOSA) Next scheduled visit: None [employer] Embedded Refills, Reference: [id number], 01/23/2024 1:16:52 PM CDT, Solitario: ZAK [facility] Services - Primary Care [[id number]] ([id number]) documented in this encounter Plan of Treatment Upcoming Encounters Date Type Department Care Team (Late st Contact Info) Description 03/31/2024 11:00 AM NURSING DIRECTOR Appointment [facility] Medicine 300 [facility] [place] [address] Aashish Sosa MD [address] [place] [phone] documented as of this encounter Visit Diagnoses Not on filedocumented in this encounter Care Teams Medical Technologist Chief Relationship Specialty Start Date End Date Aashish Sosa MD [address] [place] [address] PCP - General Family Practice 09/30/20 documented as of this encounter
--- OUTSIDE RECORDS SUMMARY | 2024-02-12 10:23 | XMS_ITS | Encounter Summary ---
Author Organization [facility] Address [address] [place] [address] Care Team Providers Care Inside Sales Executive Name Role Phone Aashish Sosa MD Primary Care Provider [phone] Encounter Details Date Type Department Care Team (Late Contact Info) Description 01/29/2024 E-Visit [facility] - Urology [address] [facility] [place], [place] [address] Mychart, [place] [address] Social History Tobacco Use Types Packs/Day Years [...] (Late Contact Info) Description 03/31/2024 11:00 AM ELECTROPLATING LABORER Appointment [facility] 300 [facility] [place] [address] Aashish Sosa MD [address] [place] [address] documented as of this encounter Visit Diagnoses Not on filedocumented in this encounter Care Teams Inside Sales Executive Relationship Specialty Start Date End Date Aashish Sosa MD NPI: [id number] [place] [address] [place] [address] PCP - General Family Practice 09/30/20 documented as of this encounter
--- OUTSIDE RECORDS SUMMARY | 2024-02-12 10:23 | XMS_ITS | Encounter Summary ---
Author Organization [employer] Address [address] [place] [address] Care Team Providers Care Book Publisher Name Role Phone Aashish Sosa MD Primary Care Provider [phone] Reason for Visit * Reason Comments Refill Encounter Details Date Type Department Care Team (Late st Contact Info) Description 02/05/2024 Refill [place] [address] [place] [address] Aashish Sosa MD [address] [place], [place] [phone] Refill Social History Tobacco Use Types Packs/Day [...] as of this encounter Nursing Notes * Silvia Garrett RN - 02/11/2024 1:18 PM CDT Patient calling, states she is unable to use azelastine spray because in [place]. States PCP has always given her prednisone, requesting refill. Will follow up with ENT for further recommendations. Requested Prescriptions Pending Prescriptions Disp Refills predniSONE (DELTASONE) 10 MG tablet 10 Tablet 0 Sig: Take 1 Tablet (10 mg) by mouth daily. Future Appointments Date Time Provider Department Center 03/31/2024 11:00 AM Aashish Sosa MD [facility] * Mala De Leon PA-C - 02/06/2024 12:04 PM CDT Please inform patient that Dr. Sosa is out of clinic the rest of the week. Prednisone refill is not appropriate - appointment would be needed. She should continue to use the azelastine nasal spray in additional to the nasal saline spray. She can certainly try an OTC steroid nasal spray (Flonase ornasacort) Mala De Leon PA-C 12:06 PM 02/06/2024 * Josefina Melendez RN - 02/05/2024 1:11 PM CDT Further Assistance Needed on Refill from Clinician RN reviewed. Signed order needed. Medication not on Organizational Ambulatory Medication List Patient requesting refill of prednisone for chronic sinusitis. Pt is working on getting appointmentwith ENT. Review pended order for accuracy and sign if appropriate and only call if there's an issue Requested Prescriptions Pending Prescriptions Disp Refills predniSONE (DELTASONE) 10 MG tablet 10 Tablet 0 Sig: Take 1 Tablet (10 mg) by mouth daily. Of note, patient stated she had a mammogram at [facility] and needs to have a follow up one. Pt wants to make sure PCP will be able to review mammogram results once completed which is on 02/12/24 in [place]. Pt will fill out form to release the mammogram. Advised can see initial mammogram from [facility]. documented in this encounter Plan of Treatment Upcoming Encounters Date Type Department Care Team (Late st Contact Info) Description 03/31/2024 11:00 AM HOIST OPERATOR Appointment [facility] 300 [facility] [place] [address] Aashish Sosa MD [address] [place] [address] documented as of this encounter Visit Diagnoses Diagnosis Other chronic sinusitis documented in this encounter Care Teams Book Publisher Relationship Specialty Start Date End Date Aashish Sosa MD [address] [place] [address] PCP - General Family Practice 09/30/20 documented as of this encounter
--- OUTSIDE RECORDS SUMMARY | 2024-02-12 10:23 | XMS_ITS | Encounter Summary ---
Author Organization [employer] Address [address], [place] [address] Care Team Providers Care Giving Officer Name Role Phone Aashish Sosa MD Primary Care Provider Reason for Visit * Reason Onset Date Comments Refill 01/21/2024 Encounter Details Date Type Department Care Team (Late st Contact Info) Description 01/21/2024 Refill [facility] Medicine 300 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
--- OUTSIDE RECORDS SUMMARY | 2024-02-12 10:23 | XMS_ITS | Encounter Summary ---
Author Organization [employer] Address [address], [place] [address] Care Team Providers Care Manual Tester Name Role Phone Aashish Sosa MD Primary Care Provider [phone] Reason for Visit * Reason Comments Questions Encounter Details Date Type Department Care Team (Late st Contact Info) Description 12/20/2023 Telephone [facility] [address] [place] [address] Aashish Sosa MD [address] [place] [address] [address] [place], [place] [phone] Questions Social History Tobacco Use Types Packs/Day [...] 1:17 AM CDT Clinician: Review and advise Patient/daycare assistant request: Change appointment type. Specific Request: [...] st Contact Info) Description 03/31/2024 11:00 AM JAWBONE PULLER Appointment [facility] 300 [facility] [place] [address] Aashish Sosa MD [address] [place] [address] documented as of this encounter Visit Diagnoses Not on filedocumented in this encounter Care Teams Manual Tester Relationship Specialty Start Date End Date Aashish Sosa MD [address] [place] [address] [place] [address] PCP - General Family Practice 09/30/20 documented as of this encounter
--- OUTSIDE RECORDS SUMMARY | 2024-02-12 10:23 | XMS_ITS | Encounter Summary ---
Author Organization [employer] Address [address], [place] [address] Care Team Providers Care Auto Body Painter Name Role Phone Aashish Sosa MD Primary Care Provider [phone] Reason for Visit * Reason Comments Refill baclofen (LIORESAL) 10 MG tablet [Pharmacy Med Name: BACLOFEN 10 MG TABS 10 Tablet] Encounter Details Date Type Department Care Team (Late st Contact Info) Description 01/23/2024 [facility] 300 [facility] [place] [address] Aashish Sosa MD 300 [facility] [place] [phone] Refill (baclofen (LIORESAL) 10 MG tablet [Pharmacy [...] (with AASHISH SOSA) Next scheduled visit: None [employer] Embedded Refills, Reference: [id number], 01/23/2024 1:17:24 PM CDT, Pool: ZAK Refill [facility] Services - Primary Care [[id number]] ([id number]) documented in this encounter Plan of Treatment Upcoming Encounters Date Type Department Care Team (Late st Contact Info) Description 03/31/2024 11:00 AM CHICK GRADER Appointment [facility] Medicine [address] [place] [address] [place] [address] Aashish Sosa MD [address] [place] [address] [place] [address] documented as of this encounter Visit Diagnoses Not on filedocumented in this encounter Care Teams Auto Body Painter Relationship Specialty Start Date End Date Aashish Sosa MD [address] [place] [address] PCP - General Family Practice 09/30/20 documented as of this encounter
--- OUTSIDE RECORDS SUMMARY | 2024-02-12 10:23 | XMS_ITS | Encounter Summary ---
Author Organization [employer] Address [address], [place] [address] Care Team Providers Care Hazardous Material Technician Name Role Phone Aashish Sosa MD Primary Care Provider [phone] Reason for Visit * Reason Onset Date Comments Phone Visit 12/24/2023 Medication refil l, nasal congestion Encounter Details Date Type Department Care Team (Latest Contact Info) Description 12/24/2023 10:00 AM CDT [facility] [address] [place] [address] Aashish Sosa MD 300 [place], [place] [address] Chronic pain syndrome (Primary Dx); Chronic bilateral [...] up with me in 1 month. Aashish Ssoa MD documented in this encounter Plan of Treatment Upcoming Encounters Date Type Department Care Team (Late st Contact Info) Description 03/31/2024 11:00 AM HEART SURGEON Appointment [facility] 300 [facility] [place] [address] Aashish Sosa MD 300 [place] [address] documented as of this encounter Visit Diagnoses Diagnosis Chronic pain syndrome- Primary Chronic bilateral low back pain with right-sided sciatica (HRC) Primary osteoarthritis of right knee Primary localized osteoarthrosis, lower leg Chronic rhinitis documented in this encounter Care Teams Hazardous Material Technician Relationship Specialty Start Date End Date Aashish Sosa MD [address] [place] [address] [place] [address] PCP - General Family Practice 09/30/20 documented as of this encounter
--- OUTSIDE RECORDS SUMMARY | 2024-02-12 10:23 | XMS_ITS | Encounter Summary ---
Author Organization [employer] Address [address], [place] [address] Care Team Providers Care Sheriffs Officer Name Role Phone Aashish Sosa MD Primary Care Provider [phone] Reason for Visit * Reason Comments Refill levothyroxine (SYNTH ROID) 112 MCG tablet [Pharmacy Med Name: LEVOTHYROXINE SODIUM 112 MC 112 Tablet] Encounter Details Date Type Department Care Team (Late st Contact Info) Description 01/23/2024 Refill [facility] Medicine 300 [facility] [address] Aashish Sosa MD 300 [place], [place] [phone] Refill (levothyroxine (SYNTHROID) 112 MCG tablet [Pharmacy [...] visit: None TSH: 0.76 mIU/L on 10/29/2023 [facility] Embedded Refills, Reference: [id number], 01/23/2024 1:16:52 PM CDT, Pool: ZAK Reflj Centralized Services - Primary Care [[id number]] ([id number]) documented in this encounter Plan of Treatment Upcoming Encounters Date Type Department Care Team (Late st Contact Info) Description 03/31/2024 11:00 AM REGISTERED SALES ASSISTANT Appointment [address] [place] [address] Aashish Sosa MD [address] [place] [address] documented as of this encounter Visit Diagnoses Not on filedocumented in this encounter Care Teams Sheriffs Officer Relationship Specialty Start Date End Date Aashish Sosa MD [address] [place] [address] PCP - General Family Practice 09/30/20 documented as of this encounter
--- OUTSIDE RECORDS SUMMARY | 2024-02-12 10:23 | XMS_ITS | Encounter Summary ---
Author Organization [employer] Address [address] [place] [address] Care Team Providers Care Wire Turning Machine Operator Name Role Phone Aashish Sosa MD Primary Care Provider [phone] Reason for Visit * Reason Comments Follow-up, NOS Entered automaticall y based on patient selection in [employer]. Encounter Details Date Type Department Care Team (Late st Contact Info) Description 01/23/2024 10:15 PM CDT E-Visit [address] [place] [address] Aashish Sosa MD [address] [place] [id number] Chief Comp: Follow-up, NOS Social History Tobacco [...] and advise and Patient is expecting a [employer] message from [employer] Patient/health care consultant request: Input needed: lab results Specific Request: Patient has questions regarding recent lab results and MRI results. Please see e-visit for additional details and advise. documented in this encounter Plan of Treatment Upcoming Encounters Date Type Department Care Team (Late st Contact Info) Description 03/31/2024 11:00 AM LEATHER GRADER Appointment [address] [place] [address] Aashish Sosa MD [address] [place] [address] documented as of this encounter Visit Diagnoses Not on filedocumented in this encounter Care Teams Wire Turning Machine Operator Relationship Specialty Start Date End Date Aashish Sosa MD [address] [place] [address] [place] [address] PCP - General Family Practice 09/30/20 documented as of this encounter
--- OUTSIDE RECORDS SUMMARY | 2024-02-12 10:23 | XMS_ITS | Encounter Summary ---
Author Organization [employer] Address [address] [place] [address] Care Team Providers Care Pan Greaser Name Role Phone Aashish Sosa MD Primary Care Provider [phone] Encounter Details Date Type Department Care Team (Latest Contact Info) Description 12/03/2023 Orders Only [facility] DEPART[facility] ProviderLissy [place] [address] Social History Tobacco Use Types Packs/Day Years [...] st Contact Info) Description 03/31/2024 11:00 AM DRYING UNIT FELTING MACHINE OPERATOR Appointment [facility] Medicine 300 [facility] [place] [address] Aashish Sosa MD [address] [place] [address] documented as of this encounter Procedures Procedure Name Priority Date/Time Associated Diagnosis Comments CT 12/03/2023 documented in this encounter Results * CT (12/03/2023) Anatomical Region Laterality Modality Other Interface Provider DUMMY/OTHER/AR documented in this encounter Visit Diagnoses Not on filedocumented in this encounter Care Teams Pan Greaser Relationship Specialty Start Date End Date Aashish Sosa MD [address] [place] [address] PCP - General Family Practice 09/30/20 documented as of this encounter
--- OUTSIDE RECORDS SUMMARY | 2024-02-12 10:23 | XMS_ITS | Encounter Summary ---
Author Organization [employer] Address [address] [address] Care Team Providers Care Instrumentation And Control Technician Name Role Phone Aashish Sosa MD Primary Care Provider [phone] Reason for Visit * Reason Comments Dental Concerns Any abx? Encounter Details Date Type Department Care Team (Late st Contact Info) Description 01/30/2024 2:45 PM CDT E-Visit [facility] 300 [facility] [place] [phone] Aashish Sosa MD 300 [facility] [place] [phone] Chief Comp: Dental Concerns Social History Tobacco [...] Review and advise, Patient is expecting a [employer] message from [employer], and Bill for E-Visit as appropriate Patient/foster care therapist request: Input needed: Dental issue Specific Request: Pt requesting pcp to review MyChart note and advise if any antibiotic is recommended Last pcp visit 01/21/24. * Za Austin - 01/31/2024 10:16 AM CDT Patient notes symptoms in their message. Please review and respond to patient. RN: Review Cherry Birdhart message. If appointment is necessary and you are unable to reach the patient respond to message using [email or web address] documented in this encounter Plan of Treatment Upcoming Encounters Date Type Department Care Team (Late st Contact Info) Description 03/31/2024 11:00 AM COMMERCIAL CENSUS TAKER Appointment [facility] 300 [facility] [place] [address] Aashish Sosa MD [address] [place] [address] documented as of this encounter Visit Diagnoses Not on filedocumented in this encounter Care Teams Instrumentation And Control Technician Relationship Specialty Start Date End Date Aashish Sosa MD [address] [place] [address] [place] [address] PCP - General Family Practice 09/30/20 documented as of this encounter
--- OUTSIDE RECORDS SUMMARY | 2024-02-12 10:23 | XMS_ITS | Encounter Summary ---
Author Organization [employer] [facility] Address [address] [place] [address] Care Team Providers Care Mill And Coal Transport Operator Name Role Phone Aashish Sosa MD Primary Care Provider Reason for Visit * Reason Comments QUESTIONS, GENERAL Entered automaticall y based on patient selection in [employer]. Encounter Details Date Type Department Care Team (Late st Contact Info) Description 02/07/2024 1:25 PM CDT E-Visit [address] [phone] Aashish Sosa MD [address] [place] [phone] Chief Comp: QUESTIONS, GENERAL Social History Tobacco Use Types Packs/Day Years [...] as of this encounter Nursing Notes * Alyse Orta - 02/11/2024 1:39 PM CDT See refill encounter from 02/04. documented in this encounter Plan of Treatment Upcoming Encounters Date Type Department Care Team (Late st Contact Info) Description 03/31/2024 11:00 AM DONATION WORKER Appointment [facility] 300 [facility] [place] [address] Aashish Sosa MD [address] [place] [address] documented as of this encounter Visit Diagnoses Not on filedocumented in this encounter Care Teams Mill And Coal Transport Operator Relationship Specialty Start Date End Date Aashish Sosa MD [address] [place] [address] [place] [address] PCP - General Family Practice 09/30/20 documented as of this encounter
--- OUTSIDE RECORDS SUMMARY | 2024-02-12 10:23 | XMS_ITS | Encounter Summary ---
Author Organization [employer] Address [address] [place] [address] Care Team Providers Care Printed Circuit Board Preassembler Name Role Phone Aashish Sosa MD Primary Care Provider [phone] Encounter Details Date Type Department Care Team (Late st Contact Info) Description 12/24/2023 Telephone [facility] [address] [place] [address] Aashish Sosa MD [address] [place] [address] [place] [address] Social History Tobacco Use Types [...] of this encounter Nursing Notes * Aashish Soas MD - 12/24/2023 5:19 PM CDT Appointment completed 12/24/23. WK. * Josefina Melendez RN - 12/24/2023 12:22 PM CDT Clinician: Review and advise and Patient is expecting a call back from [facility] Patient/career development engineer request: Appointment Work In: missed appointment today [...] st Contact Info) Description 03/31/2024 11:00 AM MULE OPERATOR Appointment [facility] Medicine 300 [facility] [place] [address] Aashish Sosa MD [address] [place] [address] documented as of this encounter Visit Diagnoses Not on filedocumented in this encounter Care Teams Printed Circuit Board Preassembler Relationship Specialty Start Date End Date Aashish Sosa MD [address] [place] [address] PCP - General Family Practice 09/30/20 documented as of this encounter
--- OUTSIDE RECORDS SUMMARY | 2024-02-12 10:23 | XMS_ITS | Encounter Summary ---
Author Organization [employer] Address [address] [place] [address] Care Team Providers Care Head Silverman Name Role Phone Aashish Sosa MD Primary Care Provider [phone] Encounter Details Date Type Department Care Team (Latest Contact Info) Description 02/03/2024 Orders Only [facility] ProviderLissy [place] [address] Social History Tobacco Use Types Packs/Day Years [...] st Contact Info) Description 03/31/2024 11:00 AM TELEPHONE SEX WORKER Appointment [facility] Medicine [address] [place] [address] [place] [address] Aashish Sosa MD [address] [place] [address] documented as of this encounter Procedures Procedure Name Priority Date/Time Associated Diagnosis Comments MAMMOGRAM SC 02/03/2024 documented in this encounter Results * MAMMOGRAM SC (02/03/2024) Interface Provider DUMMY/OTHER/AR documented in this encounter Visit Diagnoses Not on filedocumented in this encounter Care Teams Head Silverman Relationship Specialty Start Date End Date Aashish Sosa MD [address] [place] [address] PCP - General Family Practice 09/30/20 documented as of this encounter
--- OUTSIDE RECORDS SUMMARY | 2024-02-12 10:24 | XMS_ITS | Encounter Summary ---
Author Organization [employer] Address [address] [place] [address] Care Team Providers Care Arborist Climber Name Role Phone Aashish Sosa MD Primary Care Provider [phone] Reason for Visit * Reason Comments Refill Oxycodone Encounter Details Date Type Department Care Team (Late st Contact Info) Description 11/22/2023 Refill [facility] Medicine 300 [facility] [place] [phone] Aashish Sosa MD [address] [place] [address] Refill (Oxycodone) Social History Tobacco Use Types [...] Center 01/21/2024 11:00 AM Aashish Sosa MD [facility] Review pended order for accuracy [...] st Contact Info) Description 03/31/2024 11:00 AM ROUTE SALES MANAGER Appointment [facility] Medicine [address] [place] [address] [place] [address] Aashish Sosa MD [address] [place] [address] [place] [address] documented as of this encounter Visit Diagnoses Diagnosis Chronic bilateral low back pain with right-sided sciatica (HRC) documented in this encounter Care Teams Arborist Climber Relationship Specialty Start Date End Date Aashish Sosa MD [address] [place] [address] [place] [address] PCP - General Family Practice 09/30/20 documented as of this encounter
--- OUTSIDE RECORDS SUMMARY | 2024-02-12 10:24 | XMS_ITS | Encounter Summary ---
Author Organization [employer] Address [address], [place] [address] Care Team Providers Care Manager Power Name Role Phone Aashish Sosa MD Primary Care Provider [phone] Reason for Visit * Reason Comments ERRONEOUS ENTRY Encounter Details Date Type Department Care Team (Late Contact Info) Description 08/02/[address] [place] [address] Aashish Sosa MD [address] [place] [address] [place] [address] ERRONEOUS ENTRY Social History Tobacco Use Types [...] Levi - 08/02/2023 1:57 PM CST error R SCHOOL PROGRAM ASSISTANT documented in this encounter Plan of Treatment Upcoming Encounters Date Type Department Care Team (Late Contact Info) Description 03/31/2024 11:00 AM AFTER SCHOOL PROGRAM ASSISTANT Appointment [address] [place] [address] Aashish Sosa MD [address] [place] [address] documented as of this encounter Visit Diagnoses Not on filedocumented in this encounter Care Teams Manager Power Relationship Specialty Start Date End Date Aashish Sosa MD [address] [place] [address] PCP - General Family Practice 09/30/20 documented as of this encounter
--- OUTSIDE RECORDS SUMMARY | 2024-02-12 10:24 | XMS_ITS | Encounter Summary ---
Author Organization [employer] Address [address] [place] [address] Care Team Providers Care Gun Profiler Name Role Phone Aashish Sosa MD Primary Care Provider [phone] Reason for Visit * Reason Comments Order Questions Encounter Details Date Type Department Care Team (Late st Contact Info) Description 11/25/2023 Telephone [facility] Medicine 300 [facility] [place]zaiah [place] [phone] Aashish Sosa MD [address] [facility] [place] [phone] Order Questions Social History Tobacco Use Types [...] 2:28 PM CDT Spoke to Sara at [facility] and clarified what she had said regarding a sinus CT scan. Sara stated they have never seen ordered as CT Fusion but they will go ahead and get a CT scan done of the sinuses in the head region. * Emmie Weiner 11/25/2023 2:02 PM CDT Other Questions/Concerns/FYI Is this a symptom? No What is your question or concern? [facility] calling needsa call back unsure what CT [...] st Contact Info) Description 03/31/2024 11:00 AM RETAIL SALES ASSOCIATE SEASONAL Appointment [facility] Medicine 300 [facility] [place] [address] Aashish Sosa MD [address] [place] [address] documented as of this encounter Visit Diagnoses Not on filedocumented in this encounter Care Teams Gun Profiler Relationship Specialty Start Date End Date Aashish Sosa MD [address] [place] [address] PCP - General Family Practice 09/30/20 documented as of this encounter
--- OUTSIDE RECORDS SUMMARY | 2024-02-12 10:24 | XMS_ITS | Encounter Summary ---
Author Organization [employer] Address [address], [place] [address] Care Team Providers Care Wire Stripper Name Role Phone Aashish Sosa MD Primary Care Provider [phone] Reason for Visit * Reason Comments Refill gabapentin (NEURONTI N) 300 MG capsule [Pharmacy Med Name: GABAPENTIN 300 MG CAPS 300 Capsule] Encounter Details Date Type Department Care Team (Late st Contact Info) Description 11/02/2023 Refill [facility] 300 [place] [address] Aashish Sosa MD 300 [facility] [phone] Refill (gabapentin (NEURONTIN) 300 MG capsule [Pharmacy [...] (with AASHISH SOSA) Next scheduled visit: None [employer] [facility] Embedded Refills, Reference: [id number], 11/02/2023 11:58:59 AM CDT, Solitario: ZAK Refill Centralized Services - Primary Care [[id number]] ([id number]) documented in this encounter Plan of Treatment Upcoming Encounters Date Type Department Care Team (Late st Contact Info) Description 03/31/2024 11:00 AM CLINICAL CYTOGENETICS DIRECTOR Appointment [address] [place] [address] Aashish Sosa MD [address] [place] [address] [place] [address] documented as of this encounter Visit Diagnoses Not on filedocumented in this encounter Care Teams Wire Stripper Relationship Specialty Start Date End Date Aashish Sosa MD [address] [place] [address] PCP - General Family Practice 09/30/20 documented as of this encounter
--- OUTSIDE RECORDS SUMMARY | 2024-02-12 10:24 | XMS_ITS | Encounter Summary ---
Author Organization [employer] Address [address] [address] Care Team Providers Care Manager Mountain Name Role Phone Aashish Sosa MD Primary Care Provider [phone] Reason for Visit * Reason Comments Pharmacy methocarbamol (ROBAX IN) 750 MG tablet Encounter Details Date Type Department Care Team (Late st Contact Info) Description 12/02/2023 Telephone [facility] 300 [facility] [place] [phone] Aashish Sosa MD [address] [place] [phone] Pharmacy (methocarbamol (ROBAXIN) 750 MG tablet ) [...] to CSS or change orders if needed Patient/career resource technician request: Medication question Specific Request: Per call [...] st Contact Info) Description 03/31/2024 11:00 AM MUCK OPERATOR Appointment [facility] 300 [facility] [place] [address] Aashish Sosa MD [address] [place] [address] documented as of this encounter Visit Diagnoses Not on filedocumented in this encounter Care Teams Manager Mountain Relationship Specialty Start Date End Date Aashish Sosa MD [address] [place] [phone] PCP - General Family Practice 09/30/20 documented as of this encounter
--- OUTSIDE RECORDS SUMMARY | 2024-02-12 10:24 | XMS_ITS | Encounter Summary ---
Author Organization [employer] Address [address] [address] Care Team Providers Care Machine Ii Coremaker Name Role Phone Aashish Sosa MD Primary Care Provider [phone] Reason for Referral * Procedure/Equipment (Routine) - Incomplete Specialty Diagnoses / Procedures Referred By Contkierra t Referred To Contact Diagnoses Encounter for screening mammogram for malignant neoplasm of breast Procedures MM Mammogram Screening Bilat Aashish Dominique MD [address] [place] [address] [place] [address] Referral ID Status Reason Start Date Expiration Date V isits Requested Visits Authorized [id number] Incomplete 11/25/2023 02/23/2025 1 1 Reason for Visit * Reason Comments ORDERS Encounter Details Date Type Department Care Team (Late st Contact Info) Description 11/22/2023 Telephone [facility] 300 [facility] [place] [phone] Aashish Sosa MD [address] [phone] ORDERS Social History Tobacco Use Types Packs/Day [...] and advised that we just spoke with [facility] and they do have the orders so she can call and make appointment. * Alaina Dillon RN - 11/25/2023 1:53 PM CDT Pt states she called [facility] and no faxed orders have been received. Routing to [facility] to follow up. * Analilia Anthony MA [...] WO IV Cont orders and faxed to [facility] [phone]. Ordered mammogram, printed, and faxed to [facility] [phone] * Subha Gates RN - 11/22/2023 10:50 AM CDT Patient wonders about having imaging orders sent to [facility] near her to have completed instead of doing at [facility]. Requesting the orders for CT Abd Pelvis W IV Cont and CT Fusion Sinus WO IV Cont that were ordered back in April to be sent to [facility]. Patient does not have the fax number, but the phone number for [facility] is [phone]. She is also due for a mammogram and wonders if there is way to have this ordered to [facility] as well? documented in this encounter Plan of Treatment Upcoming Encounters Date Type Department Care Team (Late st Contact Info) Description 03/31/2024 11:00 AM SENIOR PLANNER Appointment [facility] 300 [facility] [place] [address] Aashish Sosa MD [address] [place] [address] Scheduled Orders Name Type Priority Associated Diagnoses Orde r Schedule MM Mammogram Screening Bilat W CAD Imaging New Routine Encounter for screening mammogram for malignant neoplasm of breast Expected: 11/25/2023 (Approximate), Expires: 11/24/2024 documented as of this encounter Visit Diagnoses Diagnosis Encounter for screening mammogram for malignant neoplasm of breast- Primary Other screening mammogram documented in this encounter Care Teams Machine Ii Coremaker Relationship Specialty Start Date End Date Aashish Sosa MD [address] [place] [address] PCP - General Family Practice 09/30/20 documented as of this encounter
--- OUTSIDE RECORDS SUMMARY | 2024-02-12 10:24 | XMS_ITS | Encounter Summary ---
Author Organization [employer] Address [address], [place] [address] Care Team Providers Care Time Motion Analyst Name Role Phone Aashish Sosa MD Primary Care Provider [phone] Reason for Visit * Reason Comments Care Coordination Encounter Details Date Type Department Care Team (Late Contact Info) Description 03/11/2018 Care Conference [facility] [place] [address] Aashish Sosa MD [address] [place] [address] [address] [place]ona [place] [id number] Social History Tobacco Use Types Packs/Day Years [...] (Late Contact Info) Description 03/31/2024 11:00 AM HEALTH UNIT SUPERVISOR Appointment [facility] Medicine 300 [facility] [place] [address] Aashish Sosa MD [address] [place] [address] [place] [address] documented as of this encounter Visit Diagnoses Not on filedocumented in this encounter Care Teams Time Motion Analyst Relationship Specialty Start Date End Date Aashish Sosa MD [address] [place] [address] PCP - General Family Practice 09/30/20 documented as of this encounter
--- OUTSIDE RECORDS SUMMARY | 2024-02-12 10:24 | XMS_ITS | Encounter Summary ---
Author Organization [employer] Address [address], [place] [address] Care Team Providers Care Green Building Engineer Name Role Phone Aashish Sosa MD Primary Care Provider Reason for Referral * Procedure/Equipment (Routine) - New Request Specialty Diagnoses / Procedures Referred By Contkierra t Referred To Contact Diagnoses Chronic bilateral low back pain with right-sided sciatica (HRC) Idiopathic peripheral neuropathy Unsteadiness Procedures Wheelchair - Manual Aashish Sosa MD [address] [place] [address] [place] [address] Referral ID Status Reason Start Date Expiration Date V isits Requested Visits Authorized [id number] New Request 11/14/2023 05/12/2024 1 1 Reason for Visit * Reason Comments Dme Supply Encounter Details Date Type Department Care Team (Late st Contact Info) Description 11/14/2023 Telephone [facility] Medicine 300 [facility] [place] [phone] Aashish Sosa MD [address] [place] [phone] Dme Supply Social History Tobacco Use Types [...] 3:59 PM CDT Wheelchair order faxed to [facility] at [phone] * Aashish Sosa MD - 11/14/2023 3:52 PM CDT DME order signed for manual wheelchair. Thank you. WK. * Suzi Monsivais CNA - 11/14/2023 2:50 PM CDT Clinician: Route to [facility] Patient/manager medicare request: New Order: DME wheelchair Specific Request: [facility] requesting order for manual wheel chair due to mobility issues. Order pended, please sign if appropriate documented in this encounter Plan of Treatment Upcoming Encounters Date Type Department Care Team (Late st Contact Info) Description 03/31/2024 11:00 AM CERTIFIED HYPERBARIC TECHNICIAN Appointment [facility] 300 [facility] [place] [address] Aashish Sosa MD [address] [place] [address] [place] [address] documented as of this encounter Visit Diagnoses Diagnosis Chronic bilateral low back pain with right-sided sciatica (HRC)- Primary Idiopathic peripheral neuropathy Unspecified hereditary and idiopathic peripheral neuropathy Unsteadiness Abnormality of gait documented in this encounter Care Teams Green Building Engineer Relationship Specialty Start Date End Date Aashish Sosa MD [address] [place] [address] [place] [address] PCP - General Family Practice 09/30/20 documented as of this encounter
--- OUTSIDE RECORDS SUMMARY | 2024-02-12 10:24 | XMS_ITS | Encounter Summary ---
Author Organization [employer] Address [address], [place] [address] Care Team Providers Care Certification Engineer Name Role Phone Aashish Sosa MD Primary Care Provider Reason for Visit * Reason Comments Follow-up Encounter Details Date Type Department Care Team (Late st Contact Info) Description 11/25/[address] [place] [phone] Aashish Sosa MD [address] [place] [address] [address] [place]ona [place] [phone] Follow-up Social History Tobacco Use Types Packs/Day [...] st Contact Info) Description 03/31/2024 11:00 AM LABORER CONCRETE PAVING Appointment [address] [place] [address] Aashish Sosa MD [address] [place] [address] documented as of this encounter Visit Diagnoses Not on filedocumented in this encounter Care Teams Certification Engineer Relationship Specialty Start Date End Date Aashish Sosa MD [address] [place] [address] [place] [address] PCP - General Family Practice 09/30/20 documented as of this encounter
--- NOTE | 2024-02-12 10:45 | CRLHL7_ITS ---
For Patients: As a result of the Cures Act, medical imaging exams and procedure reports are released immediately into your electronic medical record. You may view this report before your referring provider. If you have questions, please contact your health care provider. RIGHT DIAGNOSTIC MAMMOGRAM WITH COMPUTER-AIDED DETECTION AND TOMOSYNTHESIS RIGHT BREAST ULTRASOUND CLINICAL HISTORY: RIGHT breast mass/asymmetry. COMPARISON: 02/03/2024. TECHNIQUE: Digital RIGHT mammogram in two projections. Computer-aided detection and tomosynthesis used in this interpretation. Real-time ultrasound imaging of RIGHT breast with imaging documentation. Scanning was performed by both the technologist and the radiologist. BREAST COMPOSITION: There are scattered areas of fibroglandular density. FINDINGS: 3D spot compression CC/MLO RIGHT breast mammogram images submitted. Decreased conspicuity of previously noted nodular density. No architectural distortion. Benign calcifications. Targeted RIGHT breast ultrasound performed at 10 o`clock 4 cm from the nipple. In this location, there is hypoechoic lobular density measuring 9 mm. IMPRESSION: Indeterminate, hypoechoic, nodular density within the RIGHT breast 10 o`clock 4 cm from the nipple measuring 9 mm. RECOMMENDATIONS: Ultrasound-guided core needle biopsy. Results and recommendations discussed with the patient. BI-RADS Category 4: Suspicious A lay language report of this examination will be provided to the patient. Dictated by Gerald Perry MD @ 02/12/2024 11:11:01 AM /sp SP/Dictated by: Gerald Perry MD @ 02/12/2024 11:11:00 AM (Electronically Signed)
--- NOTE | 2024-02-12 11:15 | CRLHL7_ITS ---
For Patients: As a result of the Century Cures Act, medical imaging exams and procedure reports are released immediately into your electronic medical record. You may view this report before your referring provider. If you have questions, please contact your health care provider. PLEASE SEE RIGHT BREAST DIAGNOSTIC MAMMOGRAM PERFORMED SAME DAY. CRL:sp SP/Dictated by: Gerald Perry MD @ 02/12/2024 12:23:00 PM (Electronically Signed)
== END 2024-02-12 10:20 | disposition home or self-care (01) ==
LOC: MAMMO 10:20
PROVIDERS: PCP Family Medicine; Visit Provider Internal Medicine
DX: N63.10 Unspecified lump in the right breast, unspecified quadrant (principal); R92.8 Other abnormal and inconclusive findings on diagnostic imaging of breast
CPT/HCPCS: 76642; 77065; G0279

== ENCOUNTER 2024-02-25 09:36 | Outpatient (CLI) | payer MEDICAID, SELFPAY ==
--- OUTSIDE RECORDS SUMMARY | 2024-02-25 09:41 | XMS_ITS | Clinical Summary ---
Author Organization [employer] Address [address] [place] [address] Care Team Providers Care Agricultural Aircraft Pilot Name Role Phone Aashish Sosa MD Primary Care Provider [phone] Source Comments You are receiving this document [...] for each transition of care or referral. [employer] Allergies Active Allergy Reactions Criticality Noted Date [...] Tablet 2 08/09/19 24 Active nystatin (MYCOSTATIN) 260183 UNIT/GM powder APPLY TO AFFECTED AREA TOPICALLY DIRECTED 45 g 3 08/09/19 24 Active nicotine (NICODERM CQ) 21 MG/24HR patchIndications:T obacco abuse ([facility]) Apply 1 Patch to skin every 24 [...] % nasal solutionIndication s:Vasomotor rhinitis Place 1 [place] into both nostrils two times a day. 30 mL 11 10/29/19 24 Active predniSONE (DELTASONE) 10 MG tabletIndications: Other chronic sinusitis Take 1 Tablet (10 mg) by mouth daily. 10 Tablet 10/29/19 24 Active ketoconazole (NIZORAL) 2 % creamIndications:T inea corporis Apply topically daily. Apply 1-2 times daily until clear plus one week 60 g 01/21/20 24 Active triamcinolone acetonide (KENALOG) 0.1 % ointmentIndication s:Psoriasis Apply topically two times a day. Indications: Psoriasis 80 g 1 01/21/20 24 Active Sennosides (SENNA) 8.6 MG tabletIndications: Constipation, unspecified constipation type Take 1 Tablet (8.6 mg) by mouth two times daily as needed. 30 Tablet 4 01/21/20 24 Active methocarbamol (ROBAXIN) 750 MG tablet Take 1 Tablet (750 mg) by mouth 4 times a day. 120 Tablet 5 01/21/20 24 Active levothyroxine (SYNTHROID) 112 MCG tablet TAKE 1 TABLET (112 MCG) BY MOUTH DAILY. 90 Tablet 3 01/23/20 24 Active baclofen (LIORESAL) 10 MG tablet TAKE 1 TABLET (10 MG) BY MOUTH THREE TIMES A DAY. 90 Tablet 01/29/20 24 Active gabapentin (NEURONTIN) 300 MG capsule TAKE 3 CAPSULES (900MG) BY MOUTH THREE TIMES DAILY 810 Capsule 01/24/20 24 Active oxyCODONE-acetamin ophen (PERCOCET) 5-325 MG tabletIndications: Chronic bilateral low back pain with right-sided sciatica (HRC) TAKE 1-2 TABLETS BY MOUTH EVERY 4-6 HOURS NEEDED FOR PAIN. 180 Tablet 02/17/20 24 Active baclofen (LIORESAL) 10 MG tablet Take 1 Tablet (10 mg) by mouth three times a day. 90 Tablet 5 08/09/19 24 024 Discontinued oxyCODONE-acetamin ophen (PERCOCET) 5-325 MG tabletIndications: Chronic bilateral low back pain with right-sided sciatica (HRC) TAKE 1-2 TABLETS BY MOUTH EVERY 4-6 HOURS NEEDED FOR PAIN. 180 Tablet 01/21/20 24 024 Discontinued(* Med change OR same [...] liver 10/29/2019 Atherosclerotic heart diseas e of [place] coronary artery without angina pectoris 10/29/2019 Thrombocytopenia [...] pressure 02/22/2019 11/10/2020 Pancreatitis, acute 02/22/2019 03/06/20 Tobacco use 12/10/2013 11/10/2020 Encounters Date Type Department Care Team Description 02/17/[address] [place] [address] Aashish Sosa MD Medication Refill Question 02/12/2024 Orders Only [facility] ProviderLissy MD 02/07/2024 1:25 PM CDT E-Visit [address] [place] [address] Aashish Sosa MD Chief Comp: QUESTIONS, GENERAL 02/05/[address] [facility] [address] [place] [address] Aashish Sosa MD Refill 02/03/2024 Orders Only [facility] ProviderLissy MD 01/30/2024 2:45 PM CDT E-Visit [address] [place] [address] Aasihsh Sosa MD Chief Comp: Dental Concerns 01/29/2024 E-Visit [facility] [address] [facility] [place] [address] Mychart, Generic Provider 01/23/2024 10:15 PM CDT E-Visit [address] [place] [address] Aashish Sosa MD Chief Comp: Follow-up, NOS 01/23/2024 Refill [address] [place] [address] Aashish Sosa MD Refill (baclofen (LIORESAL) 10 MG tablet [Pharmacy Med Name: BACLOFEN 10 MG TABS 10 Tablet]) 01/23/[address] [address] Aashish Sosa MD Refill (baclofen (LIORESAL) 10 MG tablet [Pharmacy Med Name: BACLOFEN 10 MG TABS 10 Tablet]) 01/23/[address] [address] Aashish Sosa MD Refill (levothyroxine (SYNTHROID) 112 MCG tablet [Pharmacy Med Name: LEVOTHYROXINE SODIUM 112 MC 112 Tablet]) 01/21/2024 12:05 PM CDT Lab Visit [address] [address] Muscle cramp; Dysuria; Interstitial cystitis 01/21/2024 11:00 AM CDT Office Visit [address] [address] Aashish Sosa MD Dysuria (Primary Dx); Urinary frequency; Interstitial cystitis; Chronic bilateral low back pain with right-sided sciatica (HRC); Disorder of rotator cuff of both shoulders; Tinea corporis; Psoriasis; Other chronic sinusitis; Idiopathic peripheral neuropathy; Muscle cramp; Constipation, unspecified constipation type 01/21/2024 [place] [address] [place] [address] Aashish Sosa MD Refill 12/24/2023 10:00 AM CDT Telemedicine [address] [place] [address] Aashish Sosa MD Chronic pain syndrome (Primary Dx); Chronic bilateral low back pain with right-sided sciatica (HRC); Primary osteoarthritis of right knee; Chronic rhinitis 12/24/[address] [facility] [address] [place] [address] Aashish Sosa MD 12/20/2023 Telephone [facility] Nurse Line [address] [place] [address] Aashish Sosa MD Questions 12/03/[address] [facility] [address] [place] [address] Aashish Sosa MD 12/03/2023 Orders Only [facility] Provider, MD Lissy 12/03/2023 Orders Only [facility] Provider, MD Lissy 12/02/[address] [address] Aashish Sosa MD Pharmacy (methocarbamol (ROBAXIN) 750 MG tablet ) 11/25/[address] [address] Aashish Sosa MD Order Questions 11/25/[address] [address] Aashish Sosa MD Follow-up from Last 3 Months Immunizations Name Administration Dates Next Due Moderna Monovalent + 08/05/2020,07/09/2020 Pfizer Monovalent 12+ 11/07/2021 Pfizer Monovalent [...] st Contact Info) Description 03/31/2024 11:00 AM HYDROMETEOROLOGIST Appointment [facility] [address] [facility] [place] [address] Aashish Sosa MD [address] [place] [id number] Health Maintenance Due Date Last Done Comments [...] 01/21/2024, 10/29/2023, 02/13/2023, Additional history exists Mammogram 02/11/2025 02/12/2024, 01/2024, 02/03/2024 (Completed), Additional history exists Cholesterol Discontinued 03/06/2019, 01/04/2009 [...] Name Priority Date/Time Associated Diagnosis Comments MAMMOGRAM [place] 02/12/2024 MAMMOGRAM SC 02/03/2024 URINALYSIS ROUTINE, MICRO/CULTURE IF [...] to Health Maintenance Results * MAMMOGRAM SC (02/12/2024) Only the most recent of2 resultswithin the time period is included. Interface Provider MD DUMMY/OTHER/AR * Urinalysis Routine, Micro/Culture if Pos: Clean Catch (01/21/2024 12:39 PM CDT) Urine Culture Comment Urinalysis results do not meet criteria for urine culture reflex. 01/21/2024 12:45 PM CDT [facility] Urine Color Yellow 01/21/2024 12:45 PM CDT [facility] Urine Clarity Clear Clear 01/21/2024 12:45 PM T [facility] Specific [place], Urine 1.010 1.005 - 1.030 01/21/2024 12:45 PM T [facility] PH Urine 6.0 5.0 - 8.0 01/21/2024 12:45 PM T [facility] Protein, Urine Qual (mg/dL) Negative Neg/Trace 01/21/2024 12:45 PM T [facility] Glucose Urine Qual (mg/dL) Negative Negative 01/21/2024 12:45 PM T [facility] Ketones, Urine (mg/dL) Negative Negative 01/21/2024 12:45 PM T [facility] Urobilinogen, Urine (EU/dL) 0.2 <2.0 01/21/2024 12:45 PM T [facility] Bilirubin Urine Negative Negative 01/21/2024 12:45 PM T [facility] Blood, Urine Negative Neg/Trace 01/21/2024 12:45 PM T [facility] Nitrite Urine Negative Negative 01/21/2024 12:45 PM T [facility] Leukocyte Est. Negative Negative 01/21/2024 12:45 PM [facility] Urine Source Clean Catch 01/21/2024 12:45 PM [facility] Urine URINE SPECIMEN COLLECTION, CLEAN CATCH / Unknown Non-blood Collection / Unknown 01/21/2024 12:39 PM CDT 01/21/2024 12:40 PM CDT Aashish Sosa MD LAB_[address] [address], [facility] * Basic Metabolic Panel (01/21/2024 12:27 PM CDT) Sodium 138 136 - 145 mmol/L 01/21/2024 5:04 PM CDT [facility] Potassium 3.9 3.5 - 5.1 mmol/L 01/21/2024 5:04 PM T [facility] Chloride 103 98 - 109 mmol/L 01/21/2024 5:04 PM CDT [facility] CO2 27 20 - 29 mmol/L 01/21/2024 5:04 PM CDT [facility] Anion Gap 8 6 - 16 mmol/L 01/21/2024 5:04 PM CDT [facility] Calcium 9.8 8.4 - 10.4 mg/dL 01/21/2024 5:04 PM CDT [facility] BUN 9 7 - 26 mg/dL 01/21/2024 5:04 PM CDT [facility] Creatinine 0.73 0.55 - 1.02 mg/dL 01/21/2024 5:04 PM CDT [facility] Glucose 95 70 - 100 mg/dL 01/21/2024 5:04 PM CDT [facility] Comment:The given reference range is for the fasting state. Non-fasting reference range for glucose is 70 - 180 mg/dL. GFR, Estimated >60 >60 mL/min/1.7 3m2 01/21/2024 5:04 PM CDT [facility] Hours Fasting 0.0 8 - 12 Hours 01/21/2024 5:04 PM CDT [facility] Blood Venipuncture / Unknown 01/21/2024 12:27 PM CDT 01/21/2024 12:27 PM CDT Aashish Sosa MD LAB_1 Performing Organization Address [facility] Co de Phone Number [facility] [address] * Magnesium (01/21/2024 12:27 PM CDT) Magnesium 2.2 1.6 - 2.6 mg/dL 01/21/2024 5:04 PM CDT [facility] Blood Venipuncture / Unknown 01/21/2024 12:27 PM CDT 01/21/2024 12:27 PM CDT Aashish Sosa MD LAB_1 Performing Organization Address [facility]/ZIP Co de Phone Number [facility] [address] * (ABNORMAL) Complete Blood Count-W/Diff (01/21/2024 12:20 PM [facility]) WBC 11.9(H) 3.5 - 10.5 x10(9)/L 01/21/2024 1:15 PM [facility] RBC 4.78 3.90 - 5.03 x10(12)/L 01/21/2024 1:15 PM [facility] Hemoglobin 12.9 12.0 - 15.5 g/dL 01/21/2024 1:15 PM [facility] HCT 41.7 34.9 - 44.5 % 01/21/2024 1:15 PM [facility] MCV 87.2 80.0 - 100.0 fL 01/21/2024 1:15 PM [facility] MCH 27.0(L) 27.6 - 33.3 pg 01/21/2024 1:15 PM [facility] MCHC 30.9(L) 31.5 - 35.2 g/dL 01/21/2024 1:15 PM [facility] RDW 14.7 11.9 - 15.5 % 01/21/2024 1:15 PM [facility] Platelets 192 150 - 450 x10(9)/L 01/21/2024 1:15 PM [facility] Automated NRBC 0 <=0 /100 WBC 01/21/2024 1:15 PM [facility] Neutrophil Absolute 8.3(H) 1.7 - 7.0 10(9)/L 01/21/2024 1:15 PM [facility] Lymphocyte Absolute 2.5 1.0 - 4.8 10(9)/L 01/21/2024 1:15 PM [facility] Monocyte Absolute 0.7 0.2 - 0.9 10(9)/L 01/21/2024 1:15 PM [facility] Eosinophil Absolute 0.3 0.0 - 0.5 10(9)/L 01/21/2024 1:15 PM [facility] Basophil Absolute 0.1 0.0 - 0.3 10(9)/L 01/21/2024 1:15 PM CDT [facility] Immature Granulocyte % 0.6(H) 0.0 - 0.5 % 01/21/2024 1:15 PM CDT [facility] Blood Venipuncture / Unknown 01/21/2024 12:20 PM CDT 01/21/2024 1:13 PM CDT Aashish Sosa MD LAB_1 [facility] [address] [place] [id number], [facility] * CT (12/03/2023) Only the most recent of2 resultswithin the time period is included. Anatomical Region Laterality Modality Other Interface Provider MD DUMMY/OTHER/AR * (ABNORMAL) Hgb A1C (10/29/2023 12:18 PM CDT) Hemoglobin A1C 6.7(H) <=5.6 % 10/29/2023 9:59 PM CDT [facility] Estimated Average Glucose (Calc) 146 < 117 mg/dL 10/29/2023 9:59 PM CDT [facility] Comment:Estimated average gl ucose (eAG) converts A1c into glucose units (mg/dL) and estimates average glucose over the past approximately 3 months. The eAG reference interval (<117 mg/dL) corresponds to an A1c of <5.7%. Blood Venipuncture / Unknown 10/29/2023 12:18 PM CDT 10/29/2023 12:19 PM CDT Narrative [facility] - 10/29/2023 9:59 PM CDT For patients not previously diagnosed with diabetes: 5.7-6.4%: Increased risk for diabetes 6.5% and greater: Diagnostic for diabetes For patients diagnosed with diabetes: <8.0%: Goal of therapy for ages 18-75 Clinicians may recommend a higher or lower goal for specific individuals. Aashish Sosa MD LAB_1 [facility] [address] * Albumin/Creatinine Ratio,Random Urine (02/13/2023 12:15 PM CDT) Albumin/Creati nine Ratio, Urine, Random 5 <30 mg/g 02/13/2023 6:12 PM CDT [facility] Albumin, Urine, Random 1.3 mg/L 02/13/2023 6:12 PM CDT [facility] Creatinine, Urine, Random 26 >20 mg/dL mg/dL 02/13/2023 6:12 PM CDT [facility] Urine Non-blood Collection / Unknown 02/13/2023 12:15 PM CDT 02/13/2023 12:15 PM CDT Aashish Sosa MD LAB_1 Performing Organization Address [facility] Co de Phone Number [facility] [address] [place], [place] [id number] [place] [address] * Hepatitis Panel with Reflex to Confirmation (08/05/2019 11:40 AM CDT) Hepatitis A Antibody, IgM Negative (Non Reactive) Negative (Non Reactive) 08/05/2019 4:05 PM CDT [facility] Comment:IgM anti-HAV not det ected. Does not exclude the possibility of exposure to or infection with HAV. Levels of IgM anti-HAV may be below the cut-off in early infection. Hepatitis Bc Antibody,IgM Negative (Non Reactive) Negative (Non-Reacti ve) 08/05/2019 4:05 PM CDT [facility] Comment:IgM anti-HBc not det ected. Does not exclude the possibility of exposure to or infection with HBV. Hepatitis B Surface Antigen Negative (Non Reactive) Negative (Non Reactive) 08/05/2019 4:05 PM CDT [facility] Hepatitis C Antibody Negative (Non Reactive) Negative (Non Reactive) 08/05/2019 4:05 PM CDT [facility] Comment:Antibodies to HCV no t detected. Does not exclude the possiblity of exposure to HCV. Blood Venipuncture / Unknown 08/05/2019 11:40 AM CDT 08/05/2019 11:40 AM CDT Suzan Manzano PA-C LAB_1 Performing Organization Address [facility] de Phone Number [facility] [address] [place] [address] * HIV 1/2 Ag/Ab 4th Generation (03/06/2019 3:10 PM CDT) [facility] HIV 1/2 Antigen/Antib adán (4th generation) Negative (Non Reactive) Negative (Non Reactive) 03/06/2019 7:24 PM CDT [facility] Comment:HIV-1 p24 Antigen an d HIV-1/HIV-2 Antibody not detected Blood Venipuncture / Unknown 03/06/2019 3:10 PM CDT 03/06/2019 3:10 PM CDT Aashish Sosa MD LAB_1 Performing Organization Address [facility] de Phone Number [facility] [address] [place] [address] * Lipid Panel and Direct LDL(If Needed) (03/06/2019 3:10 PM CDT) [facility] Cholesterol 196 0 - 199 mg/dL 03/06/2019 7:10 PM CDT [facility] Triglyceride 134 <=149 mg/dL 03/06/2019 7:10 PM CDT [facility] HDL Cholesterol 62 >=40 mg/dL 9 7:10 PM CDT [facility] LDL, Calculated 107 <130 mg/dL 9 7:10 PM CDT [facility] Non HDL Chol, Calculated 134 mg/dL 03/06/2019 7:10 PM CDT [facility] Cholesterol/HDL Ratio 3.2 03/06/2019 7:10 PM CDT [facility] Hours Fasting 10 03/06/2019 7:10 PM CDT [facility] Blood Venipuncture / Unknown 03/06/2019 3:10 PM CDT 03/06/2019 3:10 PM CDT Aashish Sosa MD LAB_1 [facility] [address] [place] [address], [address] [address], [facility] [phone] * CT Chest WO IV Cont Lung [...] 4:36 PM 02/28/2019 1:13 PM Care Teams Agricultural Aircraft Pilot Relationship Specialty Start Date End Date Aashish Sosa MD [address] [place] [address] PCP - General Family Practice 09/30/20
--- OUTSIDE RECORDS SUMMARY | 2024-02-25 09:42 | XMS_ITS | Encounter Summary ---
Author Organization [employer] Address [address] [place] [address] Care Team Providers Care Glass Cylinder Flanger Name Role Phone Aashish Sosa MD Primary Care Provider [phone] Encounter Details Date Type Department Care Team (Latest Contact Info) Description 12/03/2023 Orders Only [facility] ProviderLissy [place] [address] Social History Tobacco Use Types Packs/Day Years [...] st Contact Info) Description 03/31/2024 11:00 AM TIMBER FRAMER Appointment [facility] Medicine [address] [facility] [place] [address] Aashish Sosa MD [address] [place] [address] documented as of this encounter Procedures Procedure Name Priority Date/Time Associated Diagnosis Comments CT 12/03/2023 documented in this encounter Results * CT (12/03/2023) Anatomical Region Laterality Modality Other Interface Provider DUMMY/OTHER/AR documented in this encounter Visit Diagnoses Not on filedocumented in this encounter Care Teams Glass Cylinder Flanger Relationship Specialty Start Date End Date Aashish Sosa MD [address] [place] [address] PCP - General Family Practice 09/30/20 documented as of this encounter
--- OUTSIDE RECORDS SUMMARY | 2024-02-25 09:42 | XMS_ITS | Encounter Summary ---
Author Organization [employer] Address [address] [address] Care Team Providers Care Administrative Resources Associate Name Role Phone Aashish Sosa MD Primary Care Provider [phone] Reason for Visit * Reason Comments Medication Refill Question Encounter Details Date Type Department Care Team (Late st Contact Info) Description 02/17/2024 [facility] [address] [facility] [place] [phone] Aashish Sosa MD [address] [place] [address] Medication Refill Question Social History Tobacco Use Types Packs/Day Years [...] of this encounter Nursing Notes * Amna Moya, RN - 02/18/2024 10:47 AM CDT Left message for patient that an oxycodone prescription was sent to her pharmacy 02/17/2024. * Mala De Leon PA-C - 02/17/2024 10:41 AM CDT Refill has been sent Mala De Leon PA-C 10:41 AM 02/17/2024 * Amna Moya, RN - 02/17/2024 9:44 AM CDT Clinician: Review order(s) and sign as appropriate and Patient is expecting a call back from [facility] Patient/respiratory care assistant request: Medication question Specific Request: Oxycodone refill Spoke to patient who is upset that a prescription for prednisone was declined and she would like tomake sure that this monthly prescription for oxycodone is filled. She will be out of her current prescription 02/18. Leandra would like a call back to make sure this prescription is approved. documented in this encounter Plan of Treatment Upcoming Encounters Date Type Department Care Team (Late st Contact Info) Description 03/31/2024 11:00 AM COMMERCIAL INSURANCE UNDERWRITER Appointment [facility] [address] [facility] [place] [address] Aashish Sosa MD [address] [place] [address] documented as of this encounter Visit Diagnoses Diagnosis Chronic bilateral low back pain with right-sided sciatica (HRC) documented in this encounter Care Teams Administrative Resources Associate Relationship Specialty Start Date End Date Aashish Sosa MD [address] [place] [address] PCP - General Family Practice 09/30/20 documented as of this encounter
--- OUTSIDE RECORDS SUMMARY | 2024-02-25 09:42 | XMS_ITS | Encounter Summary ---
Author Organization [employer] Address [address], [place] [address] Care Team Providers Care Orchid Hand Name Role Phone Aashish Sosa MD Primary Care Provider [phone] Reason for Visit * Reason Comments Refill baclofen (LIORESAL) 10 MG tablet [Pharmacy Med Name: BACLOFEN 10 MG TABS 10 Tablet] Encounter Details Date Type Department Care Team (Late st Contact Info) Description 01/23/2024 [facility] [address] [place] [address] Aashish Sosa MD [address] [facility] [place] [phone] Refill (baclofen (LIORESAL) 10 MG tablet [Pharmacy [...] (with AASHISH SOSA) Next scheduled visit: None [email or web address] Embedded Refills, Reference: [id number], 01/23/2024 1:16:52 PM CDT, Solitario: [facility] Primary Care [[id number]] ([id number]) documented in this encounter Plan of Treatment Upcoming Encounters Date Type Department Care Team (Late st Contact Info) Description 03/31/2024 11:00 AM SQUEEGEE TENDER Appointment [place] [facility] Medicine [address] [facility] [place] [address] Aashish Sosa MD [address] [place] [address] documented as of this encounter Visit Diagnoses Not on filedocumented in this encounter Care Teams Orchid Hand Relationship Specialty Start Date End Date Aashish Sosa MD [address] [place] [address] PCP - General Family Practice 09/30/20 documented as of this encounter
--- OUTSIDE RECORDS SUMMARY | 2024-02-25 09:42 | XMS_ITS | Encounter Summary ---
Author Organization [facility] Address [address], [place] [address] Care Team Providers Care Butcher Assistant Name Role Phone Aashish Sosa MD Primary Care Provider [phone] Encounter Details Date Type Department Care Team (Late Contact Info) Description 01/21/2024 12:05 PM CDT Lab Visit [facility] 300 [facility] [place] [id number] Muscle cramp; Dysuria; Interstitial cystitis Social History [...] (Late Contact Info) Description 03/31/2024 11:00 AM WASHING MACHINE LOADER AND PULLER Appointment [facility] 300 [facility] [place] [address] Aashish Sosa MD [address] [place] [address] [place] [id number] documented as of this encounter Procedures Procedure [...] - 145 mmol/L 01/21/2024 5:04 PM CDT [facility] Potassium 3.9 3.5 - 5.1 mmol/L 01/21/2024 5:04 PM CDT [facility] Chloride 103 98 - 109 mmol/L 01/21/2024 5:04 PM CDT [facility] CO2 27 20 - 29 mmol/L 01/21/2024 5:04 PM CDT [facility] Anion Gap 8 6 - 16 mmol/L 01/21/2024 5:04 PM CDT [facility] Calcium 9.8 8.4 - 10.4 mg/dL 01/21/2024 5:04 PM CDT [facility] BUN 9 7 - 26 mg/dL 01/21/2024 5:04 PM CDT [facility] Creatinine 0.73 0.55 - 1.02 mg/dL 01/21/2024 5:04 PM CDT [facility] Glucose 95 70 - 100 mg/dL 01/21/2024 5:04 PM CDT [facility] Comment:The given reference range is for the fasting state. Non-fasting reference range for glucose is 70 - 180 mg/dL. GFR, Estimated >60 >60 mL/min/1.7 3m2 01/21/2024 5:04 PM CDT [facility] Hours Fasting 0.0 8 - 12 Hours 01/21/2024 5:04 PM CDT [facility] Blood Venipuncture / Unknown 01/21/2024 12:27 PM CDT 01/21/2024 12:27 PM CDT Aashish Ssoa MD LAB_1 [facility] [address] * Magnesium (01/21/2024 12:27 PM CDT) [facility] Magnesium 2.2 1.6 - 2.6 mg/dL 01/21/2024 5:04 PM CDT [facility] Blood Venipuncture / Unknown 01/21/2024 12:27 PM CDT 01/21/2024 12:27 PM CDT Aashish Sosa MD LAB_1 Performing Organization Address [facility] Co de Phone Number [facility] [address] * (ABNORMAL) Complete Blood Count-W/Diff (01/21/2024 12:20 PM CDT) [facility] WBC 11.9(H) 3.5 - 10.5 x10(9)/L 01/21/2024 1:15 PM CDT [facility] RBC 4.78 3.90 - 5.03 x10(12)/L 01/21/2024 1:15 PM CDT [facility] Hemoglobin 12.9 12.0 - 15.5 g/dL 01/21/2024 1:15 PM CDT [facility] HCT 41.7 34.9 - 44.5 % 01/21/2024 1:15 PM CDT [facility] MCV 87.2 80.0 - 100.0 fL 01/21/2024 1:15 PM CDT [facility] MCH 27.0(L) 27.6 - 33.3 pg 01/21/2024 1:15 PM CDT [facility] MCHC 30.9(L) 31.5 - 35.2 g/dL 01/21/2024 1:15 PM CDT [facility] RDW 14.7 11.9 - 15.5 % 01/21/2024 1:15 PM CDT [facility] Platelets 192 150 - 450 x10(9)/L 01/21/2024 1:15 PM CDT [facility] Automated NRBC 0 <=0 /100 WBC 01/21/2024 1:15 PM CDT [facility] Neutrophil Absolute 8.3(H) 1.7 - 7.0 10(9)/L 01/21/2024 1:15 PM CDT [facility] Lymphocyte Absolute 2.5 1.0 - 4.8 10(9)/L 01/21/2024 1:15 PM CDT [facility] Monocyte Absolute 0.7 0.2 - 0.9 10(9)/L 01/21/2024 1:15 PM CDT [facility] Eosinophil Absolute 0.3 0.0 - 0.5 10(9)/L 01/21/2024 1:15 PM CDT [facility] Basophil Absolute 0.1 0.0 - 0.3 10(9)/L 01/21/2024 1:15 PM CDT [facility] Immature Granulocyte % 0.6(H) 0.0 - 0.5 % 01/21/2024 1:15 PM CDT [facility] Blood Venipuncture / Unknown 01/21/2024 12:20 PM CDT 01/21/2024 1:13 PM CDT Aashish Sosa MD LAB_1 [facility] [address] [place] [address], [facility] documented in this encounter Visit Diagnoses Diagnosis Muscle cramp Cramp of limb Dysuria Interstitial cystitis Chronic interstitial cystitis documented in this encounter Care Teams Butcher Assistant Relationship Specialty Start Date End Date Aashish Sosa MD [address] [place] [address] [place] [address] PCP - General Family Practice 09/30/20 documented as of this encounter
--- OUTSIDE RECORDS SUMMARY | 2024-02-25 09:42 | XMS_ITS | Encounter Summary ---
Author Organization [facility] Address [address] [place] [address] Care Team Providers Care Screen Printing Machine Operator Helper Name Role Phone Aashish Sosa MD Primary Care Provider [phone] Encounter Details Date Type Department Care Team (Late Contact Info) Description 01/29/2024 E-Visit [facility] [address] [facility] [place], [place] [phone] Mychart, [place] [address] Social History Tobacco Use Types Packs/Day Years [...] (Late Contact Info) Description 03/31/2024 11:00 AM SYNTHETIC STAPLE EXTRUDER Appointment [facility] 300 [facility] [place] [address] Aashish Sosa MD [address] [place] [address] documented as of this encounter Visit Diagnoses Not on filedocumented in this encounter Care Teams Screen Printing Machine Operator Helper Relationship Specialty Start Date End Date Aashish Sosa MD NPI: [id number] [place] [address] [place] [address] PCP - General Family Practice 09/30/20 documented as of this encounter
--- OUTSIDE RECORDS SUMMARY | 2024-02-25 09:42 | XMS_ITS | Encounter Summary ---
Author Organization [employer] Address [address], [place] [address] Care Team Providers Care Vp Of Digital Marketing Name Role Phone Aashish Sosa MD Primary Care Provider Reason for Visit * Reason Comments Refill baclofen (LIORESAL) 10 MG tablet [Pharmacy Med Name: BACLOFEN 10 MG TABS 10 Tablet] Encounter Details Date Type Department Care Team (Late st Contact Info) Description 01/23/2024 [facility] 300 [place] [address] Aashish Sosa MD 300 [facility] [place] [phone] Refill (baclofen (LIORESAL) 10 MG tablet [Pharmacy [...] (with AASHISH SOSA) Next scheduled visit: None [facility] [employer] Embedded Refills, Reference: [id number], 01/23/2024 1:17:24 PM CDT, Pool: ZAK Refill [facility] - Primary Care [[id number]] ([id number]) documented in this encounter Plan of Treatment Upcoming Encounters Date Type Department Care Team (Late st Contact Info) Description 03/31/2024 11:00 AM MINES SAFETY ENGINEER Appointment [facility] Medicine [address] [place] [address] [place] [address] Aashish Sosa MD [address] [place] [address] [place] [address] documented as of this encounter Visit Diagnoses Not on filedocumented in this encounter Care Teams Vp Of Digital Marketing Relationship Specialty Start Date End Date Aashish Sosa MD [address] [place] [address] PCP - General Family Practice 09/30/20 documented as of this encounter
--- OUTSIDE RECORDS SUMMARY | 2024-02-25 09:42 | XMS_ITS | Encounter Summary ---
Author Organization [employer] Address [address] [place] [address] Care Team Providers Care Environmental Permitting Specialist Name Role Phone Aashish Sosa MD Primary Care Provider [phone] Reason for Visit * Reason Comments Order Questions Encounter Details Date Type Department Care Team (Late st Contact Info) Description 11/25/2023 Telephone [facility] 300 [facility] [place] [phone] Aashish Sosa MD [address] [facility] [place] [phone] Order Questions Social History Tobacco Use Types [...] 2:28 PM CDT Spoke to Sara at [place] and clarified what she had said regarding a sinus CT scan. Sara stated they have never seen ordered as CT Fusion but they will go ahead and get a CT scan done of the sinuses in the head region. * Emmie Weiner 11/25/2023 2:02 PM CDT Other Questions/Concerns/FYI Is this a symptom? No What is your question or concern? [facility] calling needsa call back unsure what [...] st Contact Info) Description 03/31/2024 11:00 AM HIGH SCHOOL PROFESSIONAL Appointment [facility] 300 [facility] [place] [address] Aashish Sosa MD [address] [place] [address] documented as of this encounter Visit Diagnoses Not on filedocumented in this encounter Care Teams Environmental Permitting Specialist Relationship Specialty Start Date End Date Aashish Sosa MD [address] [place] [address] PCP - General Family Practice 09/30/20 documented as of this encounter
--- OUTSIDE RECORDS SUMMARY | 2024-02-25 09:42 | XMS_ITS | Encounter Summary ---
Author Organization [employer] Address [address] [address] Care Team Providers Care Edge Trimming Machine Operator Name Role Phone Aashish Sosa MD Primary Care Provider [phone] Reason for Visit * Reason Comments Questions Encounter Details Date Type Department Care Team (Late st Contact Info) Description 12/20/2023 Telephone [facility] [address] [place] [address] Aashish Sosa MD [address] [place] [address] DR Nagel [place], [place] [phone] Questions Social History Tobacco Use Types Packs/Day [...] 1:17 AM CDT Clinician: Review and advise Patient/vehicle care specialist request: Change appointment type. Specific Request: Pt [...] st Contact Info) Description 03/31/2024 11:00 AM ACADEMIC SUPPORT COORDINATOR Appointment [facility] 300 [facility] [place] [address] Aashish Sosa MD [address] [place] [address] documented as of this encounter Visit Diagnoses Not on filedocumented in this encounter Care Teams Edge Trimming Machine Operator Relationship Specialty Start Date End Date Aashish Sosa MD [address] [place] [address] [place] [address] PCP - General Family Practice 09/30/20 documented as of this encounter
--- OUTSIDE RECORDS SUMMARY | 2024-02-25 09:42 | XMS_ITS | Encounter Summary ---
Author Organization [employer] Address [address] [address] Care Team Providers Care Biochemistry Teacher Name Role Phone Aashish Sosa MD Primary Care Provider [phone] Reason for Visit * Reason Comments Follow-up Encounter Details Date Type Department Care Team (Late st Contact Info) Description 11/25/[address] [place] [phone] Aashish Sosa MD [address] [place] [address] DR Shona [place] [phone] Follow-up Social History Tobacco Use Types Packs/Day [...] st Contact Info) Description 03/31/2024 11:00 AM EPILEPSY PHYSICIAN Appointment [address] [place] [address] Aashish Sosa MD [address] [place] [address] documented as of this encounter Visit Diagnoses Not on filedocumented in this encounter Care Teams Biochemistry Teacher Relationship Specialty Start Date End Date Aashish Sosa MD [address] [place] [address] [place] [address] PCP - General Family Practice 09/30/20 documented as of this encounter
--- OUTSIDE RECORDS SUMMARY | 2024-02-25 09:42 | XMS_ITS | Encounter Summary ---
Author Organization [facility] Address [address] [place] [address] Care Team Providers Care Agriscience Instructor Name Role Phone Aashish Sosa MD Primary Care Provider [phone] Encounter Details Date Type Department Care Team (Latest Contact Info) Description 12/03/2023 Orders Only [facility] ProviderLsisy [place] [address] Social History Tobacco Use Types Packs/Day Years [...] st Contact Info) Description 03/31/2024 11:00 AM BLOWER ROOM ATTENDANT Appointment [facility] 300 [facility] [place] [address] Aashish Sosa MD [address] [place] [address] documented as of this encounter Procedures Procedure Name Priority Date/Time Associated Diagnosis Comments CT 12/03/2023 documented in this encounter Results * CT (12/03/2023) Anatomical Region Laterality Modality Other Interface Provider DUMMY/OTHER/AR documented in this encounter Visit Diagnoses Not on filedocumented in this encounter Care Teams Agriscience Instructor Relationship Specialty Start Date End Date Aashish Sosa MD [address] [place] [address] PCP - General Family Practice 09/30/20 documented as of this encounter
--- OUTSIDE RECORDS SUMMARY | 2024-02-25 09:42 | XMS_ITS | Encounter Summary ---
Author Organization [employer] Address [address], [place] [address] Care Team Providers Care Lei Seller Name Role Phone Aashish Sosa MD Primary Care Provider [phone] Reason for Visit * Reason Comments Refill levothyroxine (SYNTH ROID) 112 MCG tablet [Pharmacy Med Name: LEVOTHYROXINE SODIUM 112 MC 112 Tablet] Encounter Details Date Type Department Care Team (Late st Contact Info) Description 01/23/2024 Refill [facility] 300 [facility] [place] [address] Aashish Sosa MD [address] [place], [place] [phone] Refill (levothyroxine (SYNTHROID) 112 MCG tablet [Pharmacy [...] visit: None TSH: 0.76 mIU/L on 10/29/2023 [facility] Embedded Refills, Reference: [id number], 01/23/2024 1:16:52 PM CDT, Pool: ZAK [facility]lj [facility] Services - Primary Care [[id number]] ([id number]) documented in this encounter Plan of Treatment Upcoming Encounters Date Type Department Care Team (Late st Contact Info) Description 03/31/2024 11:00 AM EVENTS SPECIALIST Appointment [address] [place] [address] Aashish Sosa MD [address] [place] [address] documented as of this encounter Visit Diagnoses Not on filedocumented in this encounter Care Teams Lei Seller Relationship Specialty Start Date End Date Aashish Sosa MD [address] [place] [address] PCP - General Family Practice 09/30/20 documented as of this encounter
--- OUTSIDE RECORDS SUMMARY | 2024-02-25 09:42 | XMS_ITS | Encounter Summary ---
Author Organization [employer] Address [address] [place] [address] Care Team Providers Care Title Curator Name Role Phone Aashish Sosa MD Primary Care Provider [phone] Encounter Details Date Type Department Care Team (Latest Contact Info) Description 02/12/2024 Orders Only [facility] ProviderLissy [place] [address] Social History Tobacco Use Types Packs/Day Years [...] st Contact Info) Description 03/31/2024 11:00 AM INSURANCE FOLLOW UP SPECIALIST Appointment [facility] Medicine [address] [place] [address] [place] [address] Aashish Sosa MD [address] [place] [address] documented as of this encounter Procedures Procedure Name Priority Date/Time Associated Diagnosis Comments MAMMOGRAM SC 02/12/2024 documented in this encounter Results * MAMMOGRAM SC (02/12/2024) Interface Provider DUMMY/OTHER/AR documented in this encounter Visit Diagnoses Not on filedocumented in this encounter Care Teams Title Curator Relationship Specialty Start Date End Date Aashish Sosa MD [address] [place] [address] PCP - General Family Practice 09/30/20 documented as of this encounter
--- OUTSIDE RECORDS SUMMARY | 2024-02-25 09:42 | XMS_ITS | Encounter Summary ---
Author Organization [employer] Address [address], [place] [address] Care Team Providers Care Manager Of Quality Name Role Phone Aashish Sosa MD Primary Care Provider Reason for Referral * Procedure/Equipment (Routine) - Incomplete Specialty Diagnoses / Procedures Referred By Contkierra t Referred To Contact Diagnoses Encounter for screening mammogram for malignant neoplasm of breast Procedures MM Mammogram Screening Bilat Aashish Dominique MD [address] [place] [address] [place] [address] Referral ID Status Reason Start Date Expiration Date V isits Requested Visits Authorized [id number] Incomplete 11/25/2023 02/23/2025 1 1 Reason for Visit * Reason Comments ORDERS Encounter Details Date Type Department Care Team (Late st Contact Info) Description 11/22/2023 Telephone [facility] 300 [facility] [place] [phone] Aashish Sosa MD [address] [place] [phone] ORDERS Social History Tobacco Use Types Packs/Day [...] and advised that we just spoke with [facility] and they do have the orders so she can call and make appointment. * Alaina Dillon RN - 11/25/2023 1:53 PM CDT Pt states she called [facility] and no faxed orders have been received. Routing to [facility] to follow up. * Analilia Anthony MA [...] WO IV Cont orders and faxed to [facility] [phone]. Ordered mammogram, printed, and faxed to [facility] [phone] * Subha Gates RN - 11/22/2023 10:50 AM CDT Patient wonders about having imaging orders sent to [facility] near her to have completed instead of doing at [facility]. Requesting the orders for CT Abd Pelvis W IV Cont and CT Fusion Sinus WO IV Cont that were ordered back in April to be sent to [facility]. Patient does not have the fax number, but the phone number for [facility] is [phone]. She is also due for a mammogram and wonders if there is way to have this ordered to [facility] as well? documented in this encounter Plan of Treatment Upcoming Encounters Date Type Department Care Team (Late st Contact Info) Description 03/31/2024 11:00 AM PROCTOLOGIST Appointment [facility] 300 [facility] [place] [address] Aashish Sosa MD [address] [place] [address] Scheduled Orders Name Type Priority Associated Diagnoses Orde r Schedule MM Mammogram Screening Bilat W CAD Imaging New Routine Encounter for screening mammogram for malignant neoplasm of breast Expected: 11/25/2023 (Approximate), Expires: 11/24/2024 documented as of this encounter Visit Diagnoses Diagnosis Encounter for screening mammogram for malignant neoplasm of breast- Primary Other screening mammogram documented in this encounter Care Teams Manager Of Quality Relationship Specialty Start Date End Date Aashish Sosa MD [address] [place] [address] PCP - General Family Practice 09/30/20 documented as of this encounter
--- OUTSIDE RECORDS SUMMARY | 2024-02-25 09:42 | XMS_ITS | Encounter Summary ---
Author Organization [employer] Address [address] [place] [address] Care Team Providers Care Production Tool Engineer Name Role Phone Aashish Sosa MD Primary Care Provider [phone] Reason for Visit * Reason Comments Refill Encounter Details Date Type Department Care Team (Late st Contact Info) Description 02/05/2024 Refill [place] [address] [place] [address] Aashish Sosa MD [address] [place], [place] [phone] Refill Social History Tobacco Use Types Packs/Day [...] Center 03/31/2024 11:00 AM Aashish Sosa MD [facility] * Mala De Leon PA-C - 02/06/2024 [...] patient stated she had a mammogram at [facility] and needs to have a follow up one. Pt wants to make sure PCP will be able to review mammogram results once completed which is on 02/12/24 in [place]. Pt will fill out form to release the mammogram. Advised can see initial mammogram from [facility]. documented in this encounter Plan of Treatment Upcoming Encounters Date Type Department Care Team (Late st Contact Info) Description 03/31/2024 11:00 AM PRIMER INSERTING MACHINE OPERATOR Appointment [facility] 300 [facility] [place] [address] Aashish Sosa MD [address] [place] [address] documented as of this encounter Visit Diagnoses Diagnosis Other chronic sinusitis documented in this encounter Care Teams Production Tool Engineer Relationship Specialty Start Date End Date Aashish Sosa MD [address] [place] [address] PCP - General Family Practice 09/30/20 documented as of this encounter
--- OUTSIDE RECORDS SUMMARY | 2024-02-25 09:42 | XMS_ITS | Encounter Summary ---
Author Organization [employer] Address [address] [place] [address] Care Team Providers Care Inflated Pad Buffer Name Role Phone Aashish Sosa MD Primary Care Provider [phone] Reason for Visit * Reason Comments Follow-up, NOS Entered automaticall y based on patient selection in [facility]. Encounter Details Date Type Department Care Team (Late st Contact Info) Description 01/23/2024 10:15 PM CDT E-Visit [address] [place] [address] Aashish Sosa MD [address] [place] [phone] Chief Comp: Follow-up, NOS Social History Tobacco [...] and advise and Patient is expecting a [facility] message from [facility] Patient/skin care specialist request: Input needed: lab results Specific Request: Patient has questions regarding recent lab results and MRI results. Please see e-visit for additional details and advise. documented in this encounter Plan of Treatment Upcoming Encounters Date Type Department Care Team (Late st Contact Info) Description 03/31/2024 11:00 AM RUBY ENGINEER Appointment [address] [place] [address] Aashish Sosa MD [address] [place] [address] documented as of this encounter Visit Diagnoses Not on filedocumented in this encounter Care Teams Inflated Pad Buffer Relationship Specialty Start Date End Date Aashish Sosa MD [address] [place] [address] [place] [address] PCP - General Family Practice 09/30/20 documented as of this encounter
--- OUTSIDE RECORDS SUMMARY | 2024-02-25 09:42 | XMS_ITS | Encounter Summary ---
Author Organization [employer] Address [address] [place] [address] Care Team Providers Care Batter Out Name Role Phone Aashish Sosa MD Primary Care Provider [phone] Encounter Details Date Type Department Care Team (Late st Contact Info) Description 12/03/2023 Nurse Triage [facility] [address] [place] [address] Aashish Sosa MD [address] [place] [address] [address] Nagel [place], [place] [phone] Social History Tobacco Use Types Packs/Day Years [...] to follow up with ENT at local [facility] facility for chronic sinusitis. Pt has internal [...] 2:05 PM CDT Clinician: Review and advise Patient/critical care nurse specialist request: Input needed: imaging results Specific Request: Pt questions if PCP thinks that the atelectasis noted on CT scan done 11/27/23 at [facility](results scanned into pt's chart) could be [...] scan of abdomen/pelvis completed on 11/27/23 at [facility]. Informed pt that the results have [...] or worse than normal Protocols used: Breathing Hhtsvhlzop-AEVSW-PM documented in this encounter Plan of Treatment Upcoming Encounters Date Type Department Care Team (Late st Contact Info) Description 03/31/2024 11:00 AM AFFILIATE MARKETING SPECIALIST Appointment [facility] 300 [facility] [place] [address] Aashish Sosa MD [address] [place] [address] documented as of this encounter Visit Diagnoses Not on filedocumented in this encounter Care Teams Batter Out Relationship Specialty Start Date End Date Aashish Sosa MD [address] [place] [address] [place] [address] PCP - General Family Practice 09/30/20 documented as of this encounter
--- OUTSIDE RECORDS SUMMARY | 2024-02-25 09:42 | XMS_ITS | Encounter Summary ---
Author Organization [employer] Address [address] [place] [address] Care Team Providers Care Fabric Worker Fitter Name Role Phone Aashish Sosa MD Primary Care Provider [phone] Reason for Visit * Reason Comments Refill Oxycodone Encounter Details Date Type Department Care Team (Late st Contact Info) Description 11/22/2023 Refill [facility] Medicine 300 [facility] BRITTANY Carlson [phone] Aashish Sosa MD [address] [place] [address] Refill (Oxycodone) Social History Tobacco Use Types [...] Center 01/21/2024 11:00 AM Aashish Sosa MD [facility] M[facility] Review pended order for accuracy [...] st Contact Info) Description 03/31/2024 11:00 AM FOREST FIRE FIGHTER Appointment [facility] Medicine [address] [place] [address] Shona [place] Perez [address] Aashish Sosa MD [address] [place] [address] [place]IM[place] [address] documented as of this encounter Visit Diagnoses Diagnosis 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
--- OUTSIDE RECORDS SUMMARY | 2024-02-25 09:42 | XMS_ITS | Encounter Summary ---
Author Organization [employer] Address [address] [address] Care Team Providers Care Equipment Scheduler Name Role Phone Aashish Sosa MD Primary Care Provider [phone] Reason for Visit * Reason Onset Date Comments Phone Visit 12/24/2023 Medication refil l, nasal congestion Encounter Details Date Type Department Care Team (Latest Contact Info) Description 12/24/2023 10:00 AM CDT Telemedicine [facility] 300 [place] [address] Aashish Sosa MD 300 [place], [place] [address]247 Chronic pain syndrome (Primary Dx); Chronic bilateral [...] st Contact Info) Description 03/31/2024 11:00 AM THERMAL INTELLIGENCE ANALYST Appointment [facility] 300 [facility] [place] [address] Aashish Sosa MD 300 [place] [address] documented as of this encounter Visit Diagnoses Diagnosis Chronic pain syndrome- Primary 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
--- OUTSIDE RECORDS SUMMARY | 2024-02-25 09:42 | XMS_ITS | Encounter Summary ---
Author Organization [employer] Address [address] [place] [address] Care Team Providers Care Data Integrity Specialist Name Role Phone Aashish Sosa MD Primary Care Provider [phone] Reason for Visit * Reason Comments QUESTIONS, GENERAL Entered automaticall y based on patient selection in [facility]. Encounter Details Date Type Department Care Team (Late st Contact Info) Description 02/07/2024 1:25 PM CDT E-Visit [address] [phone] Aashish Sosa MD [address] [place] [phone] Chief Comp: QUESTIONS, GENERAL Social History Tobacco [...] st Contact Info) Description 03/31/2024 11:00 AM REFERENCE LIBRARIAN Appointment [facility] 300 [facility] [place] [address] Aashish Sosa MD [address] [place] [address] documented as of this encounter Visit Diagnoses Not on filedocumented in this encounter Care Teams Data Integrity Specialist Relationship Specialty Start Date End Date Aashish Sosa MD [address] [place] [address] [place] [address] PCP - General Family Practice 09/30/20 documented as of this encounter
--- OUTSIDE RECORDS SUMMARY | 2024-02-25 09:42 | XMS_ITS | Encounter Summary ---
Author Organization [employer] Address [address] [place] [address] Care Team Providers Care Medical Education Coordinator Name Role Phone Aashish Sosa MD Primary Care Provider [phone] Encounter Details Date Type Department Care Team (Late st Contact Info) Description 12/24/2023 Telephone [facility] [address] [place] [address] Aashish Sosa MD [address] [place] [address] [place] [address] Social History Tobacco Use Types [...] Patient is expecting a call back from [facility] Patient/care mgr request: Appointment Work In: missed appointment today [...] st Contact Info) Description 03/31/2024 11:00 AM FISHING WORKER Appointment [facility] Medicine 300 [facility] [place] [address] Aashish Sosa MD [address] [place] [address] documented as of this encounter Visit Diagnoses Not on filedocumented in this encounter Care Teams Medical Education Coordinator Relationship Specialty Start Date End Date Aashish Sosa MD [address] [place]IMES [address] PCP - General Family Practice 09/30/20 documented as of this encounter
--- OUTSIDE RECORDS SUMMARY | 2024-02-25 09:42 | XMS_ITS | Encounter Summary ---
Author Organization [employer] Address [address], [place] [address] Care Team Providers Care Registered Nurse Post Partum Name Role Phone Aashish Sosa MD Primary Care Provider [phone] Reason for Visit * Reason Onset Date Comments Refill 01/21/2024 Encounter Details Date Type Department Care Team (Late st Contact Info) Description 01/21/2024 Refill [facility] Medicine 300 [facility] [place] [phone] Aashish Sosa MD [address] [place] [address] Refill Social History Tobacco Use Types Packs/Day [...] as of this encounter Nursing Notes * Padmnii Huerta RN - 01/21/2024 12:44 PM CDT [...] st Contact Info) Description 03/31/2024 11:00 AM SEED CLEANER Appointment [facility] 300 [facility] [place] [address] Aashish Sosa MD [address] [place] [address] documented as of this encounter Visit Diagnoses Diagnosis 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
--- OUTSIDE RECORDS SUMMARY | 2024-02-25 09:42 | XMS_ITS | Encounter Summary ---
Author Organization [employer] Address [address], [place] [address] Care Team Providers Care Dance Hall Hostess Name Role Phone Aashish Sosa MD Primary Care Provider [phone] Reason for Visit * Reason Comments Pharmacy methocarbamol (ROBAX IN) 750 MG tablet Encounter Details Date Type Department Care Team (Late st Contact Info) Description 12/02/2023 Telephone [facility] 300 [facility] [place] Carlson [phone] Aashish Sosa MD [address] Shona [place] [phone] Pharmacy (methocarbamol (ROBAXIN) 750 MG tablet ) [...] to CSS or change orders if needed Patient/rn patient care request: Medication question Specific Request: Per call [...] st Contact Info) Description 03/31/2024 11:00 AM CLUB ATTENDANT Appointment [facility] 300 [facility] [place] [address] Aashish Sosa MD [address] [place] [address] documented as of this encounter Visit Diagnoses Not on filedocumented in this encounter Care Teams Dance Hall Hostess Relationship Specialty Start Date End Date Aashish Sosa MD [address] [place]IMES [phone] PCP - General Family Practice 09/30/20 documented as of this encounter
--- OUTSIDE RECORDS SUMMARY | 2024-02-25 09:42 | XMS_ITS | Encounter Summary ---
Author Organization [facility] Address [address] [place] [address] Care Team Providers Care Manager Ct Name Role Phone Aashish Sosa MD Primary Care Provider [phone] Reason for Referral * Consult/Transfer Care (Routine) - New Request Specialty Diagnoses / Procedures Referred By Erick kennedy Referred To Contact Diagnoses Interstitial cystitis Aashish Sosa MD [address] [place] [address] [place] [address] Referral ID Status Reason Start Date Expiration Date V isits Requested Visits Authorized [id number] New Request 01/21/2024 04/21/2025 1 1 Scheduling Instructions Your clinician has recommended an appointment with [facility]. You can quickly make your appointment online at [employer]ibly/[email or web address]. You can also call [phone] for help scheduling your appointment. We suggest you call your health insurance company about your coverage and benefits for this appointment. Question Answer Appointment Urgency? Non-Urgent Reason for visit? interstitial cystitis * Consult/Transfer Care (Routine) - New Request Specialty Diagnoses / Procedures Referred By Erick kennedy Referred To Contact Diagnoses Other chronic sinusitis Aashish Sosa MD [address] [place] [address] Referral ID Status Reason Start Date Expiration Date V isits Requested Visits Authorized [id number] New Request 01/21/2024 04/21/2025 1 1 Scheduling Instructions Your clinician has recommended an appointment with [facility] ([facility]) - Head & Neck Surgery. You may call [phone] for help scheduling your appointment. We suggest [...] Wheelchair - Manual Aashish Sosa MD [address] [place] [address] Referral ID Status Reason Start Date Expiration Date V isits Requested Visits Authorized [id number] New Request 01/21/2024 07/19/2024 1 1 Reason for Visit * Reason Comments Follow-up MEDICATION CHECK Encounter Details Date Type Department Care Team (Late st Contact Info) Description 01/21/2024 11:00 AM CDT Office Visit [facility] Medicine 300 [facility] [place] [phone] Aashish Sosa MD [address] [place] [phone] Dysuria (Primary Dx); Urinary frequency; Interstitial cystitis; [...] to triamcinolone. She has not seen a economic adviser for long time. Chronic sinusitis. She has [...] (ASTELIN) 0.1 % nasal solution Place 1 [place] into both nostrils two times a day. [...] prior to new patch application nystatin (MYCOSTATIN) 182509 UNIT/GM powder APPLY TO AFFECTED AREA TOPICALLY [...] this is consistent with psoriasis Plan: 1. [place] use of moisturizers 2. Triamcinolone ointment applied b.i.d. for up to 1 month 3. Consider dermatologic consultation. 4. Avoid excessive use of topical steroids to avoid skin atrophy. 9. Chronic sinusitis Assessment plan: She gets recurrent sinus infections in his chronically congested. Will obtain ENT consultation within [facility]. 10. Muscle cramping chronic 11. Idiopathic peripheral [...] st Contact Info) Description 03/31/2024 11:00 AM CIVIL ESTIMATOR Appointment [facility] [address] [place] [address] [place] [address] Aashish Sosa MD [address] [place] [address] [place] [address] Scheduled Referrals Name Type Priority Associated Diagnoses [...] urine culture reflex. 01/21/2024 12:45 PM [facility] Urine Color Yellow 01/21/2024 12:45 PM [facility] Urine Clarity Clear Clear 01/21/2024 12:45 PM [facility] Specific [place], Urine 1.010 1.005 - 1.030 01/21/2024 12:45 PM [facility] PH Urine 6.0 5.0 - 8.0 01/21/2024 12:45 PM [facility] Protein, Urine Qual (mg/dL) Negative Neg/Trace 01/21/2024 12:45 PM [facility] Glucose Urine Qual (mg/dL) Negative Negative 01/21/2024 12:45 PM [facility] Ketones, Urine (mg/dL) Negative Negative 01/21/2024 12:45 PM [facility] Urobilinogen, Urine (EU/dL) 0.2 <2.0 01/21/2024 12:45 PM [facility] Bilirubin Urine Negative Negative 01/21/2024 12:45 PM [facility] Blood, Urine Negative Neg/Trace 01/21/2024 12:45 PM [facility] Nitrite Urine Negative Negative 01/21/2024 12:45 PM [facility] Leukocyte Est. Negative Negative 01/21/2024 12:45 PM [facility] Urine Source Clean Catch 01/21/2024 12:45 PM [facility] Urine URINE SPECIMEN COLLECTION, CLEAN CATCH / Unknown Non-blood Collection / Unknown 01/21/2024 12:39 PM CDT 01/21/2024 12:40 PM CDT Aashish Sosa MD LAB_1 [facility] [address] [place] [address], [facility] * Basic Metabolic Panel (01/21/2024 12:27 PM CDT) Sodium 138 136 - 145 mmol/L 01/21/2024 5:04 PM CDT [facility] Potassium 3.9 3.5 - 5.1 mmol/L 01/21/2024 5:04 PM CDT [facility] Chloride 103 98 - 109 mmol/L 01/21/2024 5:04 PM CDT [facility] CO2 27 20 - 29 mmol/L 01/21/2024 5:04 PM CDT [facility] Anion Gap 8 6 - 16 mmol/L 01/21/2024 5:04 PM CDT [facility] Calcium 9.8 8.4 - 10.4 mg/dL 01/21/2024 5:04 PM CDT [facility] BUN 9 7 - 26 mg/dL 01/21/2024 5:04 PM CDT [facility] Creatinine 0.73 0.55 - 1.02 mg/dL 01/21/2024 5:04 PM CDT [facility] Glucose 95 70 - 100 mg/dL 01/21/2024 5:04 PM CDT [facility] Comment:The given reference range is for the fasting state. Non-fasting reference range for glucose is 70 - 180 mg/dL. GFR, Estimated >60 >60 mL/min/1.7 3m2 01/21/2024 5:04 PM CDT [facility] Hours Fasting 0.0 8 - 12 Hours 01/21/2024 5:04 PM CDT [facility] Blood Venipuncture / Unknown 01/21/2024 12:27 PM CDT 01/21/2024 12:27 PM CDT Aashish Sosa MD LAB_1 [facility] [address] [place] [address], [facility] * Magnesium (01/21/2024 12:27 PM CDT) Magnesium 2.2 1.6 - 2.6 mg/dL 01/21/2024 5:04 PM CDT [facility] Blood Venipuncture / Unknown 01/21/2024 12:27 PM CDT 01/21/2024 12:27 PM CDT Aashish Sosa MD LAB_1 [facility] [address] [place], [place] [id number] [place] [address] documented in this encounter Visit Diagnoses Diagnosis [...] type documented in this encounter Care Teams Manager Ct Relationship Specialty Start Date End Date Aashish Sosa MD [address] [place] [address] PCP - General Family Practice 09/30/20 documented as of this encounter
--- OUTSIDE RECORDS SUMMARY | 2024-02-25 09:42 | XMS_ITS | Encounter Summary ---
Author Organization [employer] Address [address] [place] [address] Care Team Providers Care Set And Exhibit Designer Name Role Phone Aashish Sosa MD Primary Care Provider [phone] Encounter Details Date Type Department Care Team (Latest Contact Info) Description 02/03/2024 Orders Only [facility] DEPARTMENT Provider[place]y [place] [address] Social History Tobacco Use Types Packs/Day Years [...] st Contact Info) Description 03/31/2024 11:00 AM AUSTRALIAN RULES FOOTBALLER Appointment [facility] Medicine [address] [place] [address] [place] [address] Aashish Sosa MD [address] [place] [address] documented as of this encounter Procedures Procedure Name Priority Date/Time Associated Diagnosis Comments MAMMOGRAM SC 02/03/2024 documented in this encounter Results * MAMMOGRAM SC (02/03/2024) Interface Provider DUMMY/OTHER/AR documented in this encounter Visit Diagnoses Not on filedocumented in this encounter Care Teams Set And Exhibit Designer Relationship Specialty Start Date End Date Aashish Sosa MD [address] [place] [address] PCP - General Family Practice 09/30/20 documented as of this encounter
--- OUTSIDE RECORDS SUMMARY | 2024-02-25 09:42 | XMS_ITS | Encounter Summary ---
Author Organization [employer] Address [address], [place] [address] Care Team Providers Care Bill Peddler Name Role Phone Aashish Sosa MD Primary Care Provider [phone] Reason for Visit * Reason Comments Dental Concerns Any abx? Encounter Details Date Type Department Care Team (Late st Contact Info) Description 01/30/2024 2:45 PM CDT E-Visit [facility] 300 [facility] Izaiah Perez [place] [phone] Aashish Sosa MD 300 [facility] [place] [phone] Chief Comp: Dental Concerns Social History Tobacco [...] Review and advise, Patient is expecting a CAILabst message from [email or web address], and Bill for E-Visit as appropriate Patient/home health caregiver request: Input needed: Dental issue Specific Request: Pt requesting pcp to review MyChart note and advise if any antibiotic is recommended Last pcp visit 01/21/24. * Za Austin - 01/31/2024 10:16 AM CDT Patient notes symptoms in their message. Please review and respond to patient. RN: Review [facility] [facility] message. If appointment is necessary and you are unable to reach the patient respond to message using [email or web address] documented in this encounter Plan of Treatment Upcoming Encounters Date Type Department Care Team (Late st Contact Info) Description 03/31/2024 11:00 AM CONSULTANT DIETITIAN Appointment [facility] 300 [facility] [place] [address] Aashish Sosa MD [address] [place] [address] documented as of this encounter Visit Diagnoses Not on filedocumented in this encounter Care Teams Bill Peddler Relationship Specialty Start Date End Date Aashish Sosa MD [address] [place] [address] [place] [address] PCP - General Family Practice 09/30/20 documented as of this encounter
--- OUTSIDE RECORDS SUMMARY | 2024-02-25 09:43 | XMS_ITS | Encounter Summary ---
Author Organization [employer] Address [address], [place] [address] Care Team Providers Care Tool Grinding Technician Name Role Phone Aashish Sosa MD Primary Care Provider [phone] Reason for Visit * Reason Comments Care Coordination Encounter Details Date Type Department Care Team (Late Contact Info) Description 03/11/2018 Care Conference [facility] 300 [facility] [place] [address] Aashish Sosa MD [address] [place] [address] [address] [place] [phone] Social History Tobacco Use Types Packs/Day Years [...] (Late Contact Info) Description 03/31/2024 11:00 AM MEDICAL DEVICE ENGINEER Appointment [facility] Medicine 300 [facility] [place] [address] Aashish Sosa MD [address] [place] [address] [place] [address] documented as of this encounter Visit Diagnoses Not on filedocumented in this encounter Care Teams Tool Grinding Technician Relationship Specialty Start Date End Date Aashish Sosa MD [address] [place] [address] PCP - General Family Practice 09/30/20 documented as of this encounter
--- NOTE | 2024-02-25 10:15 | CRLHL7_ITS ---
For Patients: As a result of the Century Cures Act, medical imaging exams and procedure reports are released immediately into your electronic medical record. You may view this report before your referring provider. If you have questions, please contact your health care provider. ULTRASOUND-GUIDED BREAST BIOPSY AND POST-BIOPSY DIGITAL MAMMOGRAM FOR BIOPSY MARKER PLACEMENT CLINICAL HISTORY: Indeterminate nodule. COMPARISON STUDIES: 02/12/2024, 02/03/2024. TECHNIQUE: Real-time ultrasound with image documentation was used for targeting the breast lesion. Core biopsy specimens were obtained using an automated gun with a 18-gauge biopsy needle. Post-biopsy CC and ML digital mammograms were obtained to document position of the biopsy marker. CONSENT and TIME OUT: The procedure, risks, and alternatives were explained to the patient and a consent was signed. [place] Protocol was followed including pre-procedure verification that relevant information/documentation was available, reviewed and properly matched to the patient; consent accurate and complete; and equipment and supplies available. Time Out was conducted just prior to starting procedure to verify the four required elements: patient identity, correct side/site marked (if applicable), procedure, relevant images/results properly labeled and displayed (if applicable). PROCEDURE: The patient was positioned supine on the ultrasound table. The breast was prepped with ChloraPrep. 5 cc of 1 percent lidocaine used for local anesthesia. Core samples were obtained. A sterile metal biopsy clip was placed percutaneously to remington the lesion position within the breast. The specimens were placed in 10% formalin and sent to the pathology department. Pressure was held on the biopsy site until all bleeding subsided. The skin incision was closed with Steri-Strips. An ice pack was positioned over the biopsy site. Post-biopsy instructions were reviewed with the patient, and a written copy was given to her. LATERALITY: RIGHT. LESION: Hypoechoic, circumscribed, solid nodule measuring 1.4 cm at 10 o`clock 4 cm from the nipple. SUSPICION FOR MALIGNANCY: Low. NUMBER OF SAMPLES: 5. BIOPSY CLIP SHAPE: Oval. PROXIMITY OF CLIP TO TARGET: Within the lesion. IMPRESSION: Ultrasound-guided breast biopsy. When the pathology report is available, an addendum to this report will be made. ACR not applicable Dictated by Gerald Perry MD @ 02/25/2024 12:38:08 PM /sp SP/Dictated by: Gerlad Perry MD @ 02/25/2024 12:38:00 PM (Electronically Signed)
--- NOTE | 2024-02-25 11:00 | CRLHL7_ITS ---
For Patients: As a result of the Century Cures Act, medical imaging exams and procedure reports are released immediately into your electronic medical record. You may view this report before your referring provider. If you have questions, please contact your health care provider. PLEASE SEE RIGHT BREAST ULTRASOUND-GUIDED BIOPSY OF SAME DAY. CRL:sp 02/25/2024 SP/Dictated by: Gerald Perry MD @ 02/25/2024 12:36:00 PM (Electronically Signed)
== END 2024-02-25 09:37 | disposition home or self-care (01) ==
LOC: US 09:36
PROVIDERS: PCP Family Medicine; Visit Provider Internal Medicine
DX: N63.10 Unspecified lump in the right breast, unspecified quadrant (principal); R92.8 Other abnormal and inconclusive findings on diagnostic imaging of breast; N64.59 Other signs and symptoms in breast
CPT/HCPCS: 19083; 77065; 88305; A4648; A4649

== ENCOUNTER 2024-05-13 10:51 | Outpatient (CLI) | payer MEDICAID, SELFPAY ==
--- NOTE | 2024-05-13 11:15 | CRLHL7_ITS ---
For Patients: As a result of the 21st Century Cures Act, medical imaging exams and procedure reports are released immediately into your electronic medical record. You may view this report before your referring provider. If you have questions, please contact your health care provider. INDICATION: Difficulty swallowing TECHNIQUE: Modified barium swallow. Fluoroscopic time 0.59 minutes. FINDINGS/IMPRESSION: Anatomical structures are normal. Swallowing mechanism appears within normal limits. Laryngeal penetration occurred without aspiration. Dictated by Gerald Perry MD @ 05/13/2024 11:51:27 AM (Electronically Signed)
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
== END 2024-05-13 10:52 | disposition home or self-care (01) ==
LOC: RAD 10:52
PROVIDERS: PCP Family Medicine; Visit Provider Otolaryngology
DX: R13.10 Dysphagia, unspecified (principal)
CPT/HCPCS: 74230; 92611

== ENCOUNTER 2024-09-10 10:06 | Outpatient (CLI) | payer MEDICAID, SELFPAY | END 2024-09-10 10:07 | disposition home or self-care (01) | PROVIDERS: PCP Internal Medicine; Visit Provider Internal Medicine | DX: R06.02 Shortness of breath (principal); Z79.899 Other long term (current) drug therapy; Z13.6 Encounter for screening for cardiovascular disorders | CPT/HCPCS: 80053; 80061; 83735 ==

== ENCOUNTER 2025-03-01 08:16 | Outpatient (CLI) | payer MEDICAID, SELFPAY | END 2025-03-01 08:17 | disposition home or self-care (01) | LOC: WOUND 08:18 | PROVIDERS: PCP Internal Medicine; Visit Provider Family Medicine | DX: E53.8 Deficiency of other specified B group vitamins (principal); G63 Polyneuropathy in diseases classified elsewhere; L89.323 Pressure ulcer of left buttock, stage 3; L98.411 Non-pressure chronic ulcer of buttock limited to breakdown of skin | CPT/HCPCS: 97597; G0463 ==

== ENCOUNTER 2025-03-08 08:11 | Outpatient (CLI) | payer MEDICAID, SELFPAY | END 2025-03-08 08:12 | disposition home or self-care (01) | LOC: WOUND 08:11 | PROVIDERS: PCP Internal Medicine; Visit Provider Family Medicine | DX: E53.8 Deficiency of other specified B group vitamins (principal); G63 Polyneuropathy in diseases classified elsewhere; L89.323 Pressure ulcer of left buttock, stage 3; L98.411 Non-pressure chronic ulcer of buttock limited to breakdown of skin | CPT/HCPCS: 11042 ==

== ENCOUNTER 2025-03-22 08:09 | Outpatient (CLI) | payer MEDICAID, SELFPAY | END 2025-03-22 08:10 | disposition home or self-care (01) | LOC: WOUND 08:09 | PROVIDERS: PCP Internal Medicine; Visit Provider Family Medicine | DX: E53.8 Deficiency of other specified B group vitamins (principal); G63 Polyneuropathy in diseases classified elsewhere; L89.323 Pressure ulcer of left buttock, stage 3; L98.411 Non-pressure chronic ulcer of buttock limited to breakdown of skin | CPT/HCPCS: 97597 ==

== ENCOUNTER 2025-03-29 08:08 | Outpatient (CLI) | payer MEDICAID, SELFPAY | END 2025-03-29 08:09 | disposition home or self-care (01) | LOC: WOUND 08:09 | PROVIDERS: PCP Internal Medicine; Visit Provider Family Medicine | DX: E53.8 Deficiency of other specified B group vitamins (principal); G63 Polyneuropathy in diseases classified elsewhere; L89.323 Pressure ulcer of left buttock, stage 3 | CPT/HCPCS: 97597 ==

== ENCOUNTER 2025-04-05 08:13 | Outpatient (CLI) | payer MEDICAID, SELFPAY | END 2025-04-05 08:14 | disposition home or self-care (01) | LOC: WOUND 08:14 | PROVIDERS: PCP Internal Medicine; Visit Provider Family Medicine | DX: E53.8 Deficiency of other specified B group vitamins (principal); G63 Polyneuropathy in diseases classified elsewhere; L89.323 Pressure ulcer of left buttock, stage 3 | CPT/HCPCS: G0463 ==

== ENCOUNTER 2025-04-06 19:44 | Outpatient (CLI) | payer MEDICAID, SELFPAY | END 2025-04-06 19:45 | disposition home or self-care (01) | LOC: AMB 04-10 20:03 | PROVIDERS: PCP Internal Medicine; Visit Provider Family Medicine | DX: R10.9 Unspecified abdominal pain (principal) | CPT/HCPCS: A0425; A0433 ==

== ENCOUNTER 2025-04-06 20:14 | Inpatient (IN) | payer MEDICAID, SELFPAY ==
--- OUTSIDE RECORDS SUMMARY | 2025-03-02 01:30 | XMS_ITS | Encounter Summary ---
Author Organization [facility] Address [address] [place] [address] Care Team Providers Care Evaluation Engineer Name Role Phone Aashish Sosa MD Primary Care Provider [phone] Reason for Visit * Reason Comments Symptoms Encounter Details Date Type Department Care Team (Late st Contact Info) Description 03/02/2025 2:30 AM CDT E-Visit [facility] [address] [facility] [place] [phone] Aashish Sosa MD [address] [place] [address] Chief Comp: Symptoms Social History Tobacco Use Types Packs/Day Years Used Date Smoking Tobacco: Some Days Cigarettes 0.3 30 Started: 02/24/1990; Last attempted to quit: 02/25/2020 Smokeless Tobacco: Never Comments:rare Alcohol Use Standard Drinks/Week Comments Not Currently 0 (1 standard drink = 0.6 oz pur e alcohol) rare Comments No Sex and Gender Information Value Date Recorded Sex Assigned at Not on file Legal Sex Female 4:34 AM CDT Gender Identity Not on file Sexual Orientation Not on file documented as of this encounter Nursing Notes * Mala De Leon PA-C - 03/17/2025 12:47 PM CDT Would recommend follow up visit since PCP is out until 04/12 Please assist in scheduling Thanks Mala De Leon PA-C 12:47 PM 03/17/2025 * Krystin Martinez APRN, CNP - 03/04/2025 8:23 AM CDT No qualifying documentation for lift chair recently. Will hold for PCP to consider addendum or if recommending follow-up visit. Covering for Dr. Sosa while out of office. Krystin Martinez APRN, CNP 8:24 AM 03/04/2025 * Leonarda Jacobo, VALERIE - 03/04/2025 8:15 AM CDT Clinician: Review and advise, Route to [facility], Patient is expecting a Voxxter message from [facility], and Bill for E-Visit as appropriate Patient/critical care rn request: New Order: DME lift/recliner request Specific Request: See e-visit sent 03/03 regarding DME lift/recliner request See e-visit sent 03/03 regarding home care/wound dressing change help request for every Saturday and Saturday. Patient states she has a residential case manager she is working with for assistance regarding more help with wound care dressing changes but may need further support. Last PCP visit 12/29/24 documented in this encounter Plan of Treatment Upcoming Encounters Date Type Department Care Team (Late st Contact Info) Description 04/27/2025 11:30 AM STRIP CUTTING MACHINE OPERATOR Appointment [facility] [address] [facility] [place] [address] Aashish Sosa MD [address] [place] [phone] documented as of this encounter Visit Diagnoses Not on filedocumented in this encounter Care Teams Evaluation Engineer Relationship Specialty Start Date End Date Aashish Sosa MD [address] [place] [address] [place] [phone] PCP - General Family Practice 09/30/20 documented as of this encounter
--- OUTSIDE RECORDS SUMMARY | 2025-04-06 20:16 | XMS_ITS | Encounter Summary ---
Author Organization [facility] Address [address], [place] [address] Care Team Providers Care Telecommunication Equipment Repairer Name Role Phone Aashish Sosa MD Primary Care Provider [phone] Reason for Visit * Reason Comments Care Coordination Encounter Details Date Type Department Care Team (Late st Contact Info) Description 03/11/2018 Care Conference [facility] Medicine [address] [facility] [place] [phone] Aashish Sosa MD [address] [place] [address] [place] [phone] Social History Tobacco Use Types Packs/Day Years Used Date Smoking Tobacco: Some Days Cigarettes Smokeless Tobacco: Never Comments:2 cig/day Alcohol Use Standard Drinks/Week Comments Yes 0 (1 standard drink = 0.6 oz pur e alcohol) rare Comments Unknown Sex and Gender Information Value Date Recorded Sex Assigned at Not on file Legal Sex Female 4:34 AM CDT Gender Identity Not on file Sexual Orientation Not on file documented as of this encounter Plan of Treatment Upcoming Encounters Date Type Department Care Team (Late st Contact Info) Description 04/27/2025 11:30 AM ECONOMIC FORECASTER [facility] [address] [facility] [place] [phone] Aashish Sosa MD [address] [place] [address] [place] [phone] documented as of this encounter Visit Diagnoses Not on filedocumented in this encounter Care Teams Telecommunication Equipment Repairer Relationship Specialty Start Date End Date Aashish Sosa MD [address] [place] [address] PCP - General Family Practice 09/30/20 documented as of this encounter
--- OUTSIDE RECORDS SUMMARY | 2025-04-06 20:17 | XMS_ITS | Encounter Summary ---
Author Organization [employer] Address [address] [place] [address] Care Team Providers Care Archivist Economic History Name Role Phone Aashish Sosa MD Primary Care Provider [phone] Reason for Visit * Reason Comments Refill Encounter Details Date Type Department Care Team (Late st Contact Info) Description 03/25/2025 Refill [facility] 300 [facility] [place] [phone] Aashish Sosa MD 300 [facility] [place] [address] Refill Social History Tobacco Use Types Packs/Day [...] of this encounter Nursing Notes * Silvia Garertt RN - 03/25/2025 1:07 PM CDT Further Assistance Needed on Refill from Clinician RN reviewed. Signed order needed. Medication not on Organizational Ambulatory Medication List Patient calling, uses prednisone as needed for worsening breathing, usually one/week. Last ordered 12/29/24. Gabapentin last ordered 01/01/25, pharmacy will dispense next week when due. Review pended order for accuracy and sign if appropriate and Close encounter Requested Prescriptions Pending Prescriptions Disp Refills gabapentin (NEURONTIN) 300 MG capsule 810 Capsule 0 Sig: Take 3 Capsules (900 mg) by mouth every 8 hours. predniSONE (DELTASONE) 10 MG tablet 10 Tablet 0 Sig: Take 1 Tablet (10 mg) by mouth daily. documented in this encounter Plan of Treatment Upcoming Encounters Date Type Department Care Team (Late st Contact Info) Description 04/27/2025 11:30 AM MACHINE TOOL DESIGNER Appointment [facility] [address] Aashish Sosa MD [address] [place] [phone] documented as of this encounter Visit Diagnoses Diagnosis Screening for colon cancer Special screening for malignant neoplasms, colon Other chronic sinusitis Acute bronchospasm Preventative health care Routine general medical examination at a health care facility documented in this encounter Care Teams Archivist Economic History Relationship Specialty Start Date End Date Aashish Sosa MD [address] [place] [address] PCP - General Family Practice 09/30/20 documented as of this encounter
--- OUTSIDE RECORDS SUMMARY | 2025-04-06 20:17 | XMS_ITS | Encounter Summary ---
Author Organization [facility] Address [address] [place] [address] Care Team Providers Care Emergency Man Name Role Phone Aashish Sosa MD Primary Care Provider [phone] Reason for Visit * Reason Onset Date Comments Medication Request 03/16/2025 Encounter Details Date Type Department Care Team (Late st Contact Info) Description 03/16/2025 Refill [facility] 300 [facility] [place] [phone] Aashish Sosa MD [address] [place] [address] Medication Request Social History Tobacco Use Types [...] Nursing Notes * Silvia Garrett RN - 03/16/2025 10:12 AM CDT Further Assistance Needed on Refill from Clinician RN reviewed. Signed order needed. Medication not on Organizational Ambulatory Medication List Patient calling for refill, needs delivered by 03/19 due to pharmacy hours of operation. Last fill date 02/18/25 Review pended order for accuracy and sign if appropriate Requested Prescriptions Pending Prescriptions Disp Refills oxyCODONE-acetaminophen (PERCOCET) 5-325 MG tablet 180 Tablet 0 Sig: Take 1-2 Tablets by mouth every 4 hours as needed for Pain. Do not start before March 18, 2025. 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
--- OUTSIDE RECORDS SUMMARY | 2025-04-06 20:17 | XMS_ITS | Encounter Summary ---
Author Organization [employer] Address [address] [place] [address] Care Team Providers Care Rn Supplemental Name Role Phone Aashish Sosa MD Primary Care Provider [phone] Reason for Visit * Reason Comments Prior Authorization For Medication gabap entin (NEURONTIN) 300 MG capsule Encounter Details Date Type Department Care Team (Late st Contact Info) Description 01/07/2025 Telephone [facility] 300 [facility] [place] [phone] Aashish Sosa MD [address] [facility] [place] [phone] Prior Authorization For Medication (gabapentin (NEURONTIN) 300 MG capsule) Social History Tobacco Use Types Packs/Day Years [...] as of this encounter Nursing Notes * Chantal Del Rio LPN - 01/10/2025 8:42 AM CDT Prior Authorization not needed for gabapentin. Informed by insurance that a PA is not needed on this medication. Pharmacy has been notified via fax. * Marcia Oneill - 01/07/2025 12:59 PM CDT ePA submitted in Epic for gabapentin (NEURONTIN) 300 MG capsule , please see medication list in patient snapshot for current PA status or determination details. Villalba: [id number] documented in this encounter Plan of Treatment Upcoming Encounters Date Type Department Care Team (Late st Contact Info) Description 04/27/2025 11:30 AM RN OUTPATIENT SURGERY Appointment [facility] 300 [facility] [place] [phone] Aashish Sosa MD [address] [place] [phone] documented as of this encounter Visit Diagnoses Not on filedocumented in this encounter Care Teams Rn Supplemental Relationship Specialty Start Date End Date Aashish Sosa MD [address] [place] [phone] PCP - General Family Practice 09/30/20 documented as of this encounter
--- OUTSIDE RECORDS SUMMARY | 2025-04-06 20:17 | XMS_ITS | Patient Health Record ---
Author Organization [facility] Address [address] [place] [address] [address] [place] [address] Care Team Providers Care Insurance Licensing Supervisor Name Role Phone Helen Neri Primary Care Provider Allergies Allergen (clinical drug ingredient) Drug/Non Drug Allergy documented on EMR Reaction Allergy Type Onset Date Status codeine Codeine Sulfate Unknown Drug Allergy A ctive morphine Morphine Sulfate Unknown Drug Allergy Active Propoxyphene HCl Unknown Drug Allergy Active tetracycline Tetracycline HCl Unknown Drug Allergy Active cephalexin Cephalexin Unknown Drug Allergy Activ e clindamycin Clindamycin Unknown Drug Allergy Act valdo erythromycin Erythromycin Unknown Drug Allergy A ctive meperidine Meperidine Unknown Drug Allergy Activ e Penicillin Unknown Drug Allergy Active Substance with sulfonamide structure and antibacterial mechanism of action (substance) Sulfa Antibiotics Unknown Drug Allergy Active Reason For Referral No Information Medications Medication SIG (Take, Route, Frequency, Duration) Notes Start Date End Date Status Vitamin C 500 MG Capsule as directed Orally Active Thiamine HCl 100 MG Tablet 1 tablet Orally Once a day; Duration: 30 day(s) Active Senna-S 8.6-50 MG Tablet 1 tablet in the evening as needed Orally Once a day; Duration: 30 day(s) Active Salonpas Pain Relief Patch - Patch as directed Externally Active Saline Nasal [place] A ctive Protonix 40 MG Tablet Delayed Release 1 tablet Orally Once a day; Duration: 30 day(s) Active Amitriptyline HCl 25 MG Tablet 1-2 tablets at bedtime Orally QHS (increase to 1.5 tabs qHS after 7 days, can increase to 2 as tolerated); Duration: 30 day(s) Active Ondansetron HCl 4 MG Tablet 1 tablet Orally up to QID Active MiraLax Active Baclofen 10 MG Tablet 1 tablet as needed Orally TID, prn; Duration: 30 days 09/27/2020 Active Metoprolol Tartrate 25 MG Tablet 1 tablet with food Orally qAM Active Methocarbamol 750 MG Tablet 1 tablet Orally every 8 hrs Active Acetaminophen 650 MG Tablet 1 capsule as needed Orally TID prn Active oxyCODONE-Acetaminophe n 5-325 MG Tablet 1 tablet as needed Orally (okay to fill on 10/08/20) every 4 hrs; Duration: 30 days G89.29 other chronic pain, M47.817 spondylosis without myelopathy or radiculopathy, lumbosacral region 10/08/2020 Active Gabapentin 300 MG Capsule as directed Orally take #3 caps TID; Duration: 30 day(s) Active Methocarbamol 750 MG Tablet 1 tablet Orally every 8 hrs; Duration: 30 day(s) Active Levothyroxine Sodium Active Imodium A-D Active Gabapentin 300 MG Capsule 2 capsules TID Active Folic Acid 1 MG Tablet 1 tablet Orally Once a day; Duration: 30 day(s) Active Cyanocobalamin 1000 MCG Tablet 1 tablet Orally Once a day; Duration: 30 day(s) Active Cholecalciferol 25 MCG (1000 UT) Capsule 1 capsule Orally Once a day; Duration: 30 day(s) Active Centrum Silver - Tablet as directed Orally Active Cymbalta 60 MG Capsule Delayed Release Particles 1 capsule Orally take 30MG qDay x 7 days, then 60MG qDay; Duration: 30 day(s) 09/30/2020 Active Antacid 500 MG Tablet Chewable 1 tablet Orally Once a day; Duration: 30 day(s) Active Aspirin 81 MG Tablet Chewable 1 tablet Orally Once a day; Duration: 30 day(s) Active Acyclovir 5 % Ointment 1 application every 3 hours Externally Six times a day Active Benadryl Active Social History Tobacco Use: Social History Observation Description Date Details (start date - stop date) Former Smoker NA - NA Social History Drugs/Alcohol: Social Info Question Answer Notes Alcohol Screen Did you have a drink containing alcohol in the past year? Yes How often did you have a drink containing alcohol in the past year? 2 to 3 times a week (3 points) How many drinks did you have on a typical day when you were drinking in the past year? 1 or 2 drinks (0 point) How often did you have 6 or more drinks on one occasion in the past year? Never (0 point) Points 3 Interpretation Positive Tobacco Use: Social Info Question Answer Notes Tobacco Use/Smoking: Are you a former smoker Additional Details Category Social Info Options Details Miscellaneous: Marital status: single Problems Problem Type SNOMED Code ICD Code Onset Dates Problem Status W/U Status Risk Notes Problem Opioid dependence (66213194) Opioid dependence, uncomplicated (F11.20) Active confirmed Problem Chronic pain (97026103) Other chronic pain (G89.29) Active confirmed Problem Idiopathic peripheral autonomic neuropathy (01007306) Other idiopathic peripheral autonomic neuropathy (G90.09) Active confirmed Problem Lumbosacral spondylosis without myelopathy (68116996) Spondylosis without myelopathy or radiculopathy, lumbosacral region (M47.817) Active confirmed Problem High risk drug monitoring status (509742269) 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 (Z79.891) Active confirmed Plan Of Treatment No Information Insurance Providers Payer Name Payer Address Payer Phone Subscriber Number Group Number Insured Name Patient Relationship to Insured Coverage Start Date Coverage End Date [facility] [address] [address] [place], [place] [id number] Leandra Osuna Self - patient is the insured Medical (General) History Medical History History ICD Code Bleeding Disorder Depression Anxiety Thyroid Problems Liver Disease Stomach Ulcers Heart Attack (2019) A fib Stroke () Arthritis Hypertension Vision Loss Bipolar Disorder Vitamin B Deficiency Surgical History Surgery Date(Month/Year) Ovarian Cyst Removal Partial Hysterectomy D&Cs and Laparoscopy Lumpectomy Oophrectomy Tonsilectomy Ankle Surgery Right Knee Surgery
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
[2025-04-06 20:23] VITALS: BP 170/86; PULSE 95; RESP 20; TEMP 36.9; O2SAT 93; BMI 25.7
--- NOTE | 2025-04-06 20:48 | CRLHL7_ITS ---
For Patients: As a result of the Century Cures Act, medical imaging exams and procedure reports are released immediately into your electronic medical record. You may view this report before your referring provider. If you have questions, please contact your health care provider. INDICATION: Abdominal pain radiating to back. TECHNIQUE: CT abdomen and pelvis acquired with 80 cc Isovue 370 IV contrast. COMPARISON: CT abdomen pelvis 11/27/2023. FINDINGS: Lower chest: Unremarkable. Liver: Unremarkable. Gallbladder and bile ducts: Unremarkable. Pancreas: Questionable minimal peripancreatic fat stranding along the uncinate process. No pancreatic ductal dilatation. No peripancreatic fluid collection. Spleen: Unremarkable. Adrenal glands: Unremarkable. Kidneys: Symmetric renal enhancement. No hydronephrosis or hydroureter. No urinary calculi. GI tract: No bowel obstruction. Colonic diverticulosis without acute diverticulitis. Prominent stool burden. Normal appendix. No suspicious bowel wall thickening. Vasculature: Atherosclerotic calcifications of the abdominal aorta and its major branches. No abdominal aortic aneurysm. Grossly patent vasculature. Lymph nodes: No suspicious lymphadenopathy. Peritoneum/Abdominal Wall: No ascites or pneumoperitoneum. No acute abdominal wall abnormality. Unchanged left lateral and posterior soft tissue metallic density foreign bodies. Pelvis: Normal bladder. No suspicious adnexal mass. Bones: No acute abnormality. IMPRESSION: 1. Questionable minimal peripancreatic fat stranding along the uncinate process. Correlate with laboratory data to exclude mild acute pancreatitis. 2. Colonic diverticulosis without acute diverticulitis. 3. Prominent stool burden. Please note that all CT scans at this facility use dose modulation, iterative reconstruction, and/or weight-based dosing when appropriate to reduce radiation dose to as low as reasonably achievable. Dictated by Raúl Santiago MD @ 04/06/2025 10:07:44 PM (Electronically Signed)
--- NOTE | 2025-04-06 20:49 | ED.GENADULT ---
HPI - General Adult General Chief complaint: Abdominal Pain Stated complaint: abdominal pain Time Seen by Provider: 04/06/25 20:26 Source: patient Mode of arrival: ambulatory Limitations: no limitations History of Present Illness HPI narrative: 64-year-old female with notable prior history of duodenal ulcers, gastric ulcers and pancreatitis in the past presents to the emergency department for evaluation of epigastric/mid abdominal pain that radiates to the back accompanied by nausea. Onset 4:00 a.m. this morning upon awakening, gradually worsening. Accompanied by nausea, a couple of episodes of vomiting. Pain is been worsening. She tried using her home typical doses of Percocet which she uses on a daily basis, taking for typical home PPI no improvement. She did also try Tums and a dose of Carafate which she had from prior stomach upset and this did not improve her symptoms. She called 911 EMS arrived and did administer fentanyl and Zofran with some temporary improvement. She seen in the hallway, as we are quite busy at the moment. She denies injury or trauma. She is not anticoagulated. Review of the record shows that she has been treated for decubitus ulcers throughout [facility], [place] in the past. She has a history of severe neuropathy and is wheelchair-bound at baseline. Tells me that she was living in a long-term as recently as last year and has worked her way back to independent living. She reports her symptoms feel similar to when she has had pancreatitis in the past. She does still have her gallbladder. With her last episode was probably about 2 years ago, she was told that she had a polyp on her gallbladder that may have been contributing to the pancreatitis, the records may be through [facility] [place]. Past medical history is pretty extensive she has a history of diabetes, obesity, coronary artery disease, stomach ulcers, prior pancreatitis, severe peripheral neuropathy which is the source of her debility. She denies any recent abdominal surgeries. Her most recent medicine changes starting Ozempic 6 months ago, denies complications. Reports that she has lost 30 lb with this intervention. Records also indicate a history of COPD. She has multiple antibiotic and pain medication allergies. ROS is notable for the GI symptoms only today, otherwise she denies changes from her baseline times 12 systems. Related Data Home Medications ?Medication ?Instructions ?Recorded ?Confirmed aspirin 81 mg capsule 81 mg PO DAILY 08/29/23 04/06/25 cyanocobalamin (vitamin B-12) 1,000 mcg PO DAILY 08/29/23 04/06/25 1,000 mcg capsule folic acid 1 mg tablet 1 mg PO DAILY 08/29/23 04/06/25 furosemide 20 mg tablet (Lasix) 20 mg PO DAILY 08/29/23 04/06/25 levothyroxine 112 mcg tablet 112 mcg PO DAILY 08/29/23 04/06/25 (Synthroid) methocarbamol 750 mg tablet 750 mg PO Q6H 08/29/23 04/06/25 metoprolol succinate 25 mg 25 mg PO DAILY 08/29/23 04/06/25 tablet,extended release 24 hr aflysnoc-upu-pyyly acid 0.4 1 tab PO DAILY 08/29/23 04/06/25 mg-lycopene 300 mcg-lutein 250 mcg tablet (Cerovite Senior) oxycodone-acetaminophen 5 mg-325 1 tab PO Q6H 08/29/23 04/06/25 mg tablet peg 400-propylene glycol (PF) 0.4 1 drp ophthalmic (eye) DAILY PRN 08/29/23 04/06/25 %-0.3 % eye drops in a dropperette (Systane (PF)) thiamine HCl (vitamin B1) 250 mg 250 mg PO DAILY 08/29/23 04/06/25 tablet triamcinolone acetonide 0.1 % 1 applic topical BID 08/29/23 04/06/25 topical cream acetaminophen 325 mg capsule 650 mg PO TID 02/19/24 04/06/25 artificial tears(hypromellose) 0.5 1 drp ophthalmic (eye) QID 02/19/24 04/06/25 % eye drops (Isopto Tears) cholecalciferol (vitamin D3) 50 50 mcg PO QDAY 02/19/24 04/06/25 mcg (2,000 unit) tablet gabapentin 300 mg capsule 900 mg PO TID 02/19/24 04/06/25 gabapentin 400 mg capsule 400 mg PO TID 02/19/24 04/06/25 ketoconazole 2 % topical cream 1 applic topical QDAY 02/19/24 04/06/25 miconazole nitrate 2 % topical 1 applic topical BID 02/19/24 04/06/25 powder (Antifungal (miconazole)) ondansetron 4 mg disintegrating 4 mg PO Q8H PRN 02/19/24 04/06/25 tablet sodium chloride 0.65 % nasal spray 2 spray intranasal Q2H PRN 02/19/24 04/06/25 aerosol (China Saline) sucralfate 1 gram tablet 1 g PO QID 02/19/24 04/06/25 acyclovir 5 % topical ointment 1 applic topical 6XD PRN 06/30/24 04/06/25 ammonium lactate 12 % lotion 1 applic topical BID PRN 06/30/24 04/06/25 tizanidine 4 mg capsule 4 mg PO TID PRN 06/30/24 04/06/25 bisacodyl 5 mg tablet,delayed 10 mg PO ONCE PRN 11/10/24 04/06/25 release (Dulcolax (bisacodyl)) semaglutide 0.25 mg or 0.5 mg (2 0.5 mg subcut QWEEK 11/10/24 04/06/25 mg/3 mL) subcutaneous pen injector (Ozempic) Previous Rx's ?Medication ?Instructions ?Recorded bisacodyl 5 mg tablet,delayed 5 mg PO QHS 0 days #30 tabs 11/10/24 release (Dulcolax (bisacodyl)) prednisone 10 mg tablet 10 mg PO QDAY #7 tabs 11/10/24 fluconazole 100 mg tablet 100 mg PO QDAY #7 tabs 12/16/24 (Diflucan) prednisone 10 mg tablet 10 mg PO QDAY #7 tabs 12/16/24 nystatin 100,000 unit/gram topical 1 applic topical BID #30 grams 02/04/25 powder Allergies Allergy/AdvReac Type Severity Reaction Status Date / Time clindamycin Allergy Severe Anaphylaxis Verified 04/06/25 21:55 cephalexin Allergy Mild Rash Verified 04/06/25 21:55 codeine Allergy Mild Itching Verified 04/06/25 21:55 erythromycin base Allergy Mild Rash Verified 04/06/25 21:55 meperidine (From Demerol) Allergy Mild Rash Verified 04/06/25 21:55 morphine Allergy Mild Rash Verified 04/06/25 21:55 propoxyphene Allergy Mild Rash Verified 04/06/25 21:55 Sulfa (Sulfonamide Allergy Mild Rash Verified 04/06/25 21:55 Antibiotics) Penicillins Allergy Unknown Verified 04/06/25 21:55 cyclobenzaprine AdvReac Mild Anxiety Verified 04/06/25 21:55 PFSH [facility] Medical History COPD (chronic obstructive pulmonary disease) ?J44.9 - Chronic obstructive pulmonary disease, unspecified (ICD-10) Tinea ?B35.9 - Dermatophytosis, unspecified (ICD-10) Constipation ?K59.00 - Constipation, unspecified (ICD-10) Nail fungus ?B35.1 - Tinea unguium (ICD-10) Allergies ?T78.40XA - Allergy, unspecified, initial encounter (ICD-10) Jamilah infection ?B37.9 - Candidiasis, unspecified (ICD-10) Debility ?R53.81 - Other malaise (ICD-10) Nasal congestion ?R09.81 - Nasal congestion (ICD-10) SOB (shortness of breath) ?R06.02 - Shortness of breath (ICD-10) Social History What is your current living situation?: I presently have a place to live Problems where you live: no known problems Problems where you live details: window does not open In the past 12 months, utilities in danger of being shut off: no In past 12 months, lack of transportation kept you from medical appts, meetings, work, or getting things needed for daily living: no In the past 12 mos, have been you worried that your food would run out before you had money to buy more?: sometimes true In the past 12 mos, the food you bought just didn't last and you didn't have money to buy more?: sometimes true Highest level of school completed/degree received: Associate degree: occupational, technical, vocational program Smoking Status: Former smoker What tobacco products do you use: cigarettes Years smoked: 30 Smoking quit date/years: <= 15 years ago Do you use any of these nicotine containing products: Vaping Products Second hand tobacco smoke exposure: No How often do you have a drink containing alcohol: monthly or less How many standard drinks containing alcohol do you have on a typical day: 1 or 2 How often do you have six or more drinks on one occasion: Never AUDIT-C Alcohol total score: 1 Non-prescribed substance use: denies use How often does anyone, including family, friends and others, physically hurt you: never How often does anyone, including family, friends and others, insult or talk down to you: never How often does anyone, including family, friends and others, threaten you with harm: never How often does anyone, including family, friends and others, scream or curse at you: never service: No Health Related Social Needs: food insecurity (Z59.41) Exam Const: Vital Signs, click to edit/add: Vital Signs - 24 hr 04/06/25 20:23 04/07/25 00:00 04/07/25 00:27 Temperature 98.4 F 97.9 F 98.9 F Pulse Rate [Left P ulse Oximeter] 95 102 H 104 H Respiratory Rate 20 18 18 Blood Pressure [Ri ght Arm] 181/94 H Blood Pressure [Ri ght Upper Arm] 170/86 H 156/89 H Pulse Oximetry 93 94 99 Oxygen Delivery Me thod Room Air Room Air Room Air Common normals: alert General appearance: cooperative Other: Mild distress due to pain, good historian. Appears well nourished, well hydrated. Physically debilitated. HENMT: Common normals: normocephalic, moist oral mucous membranes and oropharynx normal Head and scalp: normocephalic Face and sinus: normal facial exam Mouth: oral and palatal mucosa normal Throat: posterior oropharynx normal Eye: Common normals: conjunctivae normal General eye: normal appearance of both eyes Conjunctiva: conjunctiva(e) normal Neck & C-Spine: General: normal visual inspection Resp: Common normals: normal respiratory effort, no use of accessory muscles and clear to auscultation bilaterally Effort & inspection: able to speak in complete sentences Auscultation: clear to auscultation bilaterally Cardio: Common normals: regular rate, regular rhythm, S2 normal heart sound and no murmurs Rate: regular rate Rhythm: regular rhythm Heart sounds: S2 normal GI: Common normals: Normal to inspection, nondistended, normoactive bowel sounds present, soft to palpation, no hepatosplenomegaly and no masses Palpation: soft and no hepatosplenomegaly Other: Tender to palpation of epigastrium, right upper quadrant and left upper quadrant. No tenderness palpation of lower abdomen. No obvious mass. No rebound tenderness or guarding. : Common normals: no CVA tenderness Bladder/kidney exam: no CVA tenderness Back & Pelvis: Common normals: no CVA tenderness and thoracic and lumbar spine normal to inspection Extremity: Other: Normal muscle tone in lower extremities. No obvious effusions to wrists, ankles. No pitting edema, trace dependent edema noted in lower extremity. Neuro: Sensorium/orientation: alert Speech: speech normal Psych: Appearance: grossly normal Attitude: engaged Activity/motor behavior: appropriate eye contact Insight: insight good Judgement: judgment good Skin: Common normals: no rashes or lesions noted General skin exam: no rashes or lesions noted Course Course ED Course: 64-year-old female with epigastric pain radiating to the back suspicious for pancreatitis. Cannot exclude duodenal ulcer, gastric ulcer, gastritis, cholecystitis, choledocholithiasis, ischemic bowel, bowel obstruction, referred cardiac process, amongst many others. Will place peripheral IV, give 0.5 mg of IV Dilaudid, normal saline fluids. Has already received Zofran from EMS. Typical intra-abdominal labs, CT of the abdomen and pelvis after point care creatinine. Will await findings, suspect that she will require hospitalization. Reevaluation(s) Reevaluation #1: Counseled patient on CT findings consistent with pancreatitis. We had a significant delay for her lipase level because of multiple dilutions needed. But ultimately did show a lipase of around 20,000, consistent with suspected finding of pancreatitis. There were not any signs of biliary obstruction and gallbladder looked okay can CT. We can always consider doing a ultrasound in the morning if needed. She is feeling quite a bit better after the IV pain medicine. Is still having retching. IV fluids have been started. I have spoken with the hospitalist, her shift is ending and about 15 minutes but she has accepted admission for the incoming night coverage team, okay to transfer patient to floor in the interim. Remainder of labs look fairly reassuring. Update: Night hospitalist has received reports as well and will continue management. Vital Signs Vital signs: Initial Vital Signs Temperature 98.4 F 04/06/25 20:23 Temperature Source Temporal Artery Scan 04/06/25 20:23 Pulse Rate 95 04/06/25 20:23 Respiratory Rate 20 04/06/25 20:23 Blood Pressure 170/86 H 04/06/25 20:23 Blood Pressure Mean 114 H 04/06/25 20:23 Blood Pressure Position Supine 04/06/25 20:23 Pulse Oximetry 93 04/06/25 20:23 Oxygen Delivery Method Room Air 04/06/25 20:23 Vital Signs Temperature 98.4 F 04/06/25 20:23 Pulse Rate 95 04/06/25 20:23 Respiratory Rate 20 04/06/25 20:23 Blood Pressure 170/86 H 04/06/25 20:23 Pulse Oximetry 93 04/06/25 20:23 Oxygen Delivery Method Room Air 04/06/25 20:23 Temperature 98.9 F 04/07/25 00:27 Pulse Rate 104 H 04/07/25 00:27 Respiratory Rate 18 04/07/25 00:27 Blood Pressure 181/94 H 04/07/25 00:27 Pulse Oximetry 99 04/07/25 00:27 Oxygen Delivery Method Room Air 04/07/25 00:27 Medications Administered Medications: Generic Name Dose Route Start Last Admin Trade Name Freq PRN Reason Stop Dose Admin Hydromorphone HCl 0.5 mg 04/06/25 22:03 04/07/25 00:06 Hydromorphone 0.5 Mg/0.5 Ml Inj IVP 0.5 mg Q1H PRN Administration Discontinued Medications Generic Name Dose Route Start Last Admin Trade Name Freq PRN Reason Stop Dose Admin Hydromorphone HCl 0.5 mg 04/06/25 20:47 04/06/25 21:12 Hydromorphone 0.5 Mg/0.5 Ml Inj IVP 04/06/25 20:48 0.5 mg ONCE ONE Administration Sodium Chloride 1,000 mls @ 500 mls/hr 04/06/25 21:28 04/07/25 00:30 0.9 % Sodium Chloride 1000 Ml IV 04/06/25 23:27 Infused .Q2H ROSEANNA Infusion Ondansetron HCl 4 mg 04/06/25 21:28 04/06/25 22:05 Ondansetron 2 Mg/Ml Inj IVP 04/06/25 21:29 4 mg ONCE ONE Administration Medical Decision Making Lab Data Lab results reviewed: Yes I reviewed the patient's lab results Lab results narrative: Mild leukocytosis, marked elevation in lipase. Remainder of labs are pretty reassuring. Labs: Lab Results 1104/06/25 04/06/25 Range/Units 20:49 20:55 22:30 WBC 12.50 H (4.50-11.00) K/uL RBC 4.71 (4.00-5.20) m/uL Hgb 14.0 (12.0-16.0) gm/dL Hct 44.9 (33.0-51.0) % MCV 95 (80-100) fL MCH 30 (26-34) pg MCHC 31 L (32-36) gm/dL RDW Coeff of Sung 12.5 (11.5-15.5) % Plt Count 219 (140-440) K/uL Neut % (Auto) 77.9 H (42.0-72.0) % Lymph % (Auto) 13.4 L (20-44) % Carter % (Auto) 6.1 (0.0-11.0) % Eos % (Auto) 2.0 (0.0-7.0) % Baso % (Auto) 0.5 (0.0-3.0) % Neut # (Auto) 9.70 H (1.7-7.0) K/uL Lymph # (Auto) 1.70 (0.90-2.90) K/uL Carter # (Auto) 0.80 (0.00-0.90) K/UL Eos # (Auto) 0.30 (0.00-0.50) K/uL Baso # (Auto) 0.10 (0.00-0.30) K/uL Abs Immat Gran (auto) 0.00 (0.00-0.30) K/uL Imm/Tot Granulo (auto) 0.1 % Sodium 136 (135-149) mmol/L Potassium 4.5 (3.6-5.1) mmol/L Chloride 97 (96-114) mmol/L Carbon Dioxide 28 (20-32) mmol/L Anion Gap 11 (7-15) mEq/L BUN 9 (7-30) mg/dL Creatinine 0.7 (0.5-1.5) mg/dL Estimated Creat Clear 56.00 Estimated GFR 97 ml/min Glucose 117 H (60-115) mg/dL Lactate 1.6 (0.5-1.9) mmol/L Calcium 9.6 (8.4-10.6) mg/dL Total Bilirubin 0.5 (0.1-1.5) mg/dL AST 26 (12-35) U/L ALT 17 (4-35) U/L Alkaline Phosphatase 107 (40-150) U/L Troponin I < 0.01 (0.01-0.04) ng/mL C-Reactive Protein 0.7 (0.5-1.0) mg/dL Total Protein 7.9 (6.0-8.3) g/dL Albumin 4.5 (3.3-5.0) g/dL Lipase 27866 H (23-300) U/L Urine Color Yellow (Yellow) Urine Appearance Clear (Clear) Urine pH 6.5 (5.0-8.5) Ur Specific [place] 1.010 (1.000-1.030) Urine Protein Negative (Negative) Urine Glucose (UA) Negative (Negative) Urine Ketones Negative (Negative) Urine Blood Negative (Negative) Urine Nitrite Negative (Negative) Urine Bilirubin Negative (Negative) Urine Urobilinogen 0.2 (0.2-1.0) Ur Leukocyte Esterase Negative (Negative) Ethyl Alcohol < 0.01 (0.01-0.03) % POC Creatinine 0.8 (0.6-1.3) mg/dl Imaging Data CT scan - abdomen: Attestation: I have reviewed the pertinent imaging results. My impression: Some constipation. Does seem to be a little bit of swelling and stranding around the pancreas but not any severe inflammation. Gallbladder is little enlarged by do not see any surrounding fluid or severe thickening. No signs of free air or ascites Radiologist's impression: IMPRESSION: 1. Questionable minimal peripancreatic fat stranding along the uncinate process. Correlate with laboratory data to exclude mild acute pancreatitis. 2. Colonic diverticulosis without acute diverticulitis. 3. Prominent stool burden. Please note that all CT scans at this facility use dose modulation, iterative reconstruction, and/or weight-based dosing when appropriate to reduce radiation dose to as low as reasonably achievable. Dictated by Raúl Santiago MD @ 04/06/2025 10:07:44 PM Discharge Plan Discharge Clinical Impression: Acute pancreatitis Patient Disposition: Admitted As Inpatient Condition: Stable
[2025-04-06 21:01] LABS: Lactate Sepsis w/Reflex* 1.6 mmol/L (0.5-1.9)
[2025-04-06 21:04] LABS: Hematocrit* 44.9 % (33.0-51.0); Hemoglobin* 14.0 gm/dL (12.0-16.0); Immature Granulocytes Abs Auto 0.00 K/uL (0.00-0.30); Immature Granulocytes Pct Auto 0.1 %; Lymphocytes Absolute Auto 1.70 K/uL (0.90-2.90); Mean Corpuscular HGB Conc 31 gm/dL (32-36); Mean Corpuscular Hemoglobin 30 pg (26-34); Mean Corpuscular Volume 95 fL (80-100); RDW Coefficient of Variation % 12.5 % (11.5-15.5); Red Blood Count* 4.71 m/uL (4.00-5.20); Slide Review Reflex No; White Blood Count* 12.50 K/uL (4.50-11.00)
[2025-04-06 21:16] LABS: Albumin* 4.5 g/dL (3.3-5.0); Chloride* 97 mmol/L (96-114)
[2025-04-06 21:17] LABS: Potassium* 4.5 mmol/L (3.6-5.1); Sodium* 136 mmol/L (135-149)
[2025-04-06 21:19] LABS: Blood Urea Nitrogen* 9 mg/dL (7-30); Creatinine* 0.7 mg/dL (0.5-1.5); Est. Creatinine Clearance* 56.00; Estimated Glomerular Filt Rate 97 ml/min
[2025-04-06 21:19] LABS: Creatinine, Point-of-Care* 0.8 mg/dl (0.6-1.3)
[2025-04-06 21:20] LABS: Alanine Aminotransferase* 17 U/L (4-35); Alkaline Phosphatase* 107 U/L (40-150); Anion Gap 11 mEq/L (7-15); Aspartate Amino Transferase* 26 U/L (12-35); Bilirubin Total* 0.5 mg/dL (0.1-1.5); Calcium* 9.6 mg/dL (8.4-10.6); Carbon Dioxide* 28 mmol/L (20-32); Glucose* 117 mg/dL (60-115); Total Protein* 7.9 g/dL (6.0-8.3)
[2025-04-06 21:26] LABS: Ethanol* < 0.01 % (0.01-0.03)
[2025-04-06] MEDS: ONDANSETRON 2 MG/ML inj 4 MG IVP (22:05)
[2025-04-06 22:40] LABS: Appearance Urine Clear (Clear)
[2025-04-07] VITALS (8 sets, daily range): BP systolic 113–181; BP diastolic 74–94; PULSE 83–104; RESP 16–18; TEMP 36.2–37.2; O2SAT 91–99; BMI 25.9; BMI 26.0
--- NOTE | 2025-04-07 00:52 | W.PM.TELEH&P ---
Telehealth- H&P: HPI History of Present Illness Time Seen by Provider: 00:52 Date Seen: 04/07/25 Chief complaint: abdominal pain Narrative: Leandra Osuna is seen as an Interactive Telehealth visit. Leandra Osuna is a 64 year old female with past medical history of CAD, HTN, COPD, hypothyroidism, GERD, chronic pain, recurrent nonalcoholic pancreatitis who presents to the emergency department with complaint of abdominal pain. Abdominal pain began around 9 AM, described as being located in the epigastric region, radiating through to the back, characterized as cramping and spastic, associated with nausea and vomiting, exacerbated by eating, alleviated by holding her stomach, doubling over, or pain medications given in the ED. She developed chills yesterday which worsened this morning but has since resolved. She has had similar presentation in the past where she was diagnosed with pancreatitis, states sge was told she had a polyp in her gallbladder which may have played a role in her pancreatitis. She has been on Ozempic for 6 months and has been on 1 mg dose for several months. Since starting it, reports she has been having difficulty with bowel movements despite prn medications. She otherwise denies any other symptoms including fever, night sweats, chest pain, palpitations, diaphoresis, cough, shortness of breath. ED course: -Vital signs on presentation significant for: BP 170/86, HR 104 -Initial laboratory evaluation significant for: WBC 12.5, lipase 25367, UA negative for infection, blood alcohol (-) -CT abdomen/pelvis revealed: . Questionable minimal peripancreatic fat stranding along the uncinate process. Correlate with laboratory data to exclude mild acute pancreatitis. Colonic diverticulosis without acute diverticulitis. Prominent stool burden. -Therapies provided in the emergency department included: Zofran 4 mg, 1 L NS bolus, Dilaudid 0.5 mg, Tele-Hospitalist team contacted for further evaluation and management. Review of Systems Status of ROS: Reports: 10 or more systems reviewed and unremarkable except as noted in History and below [facility] Medical History COPD (chronic obstructive pulmonary disease) ?J44.9 - Chronic obstructive pulmonary disease, unspecified (ICD-10) Tinea ?B35.9 - Dermatophytosis, unspecified (ICD-10) Constipation ?K59.00 - Constipation, unspecified (ICD-10) Nail fungus ?B35.1 - Tinea unguium (ICD-10) Allergies ?T78.40XA - Allergy, unspecified, initial encounter (ICD-10) Jamilah infection ?B37.9 - Candidiasis, unspecified (ICD-10) Debility ?R53.81 - Other malaise (ICD-10) Nasal congestion ?R09.81 - Nasal congestion (ICD-10) SOB (shortness of breath) ?R06.02 - Shortness of breath (ICD-10) Social History What is your current living situation?: I presently have a place to live Problems where you live: no known problems Problems where you live details: window does not open In the past 12 months, utilities in danger of being shut off: no In past 12 months, lack of transportation kept you from medical appts, meetings, work, or getting things needed for daily living: no In the past 12 mos, have been you worried that your food would run out before you had money to buy more?: sometimes true In the past 12 mos, the food you bought just didn't last and you didn't have money to buy more?: sometimes true Highest level of school completed/degree received: Associate degree: occupational, technical, vocational program Smoking Status: Former smoker What tobacco products do you use: cigarettes Years smoked: 30 Smoking quit date/years: <= 15 years ago Do you use any of these nicotine containing products: Vaping Products Second hand tobacco smoke exposure: No How often do you have a drink containing alcohol: monthly or less How many standard drinks containing alcohol do you have on a typical day: 1 or 2 How often do you have six or more drinks on one occasion: Never AUDIT-C Alcohol total score: 1 Non-prescribed substance use: denies use How often does anyone, including family, friends and others, physically hurt you: never How often does anyone, including family, friends and others, insult or talk down to you: never How often does anyone, including family, friends and others, threaten you with harm: never How often does anyone, including family, friends and others, scream or curse at you: never service: No Health Related Social Needs: food insecurity (Z59.41) Meds Home Medications and Allergies Home Medications ?Medication ?Instructions ?Recorded ?Confirmed ?Type aspirin 81 mg capsule 81 mg PO DAILY 08/29/23 04/06/25 History cyanocobalamin (vitamin B-12) 1,000 mcg PO DAILY 08/29/23 04/06/25 History 1,000 mcg capsule folic acid 1 mg tablet 1 mg PO DAILY 08/29/23 04/06/25 History furosemide 20 mg tablet (Lasix) 20 mg PO DAILY 08/29/23 04/06/25 History levothyroxine 112 mcg tablet 112 mcg PO DAILY 08/29/23 04/06/25 History (Synthroid) methocarbamol 750 mg tablet 750 mg PO Q6H 08/29/23 04/06/25 History metoprolol succinate 25 mg 25 mg PO DAILY 08/29/23 04/06/25 History tablet,extended release 24 hr [id number]-tly-ghojz acid 0.4 1 tab PO DAILY 08/29/23 04/06/25 History mg-lycopene 300 mcg-lutein 250 mcg tablet (Cerovite Senior) oxycodone-acetaminophen 5 mg-325 1 tab PO Q6H 08/29/23 04/06/25 History mg tablet peg 400-propylene glycol (PF) 0.4 1 drp ophthalmic (eye) DAILY PRN 08/29/23 04/06/25 History %-0.3 % eye drops in a dropperette (Systane (PF)) thiamine HCl (vitamin B1) 250 mg 250 mg PO DAILY 08/29/23 04/06/25 History tablet triamcinolone acetonide 0.1 % 1 applic topical BID 08/29/23 04/06/25 History topical cream acetaminophen 325 mg capsule 650 mg PO TID 02/19/24 04/06/25 History artificial tears(hypromellose) 0.5 1 drp ophthalmic (eye) QID 02/19/24 04/06/25 History % eye drops (Isopto Tears) cholecalciferol (vitamin D3) 50 50 mcg PO QDAY 02/19/24 04/06/25 History mcg (2,000 unit) tablet gabapentin 300 mg capsule 900 mg PO TID 02/19/24 04/06/25 History gabapentin 400 mg capsule 400 mg PO TID 02/19/24 04/06/25 History ketoconazole 2 % topical cream 1 applic topical QDAY 02/19/24 04/06/25 History miconazole nitrate 2 % topical 1 applic topical BID 02/19/24 04/06/25 History powder (Antifungal (miconazole)) ondansetron 4 mg disintegrating 4 mg PO Q8H PRN 02/19/24 04/06/25 History tablet sodium chloride 0.65 % nasal spray 2 spray intranasal Q2H PRN 02/19/24 04/06/25 History aerosol ([place] Saline) sucralfate 1 gram tablet 1 g PO QID 02/19/24 04/06/25 History acyclovir 5 % topical ointment 1 applic topical 6XD PRN 06/30/24 04/06/25 History ammonium lactate 12 % lotion 1 applic topical BID PRN 06/30/24 04/06/25 History tizanidine 4 mg capsule 4 mg PO TID PRN 06/30/24 04/06/25 History bisacodyl 5 mg tablet,delayed 5 mg PO QHS 0 days #30 tabs 11/10/24 04/06/25 Rx release (Dulcolax (bisacodyl)) bisacodyl 5 mg tablet,delayed 10 mg PO ONCE PRN 11/10/24 04/06/25 History release (Dulcolax (bisacodyl)) prednisone 10 mg tablet 10 mg PO QDAY #7 tabs 11/10/24 04/06/25 Rx semaglutide 0.25 mg or 0.5 mg (2 0.5 mg subcut QWEEK 11/10/24 04/06/25 History mg/3 mL) subcutaneous pen injector (Ozempic) fluconazole 100 mg tablet 100 mg PO QDAY #7 tabs 12/16/24 04/06/25 Rx (Diflucan) prednisone 10 mg tablet 10 mg PO QDAY #7 tabs 12/16/24 04/06/25 Rx nystatin 100,000 unit/gram topical 1 applic topical BID #30 grams 02/04/25 04/06/25 Rx powder Allergies Allergy/AdvReac Type Severity Reaction Status Date / Time clindamycin Allergy Severe Anaphylaxis Verified 04/06/25 21:55 cephalexin Allergy Mild Rash Verified 04/06/25 21:55 codeine Allergy Mild Itching Verified 04/06/25 21:55 erythromycin base Allergy Mild Rash Verified 04/06/25 21:55 meperidine (From Demerol) Allergy Mild Rash Verified 04/06/25 21:55 morphine Allergy Mild Rash Verified 04/06/25 21:55 propoxyphene Allergy Mild Rash Verified 04/06/25 21:55 Sulfa (Sulfonamide Allergy Mild Rash Verified 04/06/25 21:55 Antibiotics) Penicillins Allergy Unknown Verified 04/06/25 21:55 cyclobenzaprine AdvReac Mild Anxiety Verified 04/06/25 21:55 Exam Narrative Exam Narrative: Physical Exam GENERAL: ?vital signs reviewed, well developed and nourished, in no distress HEENT: pupils are equal round and reactive to light, extraocular movements are grossly within normal limits and oral mucosa is moist. NECK: Supple without lymphadenopathy or thyromegaly according to nursing staff examination observation HEART: Regular rate and rhythm without any rubs, murmurs, or gallops. LUNGS: Clear to auscultation bilaterally with good air movement throughout ABDOMEN: Observation from nurse assisted exam, abdomen appears soft, diffusely tender in all 4 quadrants, and nondistended with Positive bowel sounds noted. EXTREMITIES: Strength and sensation is observed to be grossly within normal limits in the upper and lower extremities.? No focal strength deficit is observed. SKIN:? Observed warm and dry with color normal; some areas of redness in groin and under breasts Const Vital Signs, click to edit/add: Vital Signs - 24 hr 04/06/25 20:23 04/07/25 00:00 Temperature 98.4 F 97.9 F Pulse Rate [Left Pulse Oximeter] 95 102 H Respiratory Rate 20 18 Blood Pressure [Right Upper Arm] 170/86 H 156/89 H Pulse Oximetry 93 94 Oxygen Delivery Method Room Air Room Air Hospitalist - H&P: Result Labs Labs: Short CBC 04/06/25 Range/Units 20:55 WBC 12.50 H (4.50-11.00) K/uL Hgb 14.0 (12.0-16.0) gm/dL Hct 44.9 (33.0-51.0) % Plt Count 219 (140-440) K/uL BMP 04/06/25 20:55 Sodium 136 Potassium 4.5 Chloride 97 Carbon Dioxide 28 BUN 9 Creatinine 0.7 Glucose 117 H Calcium 9.6 Cardiac Enzymes 04/06/25 Range/Units 20:55 Troponin I < 0.01 (0.01-0.04) ng/mL Liver Function 04/06/25 Range/Units 20:55 Total Bilirubin 0.5 (0.1-1.5) mg/dL AST 26 (12-35) U/L ALT 17 (4-35) U/L Alkaline Phosphatase 107 (40-150) U/L Albumin 4.5 (3.3-5.0) g/dL Urine 04/06/25 Range/Units 22:30 Urine Color Yellow (Yellow) Urine Appearance Clear (Clear) Urine pH 6.5 (5.0-8.5) Ur Specific [place] 1.010 (1.000-1.030) Urine Protein Negative (Negative) Urine Glucose (UA) Negative (Negative) Assessment and Plan Assessment and plan (1) Acute pancreatitis: Status: Acute Plan 64-year-old female with past medical history significant for CAD, hypertension, COPD, hypothyroidism, chronic pain, recurrent alcohol pancreatitis who presents to the emergency department with complaint of abdominal pain found to have acute pancreatitis. # Acute pancreatitis # History of recurrent non-alcoholic pancreatitis -CT abdomen/pelvis revealed questionable minimal peripancreatic fat stranding along the uncinate process. Colonic diverticulosis without acute diverticulitis. Prominent stool burden -Blood alcohol level negative -hold Ozempic -initial lipase 19,414; continue to trend -status post 1 L NS bolus -continue on IV maintenance fluids -Liquid diet, advance as tolerated -check triglyceride level -p.r.n. Analgesics -p.r.n. Antiemetic # Constipation ? CT abdomen/pelvis findings as above ?Bowel regimen # Accelerated hypertension # History of essential hypertension - Adequate pain control -resume home antihypertensives -additional p.r.n. antihypertensives # SIRS ?Patient criteria with tachycardia, leukocytosis; no clear infectious source ? Low suspicion for infection ? Monitor off of antibiotics # Intertrigo -nystatin poweder Other chronic medical conditions: # History of CAD # History of COPD # History of hypothyroidism # History of GERD # History of chronic pain ? Continue home therapies ? Maintain outpatient follow-up DVT prophylaxis: Heparin Code status: Full Disposition: Pending clinical improvement and management above. Patient high risk as outlined above Total Time Spent Total Time Spent: >90 mins Telehealth: Statement Statement Telehealth Visit: Today's History and Physical is provided via interactive telehealth by Patricia Nieto MD.? Patient is located at [facility].? Provider is located at [facility].? Nursing staff assisted with the patient's exam. The visit being done today meets criteria for a telehealth visit and the patient or patient?s parent/guardian is aware the visit is a telehealth visit. Camera Start Time: 00:52 Camera End Time: 01:28
[2025-04-07] MEDS: MELATONIN 3 MG TABLET PO (02:35)
[2025-04-07] MEDS: TIZANIDINE HCL 4 MG TABLET PO ×2 (02:35→14:53)
[2025-04-07] MEDS: HEPARIN 5,000 UNIT/0.5 ML INJ 5000 UNIT SUBCUT ×2 (02:35→14:33)
[2025-04-07] MEDS: GABAPENTIN 300 MG CAPSULE 900 MG PO ×3 (02:50→18:55)
[2025-04-07] MEDS: OxyCODONE/APAP 5-325 TABLET 1 TAB PO ×4 (03:29→20:21)
[2025-04-07] MEDS: LACTATED RINGERS 1000 ML 1,000 ML 150 ML IV ×3 (03:29→18:33)
--- NOTE | 2025-04-07 04:04 | PC.NURSE ---
College Director called Dyllan at this time to request provider provide parameters for PRN Hydralazine order as order only states Hypertension.
[2025-04-07 06:17] LABS: Hematocrit* 41.9 % (33.0-51.0); Hemoglobin* 13.0 gm/dL (12.0-16.0); Immature Granulocytes Pct Auto 0.2 %; Mean Corpuscular HGB Conc 31 gm/dL (32-36); Mean Corpuscular Hemoglobin 30 pg (26-34); Mean Corpuscular Volume 96 fL (80-100); RDW Coefficient of Variation % 12.5 % (11.5-15.5); Red Blood Count* 4.36 m/uL (4.00-5.20); White Blood Count* 12.09 K/uL (4.50-11.00)
[2025-04-07 06:19] LABS: Immature Granulocytes Abs Auto 0.00 K/uL (0.00-0.30); Lymphocytes Absolute Auto 3.70 K/uL (0.90-2.90); Slide Review Reflex No
[2025-04-07 06:31] LABS: Albumin* 4.1 g/dL (3.3-5.0); Chloride* 99 mmol/L (96-114); Sodium* 139 mmol/L (135-149)
[2025-04-07 06:32] LABS: Potassium* 4.3 mmol/L (3.6-5.1)
[2025-04-07 06:34] LABS: Alanine Aminotransferase* 16 U/L (4-35); Alkaline Phosphatase* 100 U/L (40-150); Anion Gap 11 mEq/L (7-15); Aspartate Amino Transferase* 27 U/L (12-35); Bilirubin Total* 0.5 mg/dL (0.1-1.5); Blood Urea Nitrogen* 8 mg/dL (7-30); Calcium* 9.5 mg/dL (8.4-10.6); Carbon Dioxide* 29 mmol/L (20-32); Creatinine* 0.7 mg/dL (0.5-1.5); Est. Creatinine Clearance* 56.00; Estimated Glomerular Filt Rate 97 ml/min; Glucose* 80 mg/dL (60-115); Total Protein* 7.0 g/dL (6.0-8.3)
--- NOTE | 2025-04-07 06:34 | PC.NURSE ---
shift note: Pt is AOx4. Pt arrives from ED , IND w/ W/C. Able to stand on standing scale and BR IND. Pt requires help w/ IV pole. Pt states pain, pain meds given- See EMAR. Aqua K pad applied to back. Open wound on L buttock and pinkness on coccyx. Colloidal dressing C/D/I on L buttock. Pt has rash forehead, shins, and hands. Pt. denies itchiness. Pt. has redness under L breast and groin, Dyllan VELEZ shown during admission assessment. Pt IV removed when BR w/ AMAYA, Patient Admitting Clerk RN able to place new IV. LR fluids running. Pt up to recliner for rest. Legs elevated. Pt denies N/V.
[2025-04-07 06:35] LABS: Triglycerides* 150 mg/dL (40-149)
[2025-04-07] MEDS: METOPROLOL SUCCINATE (XL) 25 MG TAB PO (09:05)
[2025-04-07] MEDS: SUCRALFATE 1 GM TABLET PO ×4 (09:05→20:20)
[2025-04-07] MEDS: THIAMINE 100 MG TABLET 250 MG PO (09:05)
[2025-04-07] MEDS: ASPIRIN 81 MG TABLET EC PO (09:05)
[2025-04-07] MEDS: GABAPENTIN 100 MG CAPSULE PO ×3 (09:07→20:21)
[2025-04-07] MEDS: GABAPENTIN 300 MG CAPSULE PO ×3 (09:07→20:20)
[2025-04-07] MEDS: LEVOTHYROXINE 112 MCG TABLET PO (09:07)
[2025-04-07] MEDS: FOLIC ACID 1 MG TABLET PO (09:07)
--- NOTE | 2025-04-07 10:28 | W.PC.NUTR.HO ---
Hospital Nutrition Assessment Patient Data Patient Gender: Female Patient Age: 64 Height: 5 ft 7 in (170.18 cm) Weight: 165 lb 14.4 oz (75.40 kg) Body Mass Index: 25.9 Weight Calculations [employer] Body Weight (lbs): 135.00 [employer] Body Weight (kg): 61.24 Percent of [employer] Body Weight: 123 Adjusted Body Weight (lbs): 142.73 Adjusted Body Weight (kg): 64.74 Basal Energy Expenditure (BEE): 1394.97 Basal Energy Expenditure (BEE) Adjusted Weight: 1294.45 Activity/Stress Factors Injury Factor/Activity Factor Value: 1.1 Total Energy Requirements Kcal requirements (current wt): 1534.467 Kcal requirements (adj wt): 1423.895 Protein Need (current wt): 1.0 Total Protein (current wt): 75.251 Protein Need (adj wt): 1.0 Total Protein (adj wt): 64.740 Fluid Need (current wt): 30 Total Fluid (current wt): 2257.529 Fluid Need (adj wt): 30 Total Fluid (adj wt): 1942.20 Nutrition Assessment Diet Order: Clear Liquid Liquid Modified for Dysphagia: 0-Thin Allergies: NKFA Appetite Prior to Admission: Fair Appetite and Intake: Clear liquids since admit. Hx Weight Loss: Yes (On Ozempic [id number]; loss of 17 lbs since November (9.3%), -24lbs in 6m (12.6%)) Hx Weight Gain: No Nausea: Yes Vomiting: Yes Duration of Nausea/Vomitin-12 hours (prior to arrival) Hx Constipation: Yes (Since taking Ozempic) Chewing Difficulty: No Swallowing Difficulty: No Pressure Ulcer: Yes Comments: Receives wound care at [facility] for 3 pressure ulcers on buttock. These wounds have improved since treatment started. Two are not stage, only partial thickness. One is stage 3, this has improved. Diagnosis/Symptom or Procedure: pancreatitis Clinical History: Medical history includes but not limited to diabetes, obesity, coronary artery disease, stomach ulcers, prior pancreatitis, and severe peripheral neuropathy. Current Living Situation: Lives at [facility]. Medications Medications: reviewed. Lab Results Lab Results: reviewed. Assessment/Plan PES Statement: Intentional significant weight loss related to semaglutide use as evidenced by loss of 9.3% since November 2024 (4 months), and 12.6% since August 2024 (6 months) Nutritional Assessment Summary: RDN with nutrition screen related to significant weight loss. Patient also has had issues with constipation since starting semaglutide. Per MD report, patient started Ozempic (semaglutide) about 6 months ago. Since then, patient reports having weight loss and constipation. Per weight records, patient has lost about 17 lbs since November 2024 (4 months, 9.3%) and 24lbs Since August 2024 (6 months, 12.6%). This is significant weight loss, though intentional. Unsure is patient's appetite and oral intake has been affected by Ozempic and is contributing to her weight loss. Unable to visit with patient today despite attempting x3. Unsure of plan of care for patient at this time. She remains on clear liquids. Discharge Plan-Living Situation: TBD Goals: Advance diet to at least full liquids or greater per MD order. Plan/Recommendation: Diet order per MD order. RDN will continue to monitor and attempt to visit at later date when appropriate.
--- NOTE | 2025-04-07 10:33 | CRLHL7_ITS ---
For Patients: As a result of the Century Cures Act, medical imaging exams and procedure reports are released immediately into your electronic medical record. You may view this report before your referring provider. If you have questions, please contact your health care provider. Indication: Pancreatitis Technique: Sonography of the abdomen was performed limited to that which is discussed below. Comparison: Portions of a April 06, 2025 CT study. Findings: There is cholelithiasis. Multiple stones are identified which are not visible on the CT. Wall thickness is normal measuring about 1 millimeter. No pericholecystic fluid or reported sonographic Ring`s sign. The common duct measures 5 millimeters which is normal Impression: Cholelithiasis but no ultrasound evidence of acute cholecystitis or common duct obstruction. Dictated by Sin Dodd MD @ 04/07/2025 11:39:00 AM (Electronically Signed)
[2025-04-07] MEDS: NYSTATIN POWDER 1 APPLIC TOPICAL (14:47)
--- NOTE | 2025-04-07 15:09 | PC.NURSE ---
Addendum entered by Mary Brownlee RN 04/08/25 08:35: Egg Crater noted IV to L arm had infiltrated while administering the first Dilaudid pulled. Pt felt no effect of medicine. Left arm at IV site swelled and pt reports burning. IV fluids stopped and IV removed, compression wrap with koban applied. No signs of tissue injury noted over the shift. New IV placed to R forearm. Bleeding from IV cath port when needle retracted and pt reports I have thrombocytopenia. This is not listed in pt chart. Bleeding controlled when IV cap applied. Dilaudid given through new IV and pt reports pain relief. Second larger IV started with ultrasound guide to run fluids in. Original Note: Nursing Care Hours: [id number] Pt this shift managing pain with IV and PO meds. Pain reported to R side abdomen. Reports improvement in left side abdomen pain. Pt pivot transferring to w/c with SBA. VSS. Voiding and no BM. Dressing to L glute changed. Wound is healing stages, no open or draining areas. Limited clear liquid intake. Coffee offered for headache. Pt struggling with anxiety and frustration. States she feels like people don't believe me when I say I have pain. Home meds routine has been changed here at the hospital and pt worried about having neuropathy pain flare. Pt also verbally upset, stating she will leave the hospital because she states I am being told this is from drinking but I don't drink. Pt saw on her portal documents that it states she drinks 1-2 drinks a day but pt denies this. Charge nurse, life underwriter, and hospitalist talked with pt and pt satisfied with relieved by conversation. States she feels she has answers and is being heard.
--- NOTE | 2025-04-07 15:16 | P.IMPN_ITS ---
Assessment and Plan Assessment and plan (1) Acute pancreatitis: Problem comment: Consult surgery regarding acute pancreatitis with cholelithiasis. Improving with conservative management. Status: Acute (2) Cholelithiasis: Status: Acute (3) Impaired mobility: Problem comment: Uses wheelchair. Lives independently. Status: Acute Plan Continue in hospital for management of pancreatitis, pain medication, IV fluids. Total Time Spent Total Time Spent: Total time spent today is 60 minutes in coordination of care and reviewing outside records and discussing with patient and other providers ongoing man agement of pancreatitis Subjective Date Seen: 04/07/25 Interval history: Admission HPI: Leandra Osuna is a 64 year old female with past medical history of CAD, HTN, COPD, hypothyroidism, GERD, chronic pain, recurrent nonalcoholic pancreatitis who presents to the emergency department with comp laint of abdominal pain. Abdominal pain began around 9 AM, described as being located in the epigastric region, radiating through to the back, characterized as cramping and spastic, associated with nausea and vomiting, exacerbated by eating, alleviated by holding her stomach, doubling over, or pain medications given in the ED. She developed chills yesterday which worsened this morning but has since resolved. She has had similar presentation in the past where she was diagnosed with pancreatitis, states she was told she had a polyp in her gallbladder which may have played a role in her pancreatitis. She has been on Ozempic for 6 months and has been on 1 mg dose for several months. Since starting it, reports she has been having difficulty with bowel movements despite prn medications. She otherwise denies any other symptoms including fever, night sweats, chest pain, palpitations, diaphoresis, cough, shortness of breath. She reports 2 previous hospitalizations for pancreatitis. She is very clear that she does not currently drink any alcohol and in the past did not drink regularly or heavily. Previous bouts of pancreatitis were not thought alcohol related. Previous evaluation has shown possibly gallstones or gallbladder polyp. She has not had elevated triglycerides. There have been no medications implicated in her pancreatitis. 04/07/2025: Patient reports feeling quite a bit better this morning. She is tolerating clear liquid diet. No other concerns today. Exam Narrative: Exam Narrative: She is alert and appears in no distress. Respirations are clear to auscultation. Cardiovascular: S1, S2, regular rate and rhythm. Abdomen: Bowel sounds active. Abdomen is soft she has mild epigastric tenderness extending towards her right flank. No mass. No peritonitis. Extremities without edema. Good peripheral perfusion. Const: Vital Signs, click to edit/add: Vital Signs - 24 hr 04/06/25 20:23 04/07/25 00:00 04/07/25 00:27 Temperature 98.4 F 97.9 F 98.9 F Pulse Rate [Left P ulse Oximeter] 95 102 H 104 H Respiratory Rate 20 18 18 Blood Pressure [Ri ght Arm] 181/94 H Blood Pressure [Ri ght Upper Arm] 170/86 H 156/89 H Pulse Oximetry 93 94 99 Oxygen Delivery Me thod Room Air Room Air Room Air 04/07/25 00:27 04/07/25 02:45 04/07/25 09:00 Temperature 98.7 F 97.3 F L Pulse Rate [Left P ulse Oximeter] 94 93 Respiratory Rate 18 16 18 Blood Pressure [Ri ght Arm] 159/84 H 151/78 H Blood Pressure [Ri ght Upper Arm] Pulse Oximetry 99 95 95 Oxygen Delivery Me thod Room Air Room Air Room Air 04/07/25 11:00 Temperature Pulse Rate [Left P ulse Oximeter] 92 Respiratory Rate 18 Blood Pressure [Ri ght Arm] 145/74 H Blood Pressure [Ri ght Upper Arm] Pulse Oximetry 94 Oxygen Delivery Me thod Room Air Documenting provider has reviewed patient's vital signs: yes Labs Labs: Laboratory Results - last 24 hr 04/06/25 04/06/25 04/06/25 20:49 20:55 22:30 WBC 12.50 H RBC 4.71 Hgb 14.0 Hct 44.9 MCV 95 MCH 30 MCHC 31 L RDW Coeff of Sung 12.5 Plt Count 219 Neut % (Auto) 77.9 H Lymph % (Auto) 13.4 L [place] % (Auto) 6.1 Eos % (Auto) 2.0 Baso % (Auto) 0.5 Neut # (Auto) 9.70 H Lymph # (Auto) 1.70 [place] # (Auto) 0.80 Eos # (Auto) 0.30 Baso # (Auto) 0.10 Abs Immat Gran (auto) 0.00 Imm/Tot Granulo (auto) 0.1 Sodium 136 Potassium 4.5 Chloride 97 Carbon Dioxide 28 Anion Gap 11 BUN 9 Creatinine 0.7 Estimated Creat Clear 56.00 Estimated GFR 97 Glucose 117 H Lactate 1.6 Calcium 9.6 Total Bilirubin 0.5 AST 26 ALT 17 Alkaline Phosphatase 107 Troponin I < 0.01 C-Reactive Protein 0.7 Total Protein 7.9 Albumin 4.5 Triglycerides Lipase 52850 H Urine Color Yellow Urine Appearance Clear Urine pH 6.5 Ur Specific [place] 1.010 Urine Protein Negative Urine Glucose (UA) Negative Urine Ketones Negative Urine Blood Negative Urine Nitrite Negative Urine Bilirubin Negative Urine Urobilinogen 0.2 Ur Leukocyte Esterase Negative Ethyl Alcohol < 0.01 POC Creatinine 0.8 04/07/25 05:54 WBC 12.09 H RBC 4.36 Hgb 13.0 Hct 41.9 MCV 96 MCH 30 MCHC 31 L RDW Coeff of Sung 12.5 Plt Count 208 Neut % (Auto) 58.1 Lymph % (Auto) 31.0 [place] % (Auto) 7.8 Eos % (Auto) 2.3 Baso % (Auto) 0.6 Neut # (Auto) 7.00 Lymph # (Auto) 3.70 H [place] # (Auto) 0.90 Eos # (Auto) 0.30 Baso # (Auto) 0.10 Abs Immat Gran (auto) 0.00 Imm/Tot Granulo (auto) 0.2 Sodium 139 Potassium 4.3 Chloride 99 Carbon Dioxide 29 Anion Gap 11 BUN 8 Creatinine 0.7 Estimated Creat Clear 56.00 Estimated GFR 97 Glucose 80 Lactate Calcium 9.5 Total Bilirubin 0.5 AST 27 ALT 16 Alkaline Phosphatase 100 Troponin I C-Reactive Protein Total Protein 7.0 Albumin 4.1 Triglycerides 150 H Lipase 8367 H Urine Color Urine Appearance Urine pH Ur Specific [place] Urine Protein Urine Glucose (UA) Urine Ketones Urine Blood Urine Nitrite Urine Bilirubin Urine Urobilinogen Ur Leukocyte Esterase Ethyl Alcohol POC Creatinine Imaging US - abdomen: Radiologist's impression: Indication: Pancreatitis Technique: Sonography of the abdomen was performed limited to that which is discussed below. Comparison: Portions of a April 06, 2025 CT study. Findings: There is cholelithiasis. Multiple stones are identified which are not visible on the CT. Wall thickness is normal measuring about 1 millimeter. No pericholecystic fluid or reported sonographic Ring`s sign. The common duct measures 5 millimeters which is normal Impression: Cholelithiasis but no ultrasound evidence of acute cholecystitis or common duct obstruction.
--- NOTE | 2025-04-07 15:23 | PC.SOCIAL ---
Addendum entered by JANINA Lee 04/07/25 15:32: Discharge planning: drug abuse worker also talked to the pt about the foodshelf through the [facility]. She said she used to use it, but doesn't anymore because she does not like their selection of food that they offer. Pt states that she doesn't plan to use the foodshelf again anytime soon. Social work to follow-up as needed. Original Note: Social work note: drug abuse worker met with pt to address psycho-social needs and food insecurity that she discussed in her admission to the hospital. Pt states that she didn't get her SNAP/EBT benefits this month because of the government shutdown, but has since received them. Pt states that she has friends that will take her grocery shopping or go get her groceries, but she just hasn't had the SNAP/EBT benefits to do that, but now she does. Pt states that getting groceries in the winter can be hard on her and her friends. drug abuse worker encouraged her to look into [facility] for grocery delivery and they also accept SNAP/EBT benefits. Pt was thankful for the information. Pt has a nurse through [facility] that comes once a week for wound care on her back and a homemaker through [facility] that comes for two hours a week on and helps with laundry and other daily tasks. Pt states that she plans to return back to her apartment at discharge from the hospital. No other social media marketing manager needs were identified. Pt states that she will inform her [facility] workers that she is in the hospital. Social work to follow-up as needed.
[2025-04-07] MEDS: ONDANSETRON ODT 4 MG TAB PO (15:53)
[2025-04-08] MEDS: LACTATED RINGERS 1000 ML 1,000 ML 150 ML IV (00:13)
[2025-04-08 03:00] VITALS: BP 138/75; PULSE 77; RESP 18; TEMP 36.6; O2SAT 93
[2025-04-08] MEDS: GABAPENTIN 300 MG CAPSULE 900 MG PO ×2 (03:03→09:34)
[2025-04-08] MEDS: OxyCODONE/APAP 5-325 TABLET 1 TAB PO (03:03)
[2025-04-08] MEDS: HEPARIN 5,000 UNIT/0.5 ML INJ 5000 UNIT SUBCUT (03:04)
[2025-04-08 07:00] VITALS: BP 160/76; PULSE 94; RESP 18; TEMP 36.9; O2SAT 95
[2025-04-08] MEDS: SUCRALFATE 1 GM TABLET PO (07:56)
[2025-04-08] MEDS: METOPROLOL SUCCINATE (XL) 25 MG TAB PO (07:57)
[2025-04-08] MEDS: GABAPENTIN 100 MG CAPSULE PO (07:57)
[2025-04-08] MEDS: GABAPENTIN 300 MG CAPSULE PO (07:57)
[2025-04-08] MEDS: FOLIC ACID 1 MG TABLET PO (07:57)
[2025-04-08] MEDS: ASPIRIN 81 MG TABLET EC PO (07:58)
[2025-04-08] MEDS: THIAMINE 100 MG TABLET 250 MG PO (07:58)
[2025-04-08] MEDS: LEVOTHYROXINE 112 MCG TABLET PO (08:01)
[2025-04-08] MEDS: TIZANIDINE HCL 4 MG TABLET PO (08:05)
[2025-04-08] MEDS: NYSTATIN POWDER 1 APPLIC TOPICAL (09:31)
--- NOTE | 2025-04-08 09:40 | W.PC.NUTR.HO ---
Hospital Nutrition Assessment Patient Data Patient Gender: Female Patient Age: 64 Height: 5 ft 7 in (170.18 cm) Weight: 165 lb 14.4 oz (75.40 kg) Body Mass Index: 25.9 Weight Calculations [place] Body Weight (lbs): 135.00 [place] Body Weight (kg): 61.24 Percent of [place] Body Weight: 123 Adjusted Body Weight (lbs): 142.73 Adjusted Body Weight (kg): 64.74 Basal Energy Expenditure (BEE): 1394.97 Basal Energy Expenditure (BEE) Adjusted Weight: 1294.45 Activity/Stress Factors Injury Factor/Activity Factor Value: 1.1 Total Energy Requirements Kcal requirements (current wt): 1534.467 Kcal requirements (adj wt): 1423.895 Protein Need (current wt): 1.0 Total Protein (current wt): 75.251 Protein Need (adj wt): 1.0 Total Protein (adj wt): 64.740 Fluid Need (current wt): 30 Total Fluid (current wt): 2257.529 Fluid Need (adj wt): 30 Total Fluid (adj wt): 1942.20 Nutrition Assessment Diet Order: Regular Liquid Modified for Dysphagia: 0-Thin Allergies: NKFA Appetite Prior to Admission: Fair Appetite and Intake: Clear liquids since admit. Hx Weight Loss: Yes (On Ozempic [id number]; loss of 17 lbs since November (9.3%), -24lbs in 6m (12.6%)) Hx Weight Gain: No Nausea: Yes Vomiting: Yes Duration of Nausea/Vomitin-12 hours (prior to arrival) Hx Constipation: Yes (Since taking Ozempic) Chewing Difficulty: No Swallowing Difficulty: No Pressure Ulcer: Yes Comments: Receives wound care at [facility] for 3 pressure ulcers on buttock. These wounds have improved since treatment started. Two are not stage, only partial thickness. One is stage 3, this has improved. Diagnosis/Symptom or Procedure: pancreatitis Clinical History: Medical history includes but not limited to diabetes, obesity, coronary artery disease, stomach ulcers, prior pancreatitis, and severe peripheral neuropathy. Current Living Situation: Lives at [facility]. Medications Medications: reviewed. Lab Results Lab Results: reviewed. Education Dietary Topic: High Fiber (Handouts with discussion: Constipation Nutrition Therapy (NCM).) and Low Fat (Handouts with discussion: Pancreatitis Nutrition Therapy and Label Reading (NCM).) Topic Comment: Also, discussed the importance of protein intake and including each time she eats meals and snacks. Response to Teaching: Verbalize Understanding (Patient reported she will contact if questions arise.) Teaching Methods: Written (See above.) Teaching Recipient: Patient Assessment/Plan PES Statement: Intentional significant weight loss related to semaglutide use as evidenced by loss of 9.3% since November 2024 (4 months), and 12.6% since August 2024 (6 months) Nutrition knowledge deficit and need for education related to pancreatitis diagnosis and constipation as evidenced by current diet and intake recall. Nutritional Assessment Summary: Follow up to assessment of 04/07/25. Visited with patient today. Patient reports weight loss has been intentional with ozempic. She also reports weight loss has stalled recently. She reports intake is variable related to appetite and accessibility to food (resources provided by social service and nursing). Patient reports usual intake is 2 meals a day, one in the morning and one in the evening with snacks between meals of fresh fruit if she can afford the fruit. She reports about 5 cups of plain water, 3 cups of sweet, iced tea and 1 cup of coffee a day with non oksana, no fat creamer. We discussed economical options in frozen and canned produce which patient reports willingness. Patient reports pain following breakfast this morning of an omelet toast and sausage. Provided education as noted above (low fat, lean protein--with each intake, including snacks, high fiber, plenty of water--meal plans included). Also, discussed the option of nutrition supplements toward adequate protein and overall nutrition if decreased appetite, to which she reported having tried and did not like and does not want to try any again. Patient reports awareness of need for protein with healing related to past education. Patient reports planning to stop ozempic. She reports constipation was not an issue prior to using ozempic. She also reports weight loss has stalled recently. Discussed patient visit with MD. Discharge Plan-Living Situation: TBD Goals: Tolerance of regular diet as ordered with intake of 75%+ of all meals. Plan/Recommendation: Diet order per MD order. Monitor for diet tolerance and intake. Follow up prn. Contact information provided for patient related to follow up questions. Malnutrition Assessment Current Energy Intake: Unable To Determine (Patient recall of usual intake is variable.) Current Energy Intake Comment: First meal this morning. Weight Changes: 7.5% In 3 Months and >10% In 6 Months (Patient with intentional weight loss meds include ozempic.) Recommended Malnutrition Diagnosis: Unable To Determine and Further Physical Evaluation Required By MD To Determine In The Context: Acute Injury/Illness and Chronic Illness (Hgb, Na, K, BUN, Cre, Albumin and protein within normal limits.)
[2025-04-08 09:43] VITALS: BMI 25.9
[2025-04-08 09:57] LABS: Hematocrit* 40.7 % (33.0-51.0); Hemoglobin* 12.7 gm/dL (12.0-16.0); Immature Granulocytes Abs Auto 0.01 K/uL (0.00-0.30); Immature Granulocytes Pct Auto 0.1 %; Lymphocytes Absolute Auto 2.45 K/uL (0.90-2.90); Mean Corpuscular HGB Conc 31 gm/dL (32-36); Mean Corpuscular Hemoglobin 30 pg (26-34); Mean Corpuscular Volume 96 fL (80-100); RDW Coefficient of Variation % 12.8 % (11.5-15.5); Red Blood Count* 4.25 m/uL (4.00-5.20); White Blood Count* 9.49 K/uL (4.50-11.00)
[2025-04-08 09:59] LABS: Slide Review Reflex No
[2025-04-08 10:08] LABS: Albumin* 4.0 g/dL (3.3-5.0)
[2025-04-08 10:11] LABS: Alanine Aminotransferase* 21 U/L (4-35); Alkaline Phosphatase* 84 U/L (40-150); Aspartate Amino Transferase* 51 U/L (12-35); Bilirubin Direct* 0.2 mg/dL (0.0-0.5); Bilirubin Total* 0.4 mg/dL (0.1-1.5); Total Protein* 6.9 g/dL (6.0-8.3)
--- NOTE | 2025-04-08 10:43 | P.DS_ITS ---
DS: Providers Provider Date Seen: 04/08/25 Date of admission: 04/07/25 00:28 Primary care physician: Sonny Bowles MD Admitting Clinician: Estrellita Blanchard MD Attending Physician on discharge: Dominic Potts MD Date of Discharge: 04/08/25 DS: Diagnosis Discharge Diagnosis (1) Acute pancreatitis: Status: Acute Problem details: Consult surgery regarding acute pancreatitis with cholelithiasis. Improving with conservative management. (2) Cholelithiasis: Status: Acute (3) Impaired mobility: Status: Acute Problem details: Uses wheelchair. Lives independently. (4) Polypharmacy: Status: Acute Problem details: Patient is on multiple psychoactive medications for managing pain including high-dose gabapentin, methocarbamol, tizanidine, oxycodone. DS: Summary Hospital Course Hospital Course: Admission HPI: Leandra Osuna is a 64 year old female with past medical history of CAD, HTN, COPD, hypothyroidism, GERD, chronic pain, recurrent nonalcoholic pancreatitis who presents to the emergency department with complaint of abdominal pain. Abdominal pain began around 9 AM, described as being located in the epigastric region, radiating through to the back, characterized as cramping and spastic, associated with nausea and vomiting, exacerbated by eating, alleviated by holding her stomach, doubling over, or pain medications given in the ED. She developed chills yesterday which worsened this morning but has since resolved. She has had similar presentation in the past where she was diagnosed with pancreatitis, states she was told she had a polyp in her gallbladder which may have played a role in her pancreatitis. She has been on Ozempic for 6 months and has been on 1 mg dose for several months. Since starting it, reports she has been having difficulty with bowel movements despite prn medications. She otherwise denies any other symptoms including fever, night sweats, chest pain, palpitations, diaphoresis, cough, shortness of breath. She reports 2 previous hospitalizations for pancreatitis. She is very clear that she does not currently drink any alcohol and in the past did not drink regularly or heavily. Previous bouts of pancreatitis were not thought alcohol related. Previous evaluation has shown possibly gallstones or gallbladder polyp. She has not had elevated triglycerides. There have been no medications implicated in her pancreatitis. Patient had continued improvement in pain. She did have some increase in her pain after eating eggs and sausage for breakfast. Now feeling better again. Status at Discharge Functional status at discharge: wheelchair bound Overall status at discharge: patient is progressing back to baseline Time Spent with Patient Time attestation: Total time spent providing and/or coordinating discharge services: 40 minutes Time spent: Greater than 30 minutes Exam Narrative: Exam Narrative: She is alert and in no distress. Abdomen is soft with minimal tenderness reported in the right upper quadrant. No mass or peritonitis or rebound. Const: Vital Signs, click to edit/add: Vital Signs - 24 hr 04/07/25 11:00 04/07/25 15:00 04/07/25 19:00 Temperature 97.2 F L 98 F Pulse Rate [Left P ulse Oximeter] 92 97 87 Respiratory Rate 18 18 18 Blood Pressure [Ri ght Arm] 145/74 H 113/85 152/85 H Pulse Oximetry 94 91 96 Oxygen Delivery Me thod Room Air Room Air Room Air 04/07/25 23:00 04/07/25 23:00 04/08/25 03:00 Temperature 98 F 98 F Pulse Rate [Left P ulse Oximeter] 83 83 77 Respiratory Rate 18 18 18 Blood Pressure [Ri ght Arm] 150/80 H 138/75 Pulse Oximetry 95 93 Oxygen Delivery Me thod Room Air Room Air 04/08/25 07:00 04/08/25 07:00 Temperature 98.4 F Pulse Rate [Left P ulse Oximeter] 94 94 Respiratory Rate 18 18 Blood Pressure [Ri ght Arm] 160/76 H Pulse Oximetry 95 Oxygen Delivery Me thod Room Air Documenting provider has reviewed patient's vital signs: yes DS: Data Data Completed and Pending Labs on day of discharge: Labs from last 24 hours 04/08/25 09:49 WBC 9.49 RBC 4.25 Hgb 12.7 Hct 40.7 MCV 96 MCH 30 MCHC 31 L RDW Coeff of Sung 12.8 Plt Count 196 Neut % (Auto) 60.4 Lymph % (Auto) 25.8 [place] % (Auto) 8.0 Eos % (Auto) 5.3 Baso % (Auto) 0.4 Neut # (Auto) 5.73 Lymph # (Auto) 2.45 [place] # (Auto) 0.80 Eos # (Auto) 0.50 Baso # (Auto) 0.04 Abs Immat Gran (auto) 0.01 Imm/Tot Granulo (auto) 0.1 Total Bilirubin 0.4 Direct Bilirubin 0.2 AST 51 H ALT 21 Alkaline Phosphatase 84 Total Protein 6.9 Albumin 4.0 Lipase 598 H Imaging US - abdomen: Radiologist's impression: Indication: Pancreatitis Technique: Sonography of the abdomen was performed limited to that which is discussed below. Comparison: Portions of a April 06, 2025 CT study. Findings: There is cholelithiasis. Multiple stones are identified which are not visible on the CT. Wall thickness is normal measuring about 1 millimeter. No pericholecystic fluid or reported sonographic Ring`s sign. The common duct measures 5 millimeters which is normal Impression: Cholelithiasis but no ultrasound evidence of acute cholecystitis or common duct obstruction. CT scan - abdomen: Radiologist's impression: INDICATION: Abdominal pain radiating to back. TECHNIQUE: CT abdomen and pelvis acquired with 80 cc Isovue 370 IV contrast. COMPARISON: CT abdomen pelvis 11/27/2023. FINDINGS: Lower chest: Unremarkable. Liver: Unremarkable. Gallbladder and bile ducts: Unremarkable. Pancreas: Questionable minimal peripancreatic fat stranding along the uncinate process. No pancreatic ductal dilatation. No peripancreatic fluid collection. Spleen: Unremarkable. Adrenal glands: Unremarkable. Kidneys: Symmetric renal enhancement. No hydronephrosis or hydroureter. No urinary calculi. GI tract: No bowel obstruction. Colonic diverticulosis without acute diverticulitis. Prominent stool burden. Normal appendix. No suspicious bowel wall thickening. Vasculature: Atherosclerotic calcifications of the abdominal aorta and its major branches. No abdominal aortic aneurysm. Grossly patent vasculature. Lymph nodes: No suspicious lymphadenopathy. Peritoneum/Abdominal Wall: No ascites or pneumoperitoneum. No acute abdominal wall abnormality. Unchanged left lateral and posterior soft tissue metallic density foreign bodies. Pelvis: Normal bladder. No suspicious adnexal mass. Bones: No acute abnormality. IMPRESSION: 1. Questionable minimal peripancreatic fat stranding along the uncinate process. Correlate with laboratory data to exclude mild acute pancreatitis. 2. Colonic diverticulosis without acute diverticulitis. 3. Prominent stool burden. Discharge Plan Discharge Disposition: Home, Self-Care Date of Admission: 04/07/25 00:28 Attending Provider on Discharge: Luis Daniel Potts Consulting Providers: Deisi Ochoa Christina Primary Care Provider: Sonny Bowles Condition: Stable Anticipated Discharge Date/Time: 04/08/25 11:00 Discharge Medications: Continued gabapentin 400 mg capsule 400 mg PO TID acetaminophen 325 mg capsule 650 mg PO TID miconazole nitrate [Antifungal (miconazole)] 2 % powder 1 applic topical BID cholecalciferol (vitamin D3) 50 mcg (2,000 unit) tablet 50 mcg PO QDAY gabapentin 300 mg capsule 900 mg PO TID Isopto Tears 0.5 % drops 1 drp ophthalmic (eye) QID ketoconazole 2 % cream 1 applic topical QDAY ondansetron 4 mg tablet,disintegrating 4 mg PO Q8H PRN Olds Saline 0.65 % aerosol,spray 2 spray intranasal Q2H PRN sucralfate 1 gram tablet 1 g PO QID ammonium lactate 12 % lotion 1 applic topical BID PRN tizanidine 4 mg capsule 4 mg PO TID PRN bisacodyl [Dulcolax (bisacodyl)] 5 mg tablet,delayed release (DR/EC) 10 mg PO ONCE PRN bisacodyl [Dulcolax (bisacodyl)] 5 mg tablet,delayed release (DR/EC) 5 mg PO QHS Qty: 30 0RF oxycodone-acetaminophen 5-325 mg tablet 1 tab PO Q6H metoprolol succinate 25 mg tablet extended release 24 hr 25 mg PO DAILY methocarbamol 750 mg tablet 750 mg PO Q6H thiamine HCl (vitamin B1) 250 mg tablet 250 mg PO DAILY triamcinolone acetonide 0.1 % cream 1 applic topical BID levothyroxine [Synthroid] 112 mcg tablet 112 mcg PO DAILY aspirin 81 mg capsule 81 mg PO DAILY Systane (PF) 0.4-0.3 % dropperette 1 drp ophthalmic (eye) DAILY PRN furosemide [Lasix] 20 mg tablet 20 mg PO DAILY folic acid 1 mg tablet 1 mg PO DAILY Cerovite Senior 0.4 mg-300 mcg- 250 mcg tablet 1 tab PO DAILY cyanocobalamin (vitamin B-12) 1,000 mcg capsule 1,000 mcg PO DAILY acyclovir 5 % ointment 1 applic topical 6XD PRN nystatin 100,000 unit/gram powder 1 applic topical BID Qty: 30 3RF Discontinued Ozempic 1 mg/dose (4 mg/3 mL) pen injector 1 mg subcut Q7D Discharge Orders: Discharge Order (Routine); Ordered 04/08/25 Ordered By: Luis Daniel Potts Activity Level: Activity as Tolerated Discharge Diet: Heart Healthy (2 gm sodium, low fat) Diet Detail: avoid fried and fatty foods Follow Up Appointments: Katherine Rivas MD [Staff Physician, General Surgery] Referral Note: 1-2 weeks Sonny Bowles MD [Primary Care Provider, Internal Medicine] Referral Note: 1-2 weeks Forms: [employer] Info Instructions
[2025-04-08 11:00] VITALS: BP 108/76; PULSE 84; RESP 17; TEMP 36.7; O2SAT 95
--- NOTE | 2025-04-08 12:24 | PC.NURSE ---
End of shift report [id number]: Alert and oriented x 4. Cooperative with cares. Diet advanced, patient able to tolerate small amounts of regular food, does report increased right side pain with higher fat foods. Low fat, low cholesterol diet reviewed with patient, seals engraver was also consulted and reviewed proper intake with patient. Pain managed with current regimen. Transfers with SBA, wheelchair used for locomotion on unit. Discharge paperwork reviewed with patient and assisted to front door for rider from taxi service. No questions at this time.
== END 2025-04-08 12:20 | disposition home or self-care (01) | DRG 282 ==
LOC: ED 23:54 → MEDSURG 04-07 00:29
PROVIDERS: Family Medicine; Admitting Provider Internal Medicine; Emergency Provider Family Medicine; PCP Internal Medicine; Visit Provider Internal Medicine
DX: K85.90 Acute pancreatitis without necrosis or infection, unspecified (principal); K80.20 Calculus of gallbladder without cholecystitis without obstruction; I25.10 Atherosclerotic heart disease of native coronary artery without angina pectoris; R65.10 Systemic inflammatory response syndrome (SIRS) of non-infectious origin without acute organ dysfunction; K21.9 Gastro-esophageal reflux disease without esophagitis; I10 Essential (primary) hypertension; J44.9 Chronic obstructive pulmonary disease, unspecified; E03.9 Hypothyroidism, unspecified; K57.30 Diverticulosis of large intestine without perforation or abscess without bleeding; K59.00 Constipation, unspecified; L30.4 Erythema intertrigo; Z79.82 Long term (current) use of aspirin; Z79.899 Other long term (current) drug therapy; Z88.5 Allergy status to narcotic agent; Z88.2 Allergy status to sulfonamides; Z88.0 Allergy status to penicillin; Z88.1 Allergy status to other antibiotic agents; Z79.891 Long term (current) use of opiate analgesic
CPT/HCPCS: 36415; 74177; 76705; 80053; 80076; 81003; 82077; 82565; 83605; 83690; 84478; 84484; 85025; 86140; 99285; A9270; J1171; J1644; J2405; J7030; J7120; Q9967

== ENCOUNTER 2025-04-12 08:13 | Outpatient (CLI) | payer MEDICAID, SELFPAY | END 2025-04-12 08:14 | disposition home or self-care (01) | LOC: WOUND 08:13 | PROVIDERS: PCP Internal Medicine; Visit Provider Nurse Practitioner Family | DX: G62.9 Polyneuropathy, unspecified (principal); M17.11 Unilateral primary osteoarthritis, right knee; M16.52 Unilateral post-traumatic osteoarthritis, left hip; R26.9 Unspecified abnormalities of gait and mobility; Z87.2 Personal history of diseases of the skin and subcutaneous tissue; Z65.8 Other specified problems related to psychosocial circumstances; Z99.3 Dependence on wheelchair | CPT/HCPCS: G0463 ==